=== PATIENT | female | born 1955 | race Caucasian/White ===

== ENCOUNTER → 2021-11-22 08:19 | Outpatient (CLI) | payer MEDICARE, OTHER, SELFPAY ==
[2021-11-22 09:27] LABS: Hematocrit 43.3 % (37-47); Hemoglobin 14.3 g/dL (12.0-15.0); Mean Corpuscular Hgb 29.3 pg (27.0-32.0); Mean Corpuscular Volume 88.7 fL (81-99); Mean Platelet Vol. 10.4 fl (6.2-12.0); Platelet Count 259 K/mm3 (150-450); RBC Distribution Width CV 12.9 % (11.6-14.6); Red Blood Count 4.88 M/mm3 (4.2-5.4); White Blood Count 7.1 K/mm3 (4.4-11.0)
[2021-11-22 10:00] LABS: AST(SGOT) 17 U/L (15-37); Alanine Aminotransfer ALT/SGPT 23 U/L (13-56); Albumin, Serum 3.6 g/dL (3.2-5.0); Alkaline Phosphatase 105 U/L (45-117); Anion Gap 4 (5-15); BUN 24 mg/dL (7-18); BUN/Creat Ratio 23.5 RATIO (10-20); Calcium,Total 8.9 mg/dL (8.5-10.1); Chloride 105 mmol/L (98-107); Cholesterol 183 mg/dL (200); Creatinine, Serum 1.02 mg/dL (0.55-1.02); EST Glomerular Filtration Rate 58 mL/min (>60); Est Glom Filt Rate - Afr Amer 70 mL/min (>60); Globulin 3.5 g/dL (2.2-4.2); Glucose 109 mg/dL (74-106); High Density Lipoprotein 41 mg/dL; Potassium 4.1 mmol/L (3.5-5.1); Protein, Total 7.1 g/dL (6.4-8.2); Sodium Level 139 mmol/L (136-145); Thyroid Stim Hormone (TSH) 1.42 uIU/mL (0.358-3.74); Triglycerides 90 mg/dL; Very Low Density Lipoprotein 18 mg/dL (5-40)
== END ==
DX: I10 Essential (primary) hypertension (principal); Z13.1 Encounter for screening for diabetes mellitus
CPT/HCPCS: 36415; 80053; 80061; 84443; 85027

== ENCOUNTER 2022-06-01 22:47 | Emergency (ER) | payer MEDICARE, OTHER, SELFPAY ==
[2022-06-01 22:50] VITALS: BP 149/92; PULSE 78; RESP 16; TEMP 37.1; O2SAT 97; BMI 34.0
--- NOTE | 2022-06-01 23:26 | EX.ED.DYSGE1 ---
HPI History of Present Illness Chief Complaint: Lower Extremity Injury Informant: patient Narrative Narrative: Patient cut the back of her right heel on a michael piece of metal while kayaking 3 days ago. She states it still sore. It sore locally and is not moving up the calf. But he has had a little bit of drainage. Its got a little redness. She also has not had a tetanus shot in years. She has no numbness tingling. She has no nausea vomiting fevers or chills. No history of diabetes. Only medical problem is high blood pressure Takes antihypertensive Allergy to penicillin?causes hives. However, she is taken Augmentin without any trouble. PFSH PFSH Home Medications amoxicillin 875 mg-potassium clavulanate 125 mg tablet 1 tab PO BID #20 tabs 06/01/22 [Rx Last Taken Unknown] Allergy/AdvReac Type Severity Reaction Status Date / Time Penicillins Allergy Hives Verified 06/01/22 22:54 Social History Smoking Status: Never smoker ROS ROS ED Constitutional Constitutional ED: Denies chills, fever(s) or subjective Gastrointestinal Gastrointestinal: Denies nausea or vomiting Musculoskeletal Musculoskeletal: Denies arthralgias or myalgias Integumentary Reports Abrasions and other Details: See history of present illness Neurologic Neurologic: Denies paresthesias Hematologic/Lymphatic Hematologic/Lymphatic: Denies easy bleeding or easy bruising Allergic/Immunologic Allergic/Immunologic ED: Denies urticaria EXAM Physical Exam Const Vital Signs: 06/01/22 22:50 Temperature 98.7 F Temperature Source Temporal Pulse Rate 78 Respiratory Rate 16 Blood Pressure 149/92 H Blood Pressure Mean 111 Pulse Ox 97 Oxygen Delivery Method Room Air Positive well nourished and well developed General Appearance ED: well developed and NAD HEENT Reports moist mucous membranes Chest Wall inspection of chest normal Resp normal respiratory effort Extremity Extremity Narrative: There is a superficial abrasion/laceration to posterior heel. This is only about a centimeter and a half above the ground when she is standing. There is some mild erythema but not significant. Very mild swelling. But there is a little moisture and drainage right at the wound. No tenderness or swelling more proximally. No cord. No distended veins. Neuro oriented x3 Skin Skin Narrative: See above. MDM MDM MDM Narrative Medical decision making narrative: Patient will have tetanus updated. She states she is taken Augmentin without problems before so we will use this despite her allergy to penicillin. I explained that if she gets pain or swelling further up she may need to be seen here or in her primary physician's office for ultrasound studies but at this point she has a Wells criteria of -2. Discharge Plan Triage Chief Complaint: Lower Extremity Injury ED Provider: Rodolfo Win Dx/Rx/DC Orders Clinical Impression: Infection, wound status post trauma Instructions: ED Wound Check (Infection) Prescriptions: New amoxicillin-pot clavulanate 875-125 mg tablet 1 tab PO BID Qty: 20 0RF Primary Care Provider: ROMMEL FLORES Referrals: ROMMEL FLORES [Other] - 3-5 Days Disposition Disposition: Home, Self Care
[2022-06-01] MEDS: Diphth,Pertuss(Acell),Tet Vac 0.5 ML Vial IM (23:47)
[2022-06-01] MEDS: Amox/Clavulanate 875 MG Tablet PO (23:47)
[2022-06-01 23:49] VITALS: BP 122/76; PULSE 74; RESP 17; O2SAT 97
== END 2022-06-01 23:52 | disposition home or self-care (01) ==
LOC: ED 23:41
PROVIDERS: Emergency Provider Emergency Medicine; Visit Provider Emergency Medicine
DX: S91.311A Laceration without foreign body, right foot, initial encounter (principal); L08.9 Local infection of the skin and subcutaneous tissue, unspecified; R03.0 Elevated blood-pressure reading, without diagnosis of hypertension; Z79.899 Other long term (current) drug therapy; X58.XXXA Exposure to other specified factors, initial encounter; Y93.16 Activity, rowing, canoeing, kayaking, rafting and tubing; Z23 Encounter for immunization
CPT/HCPCS: 90471; 90715; 99282

== ENCOUNTER → 2022-06-06 | Outpatient (CLI) | payer MEDICARE, OTHER, SELFPAY ==
[2022-06-06 10:48] LABS: Hematocrit 44.8 % (37-47); Hemoglobin 14.5 g/dL (12.0-15.0); Mean Corp Hgb Conc 32.4 g/dL (32-36); Mean Corpuscular Hgb 29.4 pg (27.0-32.0); Mean Corpuscular Volume 90.7 fL (81-99); Mean Platelet Vol. 10.3 fl (6.2-12.0); Platelet Count 245 K/mm3 (150-450); RBC Distribution Width CV 13.5 % (11.6-14.6); RBC Distribution Width SD 45.3 fl (35.1-43.9); Red Blood Count 4.94 M/mm3 (4.2-5.4); White Blood Count 5.5 K/mm3 (4.4-11.0)
[2022-06-06 11:27] LABS: ALB/GLOB Ratio 0.9 RATIO (0.9-2.4); AST(SGOT) 22 U/L (15-37); Alanine Aminotransfer ALT/SGPT 31 U/L (13-56); Albumin, Serum 3.5 g/dL (3.2-5.0); Alkaline Phosphatase 96 U/L (45-117); Anion Gap 5 (5-15); BUN 21 mg/dL (7-18); BUN/Creat Ratio 17.1 RATIO (10-20); Chloride 105 mmol/L (98-107); Cholesterol 201 mg/dL (200); Creatinine, Serum 1.23 mg/dL (0.55-1.02); EST Glomerular Filtration Rate 47 mL/min (>60); Est Glom Filt Rate - Afr Amer 56 mL/min (>60); Globulin 3.9 g/dL (2.2-4.2); Glucose 101 mg/dL (74-106); High Density Lipoprotein 34 mg/dL; Potassium 4.8 mmol/L (3.5-5.1); Protein, Total 7.4 g/dL (6.4-8.2); Sodium Level 138 mmol/L (136-145); Thyroid Stim Hormone (TSH) 1.99 uIU/mL (0.358-3.74); Triglycerides 129 mg/dL; Very Low Density Lipoprotein 26 mg/dL (5-40)
== END | disposition home or self-care (01) ==
LOC: LAB 09:10
DX: I10 Essential (primary) hypertension (principal); Z13.1 Encounter for screening for diabetes mellitus
CPT/HCPCS: 36415; 80053; 80061; 84443; 85027

== ENCOUNTER → 2022-11-25 | Outpatient (CLI) | payer MEDICARE, SELFPAY ==
[2022-11-25 12:15] LABS: Hematocrit 44.9 % (37-47); Hemoglobin 14.8 g/dL (12.0-15.0); Mean Corpuscular Hgb 29.5 pg (27.0-32.0); Mean Corpuscular Volume 89.6 fL (81-99); Mean Platelet Vol. 9.9 fl (6.2-12.0); Platelet Count 261 K/mm3 (150-450); RBC Distribution Width CV 13.3 % (11.6-14.6); RBC Distribution Width SD 43.4 fl (35.1-43.9); Red Blood Count 5.01 M/mm3 (4.2-5.4); White Blood Count 7.3 K/mm3 (4.4-11.0)
[2022-11-25 12:46] LABS: ALB/GLOB Ratio 0.9 RATIO (0.9-2.4); AST(SGOT) 27 U/L (15-37); Alanine Aminotransfer ALT/SGPT 35 U/L (13-56); Albumin, Serum 3.6 g/dL (3.2-5.0); Alkaline Phosphatase 100 U/L (45-117); Anion Gap 6 (5-15); BUN 21 mg/dL (7-18); BUN/Creat Ratio 18.9 RATIO (10-20); Chloride 102 mmol/L (98-107); Cholesterol 190 mg/dL (200); Creatinine, Serum 1.11 mg/dL (0.55-1.02); EST Glomerular Filtration Rate 52 mL/min (>60); Est Glom Filt Rate - Afr Amer 63 mL/min (>60); Globulin 3.8 g/dL (2.2-4.2); Glucose 101 mg/dL (74-106); High Density Lipoprotein 36 mg/dL; Potassium 3.8 mmol/L (3.5-5.1); Protein, Total 7.4 g/dL (6.4-8.2); Sodium Level 137 mmol/L (136-145); Thyroid Stim Hormone (TSH) 1.74 uIU/mL (0.358-3.74); Triglycerides 162 mg/dL; Very Low Density Lipoprotein 32 mg/dL (5-40)
== END | disposition home or self-care (01) ==
DX: I10 Essential (primary) hypertension (principal); Z13.1 Encounter for screening for diabetes mellitus
CPT/HCPCS: 36415; 80053; 80061; 84443; 85027

== ENCOUNTER → 2023-06-19 | Outpatient (CLI) | payer MEDICARE, SELFPAY ==
[2023-06-19 09:50] LABS: Hematocrit 44.2 % (37-47); Hemoglobin 14.3 g/dL (12.0-15.0); Mean Corp Hgb Conc 32.4 g/dL (32-36); Mean Corpuscular Hgb 29.3 pg (27.0-32.0); Mean Corpuscular Volume 90.6 fL (81-99); Mean Platelet Vol. 10.5 fl (6.2-12.0); Platelet Count 263 K/mm3 (150-450); RBC Distribution Width CV 12.7 % (11.6-14.6); RBC Distribution Width SD 41.5 fl (35.1-43.9); Red Blood Count 4.88 M/mm3 (4.2-5.4); White Blood Count 7.7 K/mm3 (4.4-11.0)
[2023-06-19 10:36] LABS: AST(SGOT) 11 U/L (15-37); Alanine Aminotransfer ALT/SGPT 24 U/L (13-56); Albumin, Serum 3.5 g/dL (3.2-5.0); Alkaline Phosphatase 93 U/L (45-117); Anion Gap 6 (5-15); BUN 27 mg/dL (7-18); Calcium,Total 8.9 mg/dL (8.5-10.1); Chloride 107 mmol/L (98-107); Cholesterol 200 mg/dL (200); Creatinine, Serum 0.87 mg/dL (0.55-1.02); EST Glomerular Filtration Rate 69 mL/min (>60); Est Glom Filt Rate - Afr Amer 83 mL/min (>60); Globulin 3.6 g/dL (2.2-4.2); Glucose 113 mg/dL (74-106); High Density Lipoprotein 42 mg/dL; Potassium 3.9 mmol/L (3.5-5.1); Protein, Total 7.1 g/dL (6.4-8.2); Sodium Level 138 mmol/L (136-145); Triglycerides 85 mg/dL; Very Low Density Lipoprotein 17 mg/dL (5-40)
== END | disposition home or self-care (01) ==
LOC: LAB 08:49
PROVIDERS: PCP Physician Assistant; Referring Provider Physician Assistant; Visit Provider Physician Assistant
DX: I10 Essential (primary) hypertension (principal); Z13.6 Encounter for screening for cardiovascular disorders; Z13.220 Encounter for screening for lipoid disorders
CPT/HCPCS: 36415; 80053; 80061; 84443; 85027

== ENCOUNTER 2023-06-24 19:42 | Emergency (ER) | payer MEDICARE, SELFPAY ==
[2023-06-24 19:43] VITALS: BP 153/99; PULSE 72; RESP 16; TEMP 36.4; O2SAT 97; BMI 35.6
--- NOTE | 2023-06-24 21:02 | EKG12_ITS ---
Test Reason : SOB Blood Pressure : / mmHG Vent. Rate : 068 BPM Atrial Rate : 068 BPM P-R Int : 178 ms QRS Dur : 094 ms QT Int : 386 ms P-R-T Axes : 009 -09 -04 degrees QTc Int : 410 ms Normal sinus rhythm Minimal voltage criteria for LVH, may be normal variant ( R in aVL ) Nonspecific ST and T wave abnormality Abnormal ECG Confirmed by ADA FORD, ENMANUEL ([id number]), editor greeting card MARLON WEBSTER ([id number]) on 06/30/2023 1:59:02 PM Referred By: Confirmed By:OSMANY CABALLERO MD
--- NOTE | 2023-06-24 21:03 | ED.VIS.DYS ---
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 Although she has been experiencing this she states she did not tell her primary care physician about it. Last week she was diagnosed with a UTI for which she was started on Macrobid. She denies any chest pain but states that whenever she exerts herself she becomes very short of breath. She denies any bleeding diathesis or dark stool, she recently had lab work which was grossly unremarkable, she states she has chronic kidney disease and was concerned about that as well. However, she has low energy, and is concerned about her shortness of breath and dyspnea on exertion. [facility] Medical History Cardiomegaly HTN (hypertension) Renal failure Home Medications amoxicillin 875 mg-potassium clavulanate 125 mg tablet 1 tab PO BID #20 tabs 06/01/22 [Rx Last Taken Unknown] ondansetron 4 mg disintegrating tablet 4 mg PO Q6H PRN nausea and vomiting #20 tabs 06/24/23 [Rx Last Taken Unknown] Allergy/AdvReac Type Severity Reaction Status Date / Time Penicillins Allergy Hives Verified 06/24/23 19:47 Social History Smoking Status: Never smoker ROS ROS ED ROS Narrative Constitutional: No fever, no chills. Generalized weakness, low energy. HEENT: No sore throat. No neck pain. No loss of vision. No rhinorrhea. Cardiovascular: No chest pain. No palpitations. No pedal edema. Respiratory: No cough, dyspnea on exertion and shortness of breath. Abdominal: No abdominal pain. No nausea. No vomiting. Genitourinary: No dysuria. No hematuria although was told had microscopic blood in urine, and is currently being treated for UTI. Musculoskeletal: No myalgias. No arthralgias. Neurologic: No headaches. No dizziness. No lightheadedness. Skin: No rash. No change in color. Psychiatric: No depression. No anxiety. EXAM Physical Exam Narrative Exam Narrative: Afebrile. Vital signs noted. Pulse ox 97 to 98% on room air without evidence of hypoxia. HEENT: Normocephalic. Atraumatic. PERRL, EOMI. Neck soft and supple. No point tenderness or step off. Cardiovascular: Regular rate and rhythm. No murmurs, rubs, or gallops appreciated. Respiratory: No tachypnea. Lungs clear to auscultation bilaterally. Gastrointestinal: Abdomen soft, nontender, with normoactive bowel sounds. No rebound or guarding. Neurological: Awake. Alert. Nonfocal, nonlateralizing. Skin: No rash. Normal color. No pallor. Musculoskeletal: No pedal edema. Full range of motion extremities. Const Vital Signs: 06/24/23 19:43 06/24/23 20:31 06/24/23 21:15 Temperature 97.5 F L Temperature Source Temporal Pulse Rate 72 Respiratory Rate 16 Respiratory Effort Normal Non-Labored Respiratory Depth Normal Respiratory Pattern Normal Blood Pressure 153/99 H Blood Pressure Mean 117 Pulse Ox 97 Oxygen Delivery Method Room Air Room Air Room Air MDM MDM MDM Narrative Medical decision making narrative: Given her dyspnea on exertion and shortness of breath, concern would be for pneumonia, pneumothorax, even COVID, versus anemia. However, I have low suspicion for any of these as a history and physical does not support or is not suggestive of any of these, and she has equal breath sounds. I do not feel that she needs to be swabbed for COVID as she is exerting no other signs except for dyspnea on exertion. She does not appear anemic on examination. Chest x-ray in 2 views will be obtained along with baseline laboratories. I will also obtain an EKG and 1 enzyme, cardiac, as I do not feel she requires serial enzymes. I reviewed her laboratory work that she has with her in printed form and she has a normal creatinine of 0.8 and she has normal hemoglobin. I reviewed her laboratory work from today and she has a normal white count of 9.4, hemoglobin normal at 14.7, hematocrit 45.0, platelet count normal at 295. Electrolyte panel is grossly unremarkable with a sodium of 136, potassium normal at 3.5, chloride normal at 103, anion gap low at 4, she does have slightly elevated BUN of 34 with a creatinine of 1.12. This is consistent with her chronic kidney injury. Glucose is slightly elevated at 115 but she does have that normal anion gap/low at 4. AST is low at 11 with ALT of 27. High-sensitivity troponin is normal at 6. Chest x-ray in 2 views and interpreted by myself independently shows no evidence of pneumothorax or consolidation. I did review the radiology report which states there are subtle scattered infiltrates that could be infectious in the right clinical setting. Patient experienced nausea here in the emergency department so she was administered Zofran 4 mg intravenously, regarding these subtle infiltrates read by the radiologist, I will add a BNP to see if this is more congestive heart failure, and add a COVID and influenza swab as well, but it does not seem infectious as she states that she has not had a fever, and she has a normal white count of 9.4. BNP has returned and is normal at 9. I do not feel that her shortness of breath is from congestive heart failure. As this may be over read by the radiologist, even though her COVID is pending, that she be discharged safely home with follow-up. She does not want to wait for her COVID and influenza swab, and I do not feel that this would change her disposition. However, these did return prior to her discharge as she was waiting for meds to bed, and they are negative for influenza and COVID. I feel she can be discharged safely home with follow-up. I will write her prescription for Zofran for her nausea which may be attributed to her current antibiotic use. She states she only has 2 pills left. Return instructions to the emergency department were reviewed. Disposition is discharged home in stable condition. History & Record Review Discussion w/independent historian: Patient Additional record(s) reviewed:: Prior ED visit and Prior labs Lab Data Attestation: I reviewed the patient's lab results. Labs: Laboratory Results - last 24 hr 06/24/23 21:19 WBC 9.4 RBC 4.99 Hgb 14.7 Hct 45.0 MCV 90.2 MCH 29.5 MCHC 32.7 RDW Std Deviation 42.3 RDW Coeff of Oscar 12.9 Plt Count 295 MPV 10.0 Immature Gran % (Auto) 0.300 Neut % (Auto) 65.1 Lymph % (Auto) 20.3 [place] % (Auto) 8.0 Eos % (Auto) 5.7 H Baso % (Auto) 0.6 Absolute Neuts (auto) 6.1 Absolute Lymphs (auto) 1.90 Nucleated RBC % 0 Sodium 136 Potassium 3.5 Chloride 103 Carbon Dioxide 29.0 Anion Gap 4 L BUN 34 H Creatinine 1.12 H Estim Creat Clear Calc 39.08 Est GFR (MDRD) Af Amer 62 Est GFR (MDRD) Non-Af 52 L BUN/Creatinine Ratio 30.4 H Glucose 115 H Calcium 8.7 Total Bilirubin 0.30 AST 11 L ALT 27 Alkaline Phosphatase 113 Troponin I High Sens 6 B-Natriuretic Peptide 9.0 Total Protein 7.1 Albumin 3.6 Globulin 3.5 Albumin/Globulin Ratio 1.0 Radiography Diagnostic Testing: Clinical Impression(s) from Imaging Studies Chest X-Ray 06/24/23 21:23 IMPRESSION: Subtle scattered patchy opacities could represent infection the correct clinical setting. Electronically Signed: Phani Saldana MD at 22:09 EDT , Discharge Plan Triage Chief Complaint: Shortness of Breath ED Provider: David Bhagat Dx/Rx/DC Orders Clinical Impression: MITCHELL (dyspnea on exertion), SOB (shortness of breath), Nausea Instructions: ED Dyspnea Prescriptions: New ondansetron 4 mg tablet,disintegrating 4 mg PO Q6H PRN (Reason: nausea and vomiting) Qty: 20 0RF No Action amoxicillin-pot clavulanate 875-125 mg tablet 1 tab PO BID Qty: 20 0RF Primary Care Provider: Kevan Vaca Referrals: Kevan Vaca PA [Primary Care Provider] - 3-5 Days if not improving Disposition Disposition: Home, Self Care
[2023-06-24] MEDS: 0.9% Normal Saline (1000mL) 1,000 ML 150 ML IV (21:16)
--- NOTE | 2023-06-24 21:23 | RAD_ITS ---
INDICATION: Shortness of Breath EXAMINATION/TECHNIQUE: X-RAY - XR Chest 2 Views COMPARISON: None. FINDINGS: Subtle scattered patchy opacities. Tortuous and calcified thoracic aorta. The heart is not enlarged. No pleural effusion or pneumothorax. Degenerative changes of the thoracic spine. RAD/Chest PA and Lateral IMPRESSION: Subtle scattered patchy opacities could represent infection the correct clinical setting. Electronically Signed: Phani Saldana MD at 22:09 EDT ,
[2023-06-24 21:25] LABS: Absolute Neutrophil Count 6.1 X10^3/uL (2.0-7.7); Basophil# 0.06 X10^3/uL; Basophil% 0.6 % (0-1); Eosinophil# 0.53 X10^3/uL; Eosinophils% 5.7 % (0-5); Hemoglobin 14.7 g/dL (12.0-15.0); Lymphocyte % 20.3 % (19-41); Mean Corp Hgb Conc 32.7 g/dL (32-36); Mean Corpuscular Hgb 29.5 pg (27.0-32.0); Mean Corpuscular Volume 90.2 fL (81-99); Monocyte# 0.75 X10^3/uL; NRBC Flagged by Analyzer 0 % (0-5); Neutrophil # 6.11 X10^3/uL (2.7-7.7); Neutrophil % 65.1 % (47-70); Platelet Count 295 K/mm3 (150-450); RBC Distribution Width CV 12.9 % (11.6-14.6); RBC Distribution Width SD 42.3 fl (35.1-43.9); Red Blood Count 4.99 M/mm3 (4.2-5.4); White Blood Count 9.4 K/mm3 (4.4-11.0)
[2023-06-24 21:48] LABS: AST(SGOT) 11 U/L (15-37); Alanine Aminotransfer ALT/SGPT 27 U/L (13-56); Albumin, Serum 3.6 g/dL (3.2-5.0); Alkaline Phosphatase 113 U/L (45-117); Anion Gap 4 (5-15); BUN 34 mg/dL (7-18); BUN/Creat Ratio 30.4 RATIO (10-20); Calcium,Total 8.7 mg/dL (8.5-10.1); Chloride 103 mmol/L (98-107); Creatinine, Serum 1.12 mg/dL (0.55-1.02); EST Glomerular Filtration Rate 52 mL/min (>60); Est Glom Filt Rate - Afr Amer 62 mL/min (>60); Estimated Creatinine Clearance 39.08 ml/min; Globulin 3.5 g/dL (2.2-4.2); Glucose 115 mg/dL (74-106); Potassium 3.5 mmol/L (3.5-5.1); Protein, Total 7.1 g/dL (6.4-8.2); Sodium Level 136 mmol/L (136-145); Troponin-I HS 6 pg/mL (3.0-54.0)
[2023-06-24 21:49] VITALS: PULSE 60; RESP 20; O2SAT 97
[2023-06-24 22:30] VITALS: PULSE 66; RESP 20; O2SAT 98
[2023-06-24] MEDS: Ondansetron 4 MG/2 ML Vial IV (23:04)
== END 2023-06-24 23:34 | disposition home or self-care (01) ==
PROVIDERS: Emergency Provider Emergency Medicine; PCP Physician Assistant; Visit Provider Emergency Medicine
DX: R06.02 Shortness of breath (principal); R11.0 Nausea; I12.9 Hypertensive chronic kidney disease with stage 1 through stage 4 chronic kidney disease, or unspecified chronic kidney disease; N18.9 Chronic kidney disease, unspecified
CPT/HCPCS: 71046; 80053; 83880; 84484; 85025; 87428; 93005; 96361; 96374; 99282; J7030; J2405

== ENCOUNTER 2023-06-26 11:09 | Emergency (ER) | payer MEDICARE, SELFPAY ==
[2023-06-26 11:10] VITALS: BP 125/89; PULSE 86; RESP 18; TEMP 36.7; O2SAT 99; BMI 35.6
--- NOTE | 2023-06-26 12:09 | ED.RN ---
DOESNT WANT TO WAIT ANYMORE
== END 2023-06-26 12:09 | disposition left against medical advice (07) ==
LOC: ED 12:18
PROVIDERS: PCP Physician Assistant
DX: Z53.21 Procedure and treatment not carried out due to patient leaving prior to being seen by health care provider (principal)
CPT/HCPCS: 93005

== ENCOUNTER → 2025-02-07 | Outpatient (CLI) | payer MEDICARE, SELFPAY ==
[2025-02-07 16:18] LABS: Absolute Neutrophil Count 5.9 X10^3/uL (2.0-7.7); Basophil# 0.04 X10^3/uL; Basophil% 0.5 % (0-1); Eosinophils% 5.9 % (0-5); Hematocrit 42.4 % (37-47); Hemoglobin 13.9 g/dL (12.0-15.0); Lymphocyte % 16.5 % (19-41); Mean Corp Hgb Conc 32.8 g/dL (32-36); Mean Corpuscular Volume 88.5 fL (81-99); Mean Platelet Vol. 10.5 fl (6.2-12.0); Monocyte# 0.58 X10^3/uL; Monocyte% 6.8 % (0-10); NRBC Flagged by Analyzer 0 % (0-5); Neutrophil # 5.94 X10^3/uL (2.7-7.7); Neutrophil % 69.9 % (47-70); Platelet Count 284 K/mm3 (150-450); RBC Distribution Width CV 13.2 % (11.6-14.6); RBC Distribution Width SD 42.6 fl (35.1-43.9); Red Blood Count 4.79 M/mm3 (4.2-5.4); White Blood Count 8.5 K/mm3 (4.4-11.0)
[2025-02-07 17:25] LABS: ALB/GLOB Ratio 1.7 RATIO (0.9-2.4); AST(SGOT) 21 U/L (<=31); Alanine Aminotransfer ALT/SGPT 20 U/L (<=34); Albumin, Serum 4.4 g/dL (3.4-4.8); Alkaline Phosphatase 141 U/L (35-104); Anion Gap 12 (5-15); BUN 17 mg/dL (4-19); BUN/Creat Ratio 16.3 RATIO (10-20); Calcium,Total 9.8 mg/dL (7.6-11.0); Carbon Dioxide 26.9 mmol/L (21.0-32.0); Chloride 100 mmol/L (98-108); Cholesterol 133 mg/dL (<=200); Creatinine, Serum 1.01 mg/dL (0.70-1.20); EST Glomerular Filtration Rate 61 (>60); Globulin 2.6 g/dL (2.2-4.2); Glucose 102 mg/dL (70-99); High Density Lipoprotein 34 mg/dL; Low Density Lipoprotein Calc. 77 mg/dL; Potassium 4.4 mmol/L (3.3-5.1); Sodium Level 139 mmol/L (133-145); Total Bilirubin 0.62 mg/dL (0.00-1.30); Triglycerides 108 mg/dL; Very Low Density Lipoprotein 22 mg/dL (5-40); cholesterol:hdl ratio screen 3.88
== END | disposition home or self-care (01) ==
LOC: BIMLAB 14:42
PROVIDERS: PCP Internal Medicine; Referring Provider Internal Medicine; Visit Provider Internal Medicine
DX: I10 Essential (primary) hypertension (principal)
CPT/HCPCS: 36415; 80053; 80061; 84439; 84443; 85025

== ENCOUNTER → 2025-04-13 | Outpatient (CLI) | payer MEDICARE, SELFPAY ==
--- NOTE | 2025-04-13 10:19 | RAD_ITS ---
EXAM: XR Left Foot Complete, 3 or More Views CLINICAL INDICATION: LEFT HEEL PAIN TECHNIQUE: Frontal, lateral and oblique views of the left foot. COMPARISON: No relevant prior studies available. FINDINGS: BONES/JOINTS: Mild degenerative change of the intertarsal joints. No acute fracture. No dislocation. SOFT TISSUES: Soft tissue swelling. No radiopaque foreign body. RAD/Foot min 3 Views IMPRESSION: 1. Soft tissue swelling. 2. Degenerative changes as above. Reading Location: [facility]
== END | disposition home or self-care (01) ==
LOC: RAD 10:11
PROVIDERS: PCP Internal Medicine; Referring Provider Internal Medicine; Visit Provider Internal Medicine
DX: M79.672 Pain in left foot (principal)
CPT/HCPCS: 73630

== ENCOUNTER → 2025-06-18 | Outpatient (CLI) | payer MEDICARE, SELFPAY ==
--- OUTSIDE RECORDS SUMMARY | 2025-06-18 08:33 | XMS RPT_ITS | CCD ---
Author Organization [facility] Inform ion [facility] Care Team Providers Care Steward/Stewardess Second Class Name Role Phone Phani Rod Unavailable Unavailable SamJenna wright Jawperla Unavailable Unavailabl e Jenna Dave Jawamaliad Unavailable Unavailabl e Kevan Vaca Unavailable Unavailable Unavailable Marcel FORD, Phani Giang Primary Care Provider Holden FORD, Carlos De Luna Primary Care Provider Kevan Vaca PA-C Primary Care Provider KEVAN VACA Referring Unavailable KEVAN VACA Attending Unavailable KEVAN VACA Primary Care Unavailable Guillermina Rizzo DO Primary Care Provider PHIPPS CRISS, EL JENNIFER Admitting Unava ilable MOISE SILVEIRA, EL JENNIFER Attending Unava ilable GUILLERMINA RIZZO Primary Care Unavailable TILA SNEED Referring Unavailable GUSTAVOLKEVAN Primary Care Unavailable TILA SNEED Referring Unavailable NEWDELLLKEVAN Primary Care Unavailable PHIPPS CRISS, EL JENNIFER Referring Unava ilable GUSTAVOLKEVAN Primary Care Unavailable KEVAN VACA Primary Care Unavailable KEVAN VACA Primary Care Unavailable PHIPPS CRISS, EL JENNIFER Referring Unava ilable OBGUILLERMINA GALVEZ Primary Care Unavailable PHIPPS CRISS, EL JENNIFER Referring Unava ilable KEVAN VACA Primary Care Unavailable PHIPPS CRISS, EL JENNIFER Referring Unava ilable KEVAN VACA Primary Care Unavailable PHIPPS CRISS, EL JENNIFER Referring Unava ilable NEWBILL, KEVAN M Primary Care Unavailable PHIPPS CRISS, EL JENNIFER Referring Unava ilable NEWBILL, KEVAN M Primary Care Unavailable PHIPPS CRISS, EL JENNIFER Referring Unava ilable NEWBILL, KEVAN M Primary Care Unavailable PHIPPS CRISS, EL JENNIFER Referring Unava ilable NEWBILL, KEVAN M Primary Care Unavailable PHIPPS CRISS, EL JENNIFER Referring Unava ilable NEWBILL, KEVAN M Primary Care Unavailable PHIPPS CRISS, EL JENNIFER Referring Unava ilable NEWBILL, KEVAN M Primary Care Unavailable PHIPPS CRISS, EL JENNIFER Referring Unava ilable NEWBILL, KEVAN M Primary Care Unavailable PHIPPS CRISS, EL JENNIFER Referring Unava ilable NEWBILL, KEVAN M Primary Care Unavailable PHIPPS CRISS, EL JENNIFER Referring Unava ilable NEWBILL, KEVAN M Primary Care Unavailable PHIPPS CRISS, LE JENNIFER Referring Unava ilable NEWBILL, KEVAN M Primary Care Unavailable PHIPPS CRISS, EL JENNIFER Referring Unava ilable NEWBILL, KEVAN M Primary Care Unavailable PHIPPS CRISS, EL JENNIFER Referring Unava ilable NEWBILL, KEVAN M Primary Care Unavailable PHIPPS CRISS, EL JENNIFER Referring Unava ilable NEWBILL, KEVAN M Primary Care Unavailable PHIPPS CRISS, EL JENNIFER Referring Unava ilable NEWBILL, KEVAN M Primary Care Unavailable PHIPPS CRISS, EL JENNIFER Referring Unava ilable NEWBILL, KEVAN M Primary Care Unavailable PHIPPS CRISS, EL JENNIFER Referring Unava ilable NEWBILL, KEVAN M Primary Care Unavailable PHIPPS CRISS, EL JENNIFER Referring Unava ilable NEWBILL, KEVAN M Primary Care Unavailable PHIPPS CRISS, EL JENNIFER Referring Unava ilable NEWBILL, KEVAN M Primary Care Unavailable PHIPPS CRISS, EL JENNIFER Referring Unava ilable NEWBILL, KEVAN M Primary Care Unavailable PHIPPS CRISS, EL JENNIFER Referring Unava ilable NEWBILL, KEVAN M Primary Care Unavailable PHIPPS CRISS, EL JENNIFER Referring Unava ilable NEWBILL, KEVAN M Primary Care Unavailable PHIPPS CRISS, EL JENNIFER Referring Unava ilable OBERHAUSER, GUILLERMINA L Primary Care Unavailable PHIPPS CRISS, EL JENNIFER Referring Unava ilable OBERHAUSER, GUILLERMINA L Primary Care Unavailable PHIPPS CRISS, EL JENNIFER Referring Unava ilable NEWBILL, KEVAN M Primary Care Unavailable PHIPPS CRISS, EL JENNIFER Referring Unava ilable OBERHAUSER, GUILLERMINA L Primary Care Unavailable PHIPPS CRISS, EL JENNIFER Referring Unava ilable OBERHAUSER, GUILLERMINA L Primary Care Unavailable PHIPPS CRISS, EL JENNIFER Referring Unava ilable OBERHAUSER, GUILLERMINA L Primary Care Unavailable PHIPPS CRISS, EL JENNIFER Referring Unava ilable OBERHAUSER, GUILLERMINA L Primary Care Unavailable PHIPPS CRISS, EL JENNIFER Referring Unava ilable OBERHAUSER, GUILLERMINA L Primary Care Unavailable PHIPPS CRISS, EL JENNIFER Referring Unava ilable OBERHAUSER, GUILLERMINA L Primary Care Unavailable PHIPPS CRISS, EL JENNIFER Referring Unava ilable OBERHAUSER, GUILLERMINA L Primary Care Unavailable PHIPPS CRISS, EL JENNIFER Referring Unava ilable OBERHAUSER, GUILLERMINA L Primary Care Unavailable PHIPPS CRISS, EL JENNIFER Referring Unava ilable OBERHAUSER, GUILLERMINA L Primary Care Unavailable PHIPPS CRISS, EL JENNIFER Referring Unava ilable OBERHAUSER, GUILLERMINA L Primary Care Unavailable OBERHAUSER, GUILLERMINA L Primary Care Unavailable RICHARD KEYES Attending Unavailable Oberhauser DO, Guillermina L Unavailable [phone] [facility] Primary Care Provider [phone] [facility] Kevan RIVERO Referring Provider [phone] Yasmany FORD, Dr. Aguirre Attending Provider [phone] Yasmany FORD, Dr. Aguirre Primary Care Provider Dr. Timothy Jade MD Referring Provider [phone] Rubina [employer]-CLelia Attending Provider [phone] OBERHAUSER, GUILLERMINA L Attending Unavailable OBERHAUSER, GUILLERMINA L Referring Unavailable OBERHAUSER, GUILLERMINA L Primary Care Unavailable EL MCBRIDE Attending Unava ilable OBERHAUSER, GUILLERMINA L Primary Care Unavailable Newbill, Kevan Primary Care Unavailable Newbill, Kevan Referring Unavailable Oleghe, Efewongbe Attending Unavailable Oleghe, Efewongbe Primary Care Unavailable Kam Jacobson Attending Unavailable WunningKam Referring Unavailable Oleghe, Efewongbe Primary Care Unavailable Lelia Cespedes Attending Unavailable Oleghe, Efewongbe Referring Unavailable Oleghe, Efewongbe Primary Care Unavailable Oleghe, Efewongbe Attending Unavailable Oleghe, Efewongbe Referring Unavailable Oleghe, Efewongbe Referring Unavailable Oleghe, Efewongbe Primary Care Unavailable Oleghe, Efewongbe Attending Unavailable Oleghe, Efewongbe Primary Care Unavailable Oleghe, Efewongbe Attending Unavailable Oleghe, Efewongbe Referring Unavailable Allergies Allergy Classification Reported Allergen(s) Allergy Type Date of Onset Reaction(s) Facility (1 source) acetaminophen / HYDROcodone; Translations: [Vicodin] Drug Allergy [facility] Repository (1 source) acetaminophen / oxyCODONE; Translations: [Percocet 5/325] Drug Allergy [facility] Repository (1 source) iodine; Translations: [iodine] Drug Allergy [facility] Repository (20 sources) Penicillins; Translations: [penicillins] Propensity to adverse reactions to drug (disorder) 02-11-20 11 Vomiting, Unknown [facility] Repository (1 source) Darvocet-N 100; Translations: [Darvocet-N 100] Propensity to adverse reactions to drug (disorder) [facility] Repository (5 sources) acetaminophen / propoxyphene; Translations: [Darvocet-N 50 TABS] Drug Allergy [facility] Work Phone: (5 sources) Peanut-derived; Translations: [Peanut-derived] Allergy to drug (finding) [facility] Work Phone: (20 sources) Acetaminophen / HYDROcodone; Translations: [HYDROCODONE-ACETAM INOPHEN] Drug Allergy 02-11-20 11 GI Upset, Other [facility] (20 sources) Amoxicillin / Clavulanate; Translations: [Augmentin TABS] Drug Allergy 07-08-20 Unknown, GI Upset [facility] (20 sources) Sulfamethoxazole / Trimethoprim; Translations: [Bactrim TABS] Drug Allergy 02-14-20 Unknown, GI Upset [facility] Work Phone: (20 sources) peanut allergenic extract; Translations: [PEANUT] Drug Allergy 02-14-20 [facility] Work Phone: (20 sources) Propoxyphene N-Acetaminophen; Translations: [PROPOXYPHENE N-ACETAMINOPHEN] Drug Allergy 02-14-20 Unknown, GI Upset [facility] Work Phone: (20 sources) Propoxyphene-Acetam inophen; Translations: [PROPOXYPHENE-ACETA MINOPHEN] Drug Allergy 02-14-20 [facility] Work Phone: (2 sources) Sulfamethoxazole / Trimethoprim; Translations: [SULFAMETHOXAZOLE-T RIMETHOPRIM] Drug Allergy 02-14-20 [facility] Repository (2 sources) AMOXICILLIN-POT CLAVULANATE; Translations: [AMOXICILLIN-POT CLAVULANATE] Propensity to adverse reactions to drug (disorder) 07-08-20 [facility] Repository (4 sources) Opioids - Morphine Analogues Propensity to adverse reactions 02-08-20 gi upset [facility] (1 source) peanut allergenic extract Drug Allergy 04-13-20 [facility] Repository (1 source) Opioids - Morphine Analogues Drug allergy (disorder) 04-13-20 [facility] Repository Medications Current Medications Medication Drug Class(es) Dates Sig (Normalized) Sig (Original) amLODIPine 5 mg oral tablet (20 sources) Dihydropyridine Calcium Channel Adelaida Start: 02-07-2025 take 1 tablet by mouth once daily Amlodipine 5 mg tablet Active 5 mg PO daily February 07, 2025 12:00am Start: 05-24-2024 take 1 tablet by once daily amLODIPine (Norvasc) 5 mg tablet Indications: Essential (primary) hypertension TAKE 1 TABLET BY MOUTH EVERY DAY DIRECTED 90 tablet 3 05/24/2024 Active Start: 05-27-2023 take 1 tablet by mahad th once daily amLODIPine (Norvasc) 5 mg tablet Indications: Essential (primary) hypertension TAKE 1 TABLET BY MOUTH EVERY DAY DIRECTED 90 tablet 3 05/27/2023 Active Start: 04-05-2022 take 1 tablet by mahad th once daily amLODIPine (NORVASC) 5 mg tablet TAKE 1 TABLET BY MOUTH EVERY DAY 90 tablet 4 04/05/2022 Active Start: 03-30-2021 take 1 tablet by mahad th once daily amLODIPine Besylate 5 MG Oral Tablet TAKE 1 TABLET DAILY DIRECTED. Quantity: 90 Refills: 3 Ordered: 04-Apr-2022 Guillermina Rizzo DO Start : 30-Mar-2021 Active Comment on above: TAKE 1 TABLET BY MAHAD TH EVERY DAY aspirin 81 mg delayed release oral tablet (14 sources) Platelet Aggregation Inhibitor, Nonsteroidal Anti-inflammatory Drug Start: 02-07-2025 Aspirin (Adult Low Dose Aspirin) 81 mg tablet,delayed release (DR/EC) Active 81 mg PO daily February 07, 2025 12:00am Start: 09-10-2023 End: 09-09-2024 aspirin 81 mg chewable table t Indications: Atherosclerosis Chew 1 tablet (81 mg) once daily. 30 tablet 11 09/10/2023 09/09/2024 Active take 1 tablet by mahad th once daily aspirin 81 mg EC tablet Take 1 tablet (81 mg) by mouth once daily. Active atorvastatin 40 mg oral tablet (15 sources) HMG-CoA Reductase Inhibitor Start: 02-07-2025 Atorvastatin 40 mg tablet Active mg PO February 07, 2025 12:00am Start: 10-26-2024 take 1 tablet by mahad th once daily atorvastatin (Lipitor) 40 mg tablet Indications: Atherosclerosis Take 1 tablet (40 mg) by mouth once daily. 90 tablet 3 10/26/2024 Active Start: 09-10-2023 End: 10-26-2024 take 1 tablet by mouth once daily atorvastatin (Lipitor) 40 mg tablet Indications: Atherosclerosis TAKE 1 TABLET BY MOUTH EVERY DAY 90 tablet 1 06/24/2024 10/26/2024 Discontinued (Reorder) clopidogrel 75 mg oral tablet (15 sources) [id number] Platelet Inhibitor Start: 02-07-2025 take 1 tablet by mouth once daily Clopidogrel 75 mg tablet Active 75 mg PO daily February 07, 2025 12:00am Start: 10-26-2024 take 1 tablet by mahad th once daily clopidogrel (Plavix) 75 mg tablet Indications: 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 (Multi) Take 1 tablet (75 mg) by mouth once daily. 90 tablet 3 10/26/2024 Active Start: 10-16-2023 End: 10-26-2024 take 1 tablet by mouth once daily clopidogrel (Plavix) 75 mg tablet Indications: 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 (Multi) TAKE 1 TABLET BY MOUTH ONCE DAILY. 90 tablet 1 07/09/2024 10/26/2024 Discontinued (Reorder) cyclobenzaprine hydrochloride 10 mg oral tablet (4 sources) Muscle Relaxant Start: 03-23-2024 take 10 mg by mouth once 10 mg, oral, Once, On Fri03/23/24 at 2230, For 1 dose Start: 03-23-2024 End: 03-30-2024 take 1 tablet by mouth three times daily as needed for muscle spasms cyclobenzaprine (Flexeril) 10 mg tablet Indications: Trapezius muscle spasm Take 1 tablet (10 mg) by mouth 3 times a day as needed for muscle spasms for up to 7 days. 21 tablet 03/23/2024 Active EPINEPHrine 0.01 mg/ml / lidocaine hydrochloride 10 mg/ml injectable solution (1 source) Antiarrhythmic, alpha-Adrenergic Agonist, beta-Adrenergic Agonist, Catecholamine, Amide Local Anesthetic Start: 10-16-2023 3 mL, injection, As needed, bleeding at sheath site, Starting on Fri10/16/23 at 1115, Recovery (only) MD to evaluate prior to administration hydroCHLOROthiazide 12.5 mg / lisinopril 20 mg oral tablet (20 sources) Thiazide Diuretic, Angiotensin Converting Enzyme Inhibitor Start: 02-07-2025 Lisinopril-Hydrochlo rothiazide 20-12.5 mg tablet Active 1 {tbl} PO daily February 07, 2025 12:00am Start: 02-20-2024 take 1 tablet by mahad th once daily lisinopriL-hydrochlorothiazide 20-12.5 m g tablet Indications: Essential (primary) hypertension TAKE 1 TABLET BY MOUTH EVERY DAY 90 tablet 3 02/20/2024 Active Start: 04-05-2022 take 1 tablet by mahad th twice daily lisinopril-hydroCHLOROthiazide (PRINZIDE,ZESTORETIC) 20-12.5 mg per tablet TAKE 1 TABLET BY MOUTH TWICE A DAY 180 tablet 4 04/05/2022 Active Start: 04-04-2022 take 1 tablet by mahad th once daily Lisinopril-hydroCHLOROthiazide 20-12.5 M G Oral Tablet TAKE 1 TABLET DAILY. Quantity: 90 Refills: 3 Ordered: 05-Dec-2022 Kevan Vaca PA-C Start : 04-Apr-2022 Active take 1 tablet by mahad th twice daily lisinopriL-hydrochlorothiazide 20-12.5 m g tablet Take 1 tablet by mouth 2 times a day. Active Comment on above: TAKE 1 TABLET BY MAHAD TH TWICE A DAY nitrofurantoin, macrocrystals 25 mg / nitrofurantoin, monohydrate 75 mg oral capsule (2 sources) Nitrofuran Antibacterial Start: 06-18-20 End: 06-30-20 take 1 capsule by mouth twice daily nitrofurantoin, macrocrystal-monohyd rate, (Macrobid) 100 mg capsule Indications: Dysuria , Acute cystitis with hematuria Take 1 capsule (100 mg) by mouth 2 times a day for 7 days. 14 capsule 0 06/18/2023 06/30/2023 Discontinued (Therapy completed) predniSONE 10 mg oral tablet (1 source) Start: 02-14-20 End: 02-19-20 take 1 tablet by mouth twice daily predniSONE (Deltasone) 10 mg tablet Indications: Dysfunction of left eustachian tube , Seborrheic dermatitis Take 1 tablet (10 mg) by mouth 2 times a day for 5 days. 10 tablet 0 02/13/2023 02/18/2023 Active traMADol hydrochloride 50 mg oral tablet (1 source) Opioid Agonist Start: 03-23-20 End: 03-26-20 take 1 tablet by mouth every six hours for pain traMADol (Ultram) 50 mg tablet Indications: Trapezius muscle spasm Take 1 tablet (50 mg) by mouth every 6 hours if needed for severe pain (7 - 10) for up to 3 days. 12 tablet 03/23/2024 03/26/2024 Active Completed/Discontinued Medications Medication Drug Class(es) Dates Sig (Normalized) Sig (Original) amoxicillin 875 mg / clavulanate 125 mg oral tablet (10 sources) Penicillin-class Antibacterial Start: 06-01-2022 End: 02-07-2025 Amoxicillin-Pot Clavulanate 875-125 mg tablet Discontinued 1 {tbl} PO TWICE A DAY June 01, 2022 12:00am February 07, 2025 1:54pm Start: 06-01-2022 take 1 tablet by mahad twice daily Amoxicillin-Pot Clavulanate Active 1 TABLET PO TWICE A DAY June 01, 2022 12:00am azithromycin 250 mg oral tablet (2 sources) Macrolide Antimicrobial Start: 02-13-2023 End: 06-18-2023 azithromycin (Zithromax) 250 mg tablet Indications: Dysfunction of left eustachian tube 2 tabs po day 1 1 tab po every day days 2-5 6 tablet 0 02/13/2023 06/18/2023 Discontinued (Therapy completed) bacitracin 0.5 unt/mg ophthalmic ointment (1 source) Start: 07-08-2014 bacitracin ophthalmic ophthalmic ointment Use 1 application in both eyes daily at bedtime. One application at bedtime 1 Tube 0 07/08/2014 Active Comment on above: Use 1 application in both eyes daily at bedtime. One application at bedtime baclofen 10 mg oral tablet (1 source) gamma-Aminobutyri c Acid-ergic Agonist Start: 02-22-2011 baclofen 10 mg ORAL tablet Indications: Lumbar disc herniation with radiculopathy , Lumbosacral neuritis Take by mouth. 1/2, 1, OR 2 TABLETS BEFORE BED NEEDED FOR MUSCLE SPASM. 45 tablet 0 02/22/2011 Active Comment on above: Take by mouth. 1/2, 1, OR 2 TABLETS BEFORE BED NEEDED FOR MUSCLE SPASM. brompheniramine maleate 0.4 mg/ml / dextromethorphan hydrobromide 2 mg/ml / pseudoephedrine hydrochloride 6 mg/ml oral solution (2 sources) alpha-Adrenergic Agonist, Uncompetitive G-dpqiap-W-aspart ate Receptor Antagonist, Sigma-1 Agonist Start: 02-13-2023 End: 06-18-2023 brompheniramine- pseudoeph-DM (Bromfed DM) 2-30-10 mg/5 mL syrup Indications: Dysfunction of left eustachian tube 5 mL po q4 hrs prn congestion/cold/ allergy symtpoms 120 mL 1 02/13/2023 06/18/2023 Discontinued (Therapy completed) doxycycline hyclate 100 mg oral tablet (2 sources) Tetracycline-clas s Drug Start: 06-05-2022 End: 11-27-2022 take 1 tablet by mouth twice daily Doxycycline Hyclate 100 MG Oral Tablet TAKE 1 TABLET TWICE DAILY UNTIL GONE. Quantity: 14 Refills: 0 Ordered: 05-Jun-2022 Kevan Vaca PA-C Start : 05-Jun-2022 End : 27-Nov-2022 Complete gabapentin 300 mg oral capsule (1 source) Anti-epileptic Agent Start: 02-22-2011 take 2 capsules by mouth three times daily gabapentin (NEURONTIN) 300 mg ORAL capsule Indications: Lumbar disc herniation with radiculopathy , Lumbosacral neuritis Take by mouth. FOLLOW DOSING SCHEDULE GIVEN BY DOCTOR TO REACH 2 PILLS 3 TIMES PER DAY 180 capsule 1 02/22/2011 Active Comment on above: Take by mouth. FOLLO W DOSING SCHEDULE GIVEN BY DOCTOR TO REACH 2 PILLS 3 TIMES PER DAY hydroCHLOROthiazide 12.5 mg / losartan potassium 100 mg oral tablet (1 source) Thiazide Diuretic, Angiotensin 2 Receptor Adelaida take 1 tablet by mouth once daily Losartan-Hydroch lorothiazide 100-12.5 mg ORAL per tablet Take 1 tablet by mouth once daily. 0 Active Comment on above: Take 1 tablet by mahad once daily. 1 ml ketorolac tromethamine 30 mg/ml injection (1 source) Nonsteroidal Anti-inflammatory Drug, Cyclooxygenase Inhibitor Start: 03-23-2024 End: 03-23-2024 inject 30 mg by intramuscular injection once 30 mg, intramuscular, Once, On Fri03/23/24 at 2230, For 1 dose labetalol hydrochloride 200 mg oral tablet (1 source) beta-Adrenergic Adelaida take 1 tablet by mouth twice daily labetalol (TRANDATE) 200 mg ORAL tablet Take 200 mg by mouth twice daily. 0 Active Comment on above: Take 200 mg by mouth twice daily. nabumetone 500 mg oral tablet (1 source) Nonsteroidal Anti-inflammatory Drug Start: 02-22-2011 nabumetone 500 mg ORAL tablet Take 1 tablet by mouth twice daily with meals. Take for 2 weeks and take 7 days off medicine before restarting. 60 tablet 1 02/22/2011 Active Comment on above: Take 1 tablet by mahad twice daily with meals. Take for 2 weeks and take 7 days off medicine before restarting. ondansetron 4 mg disintegrating oral tablet (7 sources) Serotonin-3 Receptor Antagonist Start: 06-24-2023 End: 02-07-2025 take 1 tablet by mouth every six hours as needed for nausea and vomiting Ondansetron 4 mg tablet,disintegr ating Discontinued 4 mg PO EVERY 6 HOURS as needed for nausea and vomiting June 24, 2023 12:00am February 07, 2025 1:54pm perflutren lipid microspheres (Definity) injection 2 mL (2 sources) Start: 07-28-2023 End: 07-28-2023 perflutren lipid microspheres (Definity) injection 2 mL Problems Active Problems Problem Classification Problem Date Documented Date Episodic/Chronic Cardiac dysrhythmias (4 sources) Multiple premature ventricular complexes; Translations: [Ventricular premature depolarization] Onset: 10-26-2024 10-26-2024 Chronic Coronary atherosclerosis and other heart disease (20 sources) Acute coronary thrombosis not resulting in myocardial infarction; Translations: [Acute coronary occlusion without myocardial infarction] Onset: 10-16-2023 10-16-2023 Chronic Disorders of lipid metabolism (5 sources) Mixed hyperlipidemia; Translations: [Mixed hyperlipidemia] Onset: 07-29-2024 07-29-2024 Chronic Essential hypertension (20 sources) Hypertensive disorder; Translations: [Unspecified essential hypertension] Onset: 02-13-2023 02-13-2023 Chronic Genitourinary symptoms and ill-defined conditions (1 source) Dysuria; Translations: [Dysuria] 06-18-2023 Episodic Glaucoma (19 sources) Ocular hypertension, unspecified eye; Translations: [Ocular hypertension] Onset: 07-08-2014 07-08-2014 Chronic Inflammation; infection of eye (except that caused by tuberculosis or sexually transmitteddisease) (19 sources) Superficial punctate keratitis; Translations: [Punctate keratitis, unspecified eye] Onset: 07-08-2014 07-08-2014 Chronic Nausea and vomiting (7 sources) Nausea; Translations: [Nausea] 09-19-2023 Episodic Other connective tissue disease (1 source) Muscle spasm of cervical muscle of neck; Translations: [Other muscle spasm] 03-23-2024 Episodic Other connective tissue disease (2 sources) Other muscle spasm; Translations: [Other muscle spasm] Onset: 03-23-2024 Episodic Other connective tissue disease (6 sources) Plantar fasciitis of left foot; Translations: [Plantar fascial fibromatosis] 03-24-2025 Episodic Other connective tissue disease (4 sources) Heel pain; Translations: [Pain in left foot] 04-13-2025 Episodic Other connective tissue disease (1 source) Achilles tendinitis, left leg; Translations: [Achilles tendinitis, left leg] Onset: 06-14-2025 Episodic Other connective tissue disease (1 source) Pain in left foot; Translations: [Pain in left foot] Onset: 04-19-2025 Episodic Other connective tissue disease (1 source) Plantar fascial fibromatosis; Translations: [Plantar fascial fibromatosis] Onset: 03-24-2025 Episodic Other inflammatory condition of skin (1 source) Seborrheic dermatitis; Translations: [Seborrheic dermatitis, unspecified] 02-13-2023 Episodic Other injuries and conditions due to external causes (10 sources) Post-traumatic wound infection; Translations: [Other injury of unspecified body region, initial encounter] 06-09-2022 Episodic Other lower respiratory disease (8 sources) Dyspnea on exertion; Translations: [Other forms of dyspnea] 06-24-2023 Episodic Other non-traumatic joint disorders (7 sources) Pain in left knee; Translations: [Pain in lateral portion of left knee] Onset: 03-24-2025 03-24-2025 Episodic Other nutritional; endocrine; and metabolic disorders (5 sources) Morbid obesity; Translations: [Morbid (severe) obesity due to excess calories] Onset: 01-15-2024 01-15-2024 Chronic Other screening for suspected conditions (not mental disorders or infectious disease) (5 sources) Patient encounter status; Translations: [Screening for diabetes mellitus] Resolved: 11-27-2022 06-18-2023 Episodic Otitis media and related conditions (1 source) Dysfunction of left eustachian tube; Translations: [Other specified disorders of Eustachian tube, left ear] 02-13-2023 Episodic Peripheral and visceral atherosclerosis (19 sources) Arteriosclerotic vascular disease; Translations: [Unspecified atherosclerosis] Onset: 09-09-2023 09-09-2023 Chronic Unclassified (1 source) Pain of left heel Unclassified (2 sources) M79.672 - Pain in left foot Urinary tract infections (1 source) Acute cystitis; Translations: [Acute cystitis with hematuria] 06-18-2023 Episodic Past or Other Problems Problem Classification Problem Date Documented Date Episodic/Chronic Coronary atherosclerosis and other heart disease (2 sources) Presence of coronary angioplasty implant and graft; Translations: [Presence of coronary angioplasty implant and graft] Onset: 10-26-2024 Episodic Inflammation; infection of eye (except that caused by tuberculosis or sexually transmitteddisease) (20 sources) Blepharoconjunctiviti s; Translations: [Unspecified blepharoconjunctiviti s, unspecified eye] Onset: 07-08-2014 07-08-2014 Episodic Mood disorders (4 sources) Mood disorders Onset: 10-31-2023 10-31-2023 Nonspecific chest pain (3 sources) Chest pain; Translations: [Chest pain, unspecified] Onset: 10-16-2023 10-16-2023 Episodic Open wounds of extremities (20 sources) Laceration of heel; Translations: [Open wound of foot except toe(s) alone, without mention of complication] Onset: 07-08-2023 Resolved: 11-27-2022 07-08-2023 Episodic Other circulatory disease (5 sources) H/O: hypertension; Translations: [Personal history of other diseases of circulatory system] Resolved: 08-22-2021 Episodic Other connective tissue disease (1 source) Weakness of left leg; Translations: [Other symptoms and signs involving the musculoskeletal system] Onset: 02-11-2011 02-11-2011 Episodic Other lower respiratory disease (19 sources) Dyspnea; Translations: [Shortness of breath] Onset: 07-17-2023 06-24-2023 Episodic Other lower respiratory disease (2 sources) Dyspnea, unspecified; Translations: [Dyspnea, unspecified] Onset: 07-28-2023 Episodic Other lower respiratory disease (2 sources) Shortness of breath; Translations: [Shortness of breath] Onset: 07-17-2023 Episodic Spondylosis; intervertebral disc disorders; other back problems (20 sources) Lumbosacral neuritis; Translations: [Radiculopathy, lumbosacral region] Onset: 02-11-2011 02-11-2011 Episodic Unclassified (20 sources) Onset: 06-18-2023 Resolved: 10-26-2024 06-18-2023 Results Test Name Value Interpretation Reference Range Facility Foot min 3 Viewson 5 Foot min 3 Views [facility] Imaging Services [address] [place] [address] Foot min 3 Views MR#: [id number] Acct: [id number] Name: SHANNA GARCIA Rep #: [id number] : 1955 F 69 From: Ian Cordon MD PCP: Dr. Timothy Jade MD Status: REG CLI Study: Foot min 3 Views Date of Exam: 04/13/25 Exam# [id number] Ordering Dr: Timothy Jade MD EXAM: XR Left Foot Complete, 3 or More Views CLINICAL INDICATION: LEFT HEEL PAIN TECHNIQUE: Frontal, lateral and oblique views of the left foot. COMPARISON: No relevant prior studies available. FINDINGS: BONES/JOINTS: Mild degenerative change of the intertarsal joints. No acute fracture. No dislocation. SOFT TISSUES: Soft tissue swelling. No radiopaque foreign body. RAD/Foot min 3 Views IMPRESSION: 1. Soft tissue swelling. 2. Degenerative changes as above. Reading Location: [facility] CC: Dr. Timothy Jade MD Sanitarian Inspector: Signed Normal [facility] Internal Medicine Office Vis iton 04-13-2025 Internal Medicine Office Visit [facility] [address] [place] [address] OFFICE VISIT Date of Service: 04/13/25 MR#: [id number] Acct: [id number] Name: SHANNA GARCIA Rep #: [id number] : 1955 Provider: Dr. Timothy soto MD Age/Sex: 69/F Location: [facility] Status: Signed Intake Vital Signs 03/24/25 10:59 04/13/25 08:59 Height 5 ft 2 in 5 ft 2 in Weight: 202 lb 199 lb BMI 36.9 36.3 BP 122/66 H 116/80 Blood Pressure Location Lt brachial Lt brachial Position Sitting Sitting Respiration 18 18 Pulse 96 68 Pulse Source Monitor Monitor Temp 97.6 F L 98.7 F Temp Source Temporal Temporal Pulse Oximetry (%) 95 97 Oxygen Delivery Method room air room air Intake Visit Reasons: FOOT PAIN- WANTS XRAY Chief Complaint: LEFT FOOT PAIN Marine Electrician Required: No Is patient in pain?: Yes (L heel) Pain scale (1-10): 7 Allergies peanut Allergy (Intermediate, Verified 04/13/25 08:46) Shortness of breath Penicillins Allergy (Verified 04/13/25 08:46) Hives Opioids - Morphine Analogues Adverse Reaction (Severe, Verified 04/13/25 08:46) gi upset Medications ???Medication ???Instructions ???Recorded ???Confirmed ???Type amlodipine 5 mg tablet 5 mg PO QDAY 02/07/25 04/13/25 His tory aspirin 81 mg tablet,delayed 81 mg PO QDAY 02/07/25 04/13/25 Hi story release (Adult Low Dose Aspirin) atorvastatin 40 mg tablet mg PO 02/07/25 04/13/25 History clopidogrel 75 mg tablet 75 mg PO QDAY 02/07/25 04/13/25 Hi story lisinopril 20 1 tab PO QDAY 02/07/25 04/13/25 Hi story mg-hydrochlorothiazide 12.5 mg tablet Have you fallen in the past year?: No Nurse's Note: Pt was seen by lelia on 03/24/25. Discussed heel pain. Pt was doing the swimming pool exercises, ibuprofen and Tylenol, pt tried the water bottle and states that made it worse. Pt also had left over 7 day course of prednisone which helped. Once she stopped it the pain came back worse than before. Pt finished last dose about a week and a half ago. L heel is still affected. Pt states having shoe on makes her pain 7/10. Pt states that when shoe is off it is a 9/10, and when laying in bed she sometimes feels pins in the heel. Pt denies redness, or swelling, pt denies radiating pain, Pt describes pain as achey when no weight is put on it. When weight is put on it it is sharp. Pt also tried losing weight to see if that would help. [facility] Medical History (Updated 04/13/25 @ 09:[address] Timothy Jade MD) Pain of left heel Chronic back pain Health care maintenance Coronary artery disease Heart disease Goiter Cardiomegaly HTN (hypertension) Renal failure Surgical History H/O heart artery stent Previous back surgery H/O lithotripsy S/P thyroidectomy H/O section S/P appendectomy Family History Father Diabetes Myocardial infarction Hypertension Kidney disease CVA (cerebral vascular accident) Social History adopted: No household members: spouse number of children: 2 current occupational status: retired pets and animals: Yes (1) pets and animals: dog(s) sexually active: Yes Smoking Status: Never smoker alcohol intake: never substance use type: does not use caffeine: Yes (1) Type: coffee what type of physical activity do you participate in: walking frequency: daily do you feel safe at home: Yes HPI HPI Chief Complaint: LEFT FOOT PAIN Details: SHANNA GARCIA, is a 69-year-old female presenting with heel pain. The pain is localized to the left heel and has been persistent since her last visit three weeks ago. She reports that the pain is exacerbated when barefoot and feels like walking on glass. The patient attempted self-treatment with prednisone, which provided temporary relief, but the pain returned upon cessation of the medication. She has also invested in supportive footwear as advised, but the pain persists, particularly worsening as the day progresses. The patient has a history of a significant cut on the same foot last summer, which was managed at home with cleaning and a tetanus shot. Attestation: Documentation on this patient encounter was supported using ambient scribe technology/ voice AI technology. The patient consented to recording for the purpose of documenting the encounter. Provider reviewed content of the generated note prior to signature. ROS Const Constitutional: No body ache, chills, excessive sweating, fatigue, fever(s), frequent falls, headache(s), snoring, weakness, sleep problems or change in appetite Eyes Eyes: No blurry vision, change in vision, vision loss, dry eyes, eye pain or Light sensitivity ENT ENT: N (more content not included)... Normal [facility] Internal Medicine Office Vis iton 03-24-2025 Internal Medicine Office Visit [facility] [address] [place], [place] [address] OFFICE VISIT Date of Service: 03/24/25 MR#: [id number] Acct: [id number] Name: SHANNA GARCIA Rep #: [id number] : 1955 Provider: ERIC garcia Age/Sex: 69/F Location: [facility] Status: Signed Intake Vital Signs 02/07/25 14:13 03/24/25 10:59 Height 5 ft 2 in 5 ft 2 in Weight: 199 lb 202 lb BMI 36.3 36.9 BP 112/80 122/66 H Blood Pressure Location Lt brachial Lt brachial Position Sitting Sitting Respiration 16 18 Pulse 79 96 Pulse Source Monitor Monitor Temp 97.8 F 97.6 F L Temp Source Temporal Temporal Pulse Oximetry (%) 98 95 Oxygen Delivery Method room air room air Intake Visit Reasons: ACUTE KNEE AND FOOT PAIN Chief Complaint: ACUTE KNEE AND FOOT PAIN Is patient in pain?: Yes (7 left foot in the arch, knee is achy ) Allergies peanut Allergy (Intermediate, Verified 03/24/25 11:00) Shortness of breath Penicillins Allergy (Verified 03/24/25 11:00) Hives Opioids - Morphine Analogues Adverse Reaction (Severe, Verified 03/24/25 11:00) gi upset Medications ???Medication ???Instructions ???Recorded ???Confirmed ???Type amlodipine 5 mg tablet 5 mg PO QDAY 02/07/25 03/24/25 His tory aspirin 81 mg tablet,delayed 81 mg PO QDAY 02/07/25 03/24/25 Hi story release (Adult Low Dose Aspirin) atorvastatin 40 mg tablet mg PO 02/07/25 03/24/25 History clopidogrel 75 mg tablet 75 mg PO QDAY 02/07/25 03/24/25 Hi story lisinopril 20 1 tab PO QDAY 02/07/25 03/24/25 Hi story mg-hydrochlorothiazide 12.5 mg tablet Have you fallen in the past year?: No PFSH Medical History Chronic back pain Health care maintenance Coronary artery disease Heart disease Goiter Cardiomegaly HTN (hypertension) Renal failure Surgical History H/O heart artery stent Previous back surgery H/O lithotripsy S/P thyroidectomy H/O section S/P appendectomy Family History Father Diabetes Myocardial infarction Hypertension Kidney disease CVA (cerebral vascular accident) Social History adopted: No household members: spouse number of children: 2 current occupational status: retired pets and animals: Yes (1) pets and animals: dog(s) sexually active: Yes Smoking Status: Never smoker alcohol intake: never substance use type: does not use caffeine: Yes (1) Type: coffee what type of physical activity do you participate in: walking frequency: daily do you feel safe at home: Yes HPI HPI Chief Complaint: ACUTE KNEE AND FOOT PAIN Details: SHANNA GARCIA, is a 69 F who presents to the office today for left knee and left foot and ankle pain. States left knee pain started about 3 months ago but resolved with rest. States after working outside in her yard with mowing and pulling weeds she noticed about 3 days ago that the left knee began to hurt again and her left foot and ankle into her arch started to hurt. She rates the pain as a 7 out of 10 on the pain scale. Pain is worse on the foot with any standing or walking. Pain is relieved with rest and Tylenol and ibuprofen. Patient denies any known injury states she has not had this pain in the foot and ankle before. ROS Const Constitutional: No body ache, chills, excessive sweating, fatigue, fever(s), frequent falls, headache(s), snoring, weight change, sleep problems, abnormal sleep pattern or change in appetite Eyes Eyes: No blurry vision, change in vision, eye pain or Light sensitivity ENT ENT: No abnormal hearing, ear or mastoid pain, tinnitus, nasal congestion, headache(s), neck pain or sore throat Resp Respiratory: No cough, shortness of breath, snoring or wheezing Cardio Cardiology: No chest pain at rest, chest pain with exertion, excessive sweating, shortness of breath, dyspnea on exertion, lightheadedness, orthopnea or palpitations Gastro GI: No abdominal pain, change in bowel habits, constipation, cramping, diarrhea, nausea/dyspepsia or vomiting Genitourinary-Female: No burning urination, painful urination, urinary incontinence, urinary frequency, abnormal vaginal bleeding or pelvic pain Musc Musculoskeletal: Positive for joint pain, stiffness and other (pain on bottom of foot); No abnormal gait, back pain, limited range of motion, neck pain, numbness or tingling Skin Skin: No dry skin, redness, lesions, itchy eyes, rash or wounds Neuro Neurology: No abnormal gait, abnormal hearing, frequent falls, headache(s), memory loss, numbness or tingling Psych Psychiatric: No abnormal sleep pattern, No anxiety, No change in appetite, No irritability, No zheng (more content not included)... Normal [facility] Absolute lymphocyte countOrd ered By: Timothy Jade on 02-07-2025 Lymphocytes Auto (Unsp spec) [#/Vol] 1.40 10*3/uL 0.83-4.51 [facility] Absolute neutrophil countOrd ered By: Timothy Jade on 02-07-2025 Neutrophils (Bld) [#/Vol] 5.9 10*3/uL 2.0-7.7 [facility] Anion gap in Serum or Plasma Ordered By: Timothy Jade on 02-07-2025 Anion gap [Moles/Vol] 12 mmol/L 5-15 [facility] Automated lymphocyte count a s percentage of total leukocytesOrdered By: Timothy Jade on 02-07-2025 Lymphocytes/100 WBC Auto (Unsp spec) 16.5 % Low 19-41 [facility] BUN/creatinine ratioOrdered By: Timothy Jade on 02-07-2025 Urea nitrogen/Creatinine [Mass ratio] 16.3 mg/mg 10-20 [facility] Basophil percentageOrdered B y: Timothy Jade on 02-07-2025 Basophils/100 WBC (Bld) 0.5 % 0-1 [facility] Bilirubin, totalOrdered By: Timothy Jade on 02-07-2025 Bilirubin [Mass/Vol] 0.62 mg/dL 0.00-1.30 [facility] CBC W/Diff, Automatedon Absolute Lymph 1.40 X10 3/uL Normal 0.83-4.51 [facility] Comment on above: Performed By: #### L 500.4050, L100.0100, L500.4100 #### [facility] [address] [place], [address] Absolute Neut 5.9 X10 3/uL Normal 2.0-7.7 [facility] Comment on above: Performed By: #### L 500.4050, L100.0100, L500.4100 #### [facility] [address] [place], [address] Basophils/100 WBC (Bld) 0.5 % Normal 0-1 [facility] Comment on above: Performed By: #### L 500.4050, L100.0100, L500.4100 #### [facility] [address] [place], [address] Eosinophils/100 WBC (Bld) 5.9 % High 0-5 [facility] Comment on above: Performed By: #### L 500.4050, L100.0100, L500.4100 #### [facility] [address] [place], [address] Erythrocyte distribution width (RBC) [Ratio] 13.2 % Normal 11.6-14.6 [facility] Comment on above: Performed By: #### L 500.4050, L100.0100, L500.4100 #### [facility] [address] [place], [address] Hematocrit (Bld) [Volume fraction] 42.4 % Normal 37-47 [facility] Comment on above: Performed By: #### L 500.4050, L100.0100, L500.4100 #### [facility] [address] [place], [address] Hemoglobin (Bld) [Mass/Vol] 13.9 g/dL Normal 12.0-15.0 [facility] Comment on above: Performed By: #### L 500.4050, L100.0100, L500.4100 #### [facility] [address] [place], [address] IG% 0.400 Normal 0.0-0.9 [facility] Comment on above: Result Comment: IG% - Immature Granulocytes (promyelocytes, myelocytes and metamyelocytes) > 1% indicates that a LEFT SHIFT is Present. Performed By: #### L 500.4050, L100.0100, L500.4100 #### [facility] [address] [place], [address] Lymphocytes/100 WBC (Bld) 16.5 % Low 19-41 [facility] Comment on above: Performed By: #### L 500.4050, L100.0100, L500.4100 #### [facility] [address] [place], [address] MCH (RBC) [Entitic mass] 29.0 pg Normal 27.0-32.0 [facility] Comment on above: Performed By: #### L 500.4050, L100.0100, L500.4100 #### [facility] [address] [place], [address] MCHC (RBC) [Mass/Vol] 32.8 g/dL Normal 32-36 [facility] Comment on above: Performed By: #### L 500.4050, L100.0100, L500.4100 #### [facility] [address] [place], [address] MCV (RBC) [Entitic vol] 88.5 fL Normal 81-99 [facility] Comment on above: Performed By: #### L 500.4050, L100.0100, L500.4100 #### [facility] [address] [place], [address] Monocytes/100 WBC (Bld) 6.8 % Normal 0-10 [facility] Comment on above: Performed By: #### L 500.4050, L100.0100, L500.4100 #### [facility] [address] [place], [address] Neutrophils/100 WBC (Bld) 69.9 % Normal 47-70 [facility] Comment on above: Performed By: #### L 500.4050, L100.0100, L500.4100 #### [facility] [address] [place], [address] Nucleated RBC (Bld) [#/Vol] 0 10*3/uL Normal 0-5 [facility] Comment on above: Performed By: #### L 500.4050, L100.0100, L500.4100 #### [facility] [address] [place], [address] Platelet mean volume (Bld) [Entitic vol] 10.5 fL Normal 6.2-12.0 [facility] Comment on above: Performed By: #### L 500.4050, L100.0100, L500.4100 #### [facility] [address] [place], [address] Platelets (Bld) [#/Vol] 284 10*3/uL Normal 150-450 [facility] Comment on above: Performed By: #### L 500.4050, L100.0100, L500.4100 #### [facility] [address] [place], [address] RBC (Bld) [#/Vol] 4.79 10*6/uL Normal 4.2-5.4 [facility] Comment on above: Performed By: #### L 500.4050, L100.0100, L500.4100 #### [facility] [address] [place], [address] RDW SD 42.6 fl Normal 35.1-43.9 [facility] Comment on above: Performed By: #### L 500.4050, L100.0100, L500.4100 #### [facility] [address] [place], [address] WBC (Bld) [#/Vol] 8.5 10*3/uL Normal 4.4-11.0 [facility] Comment on above: Performed By: #### L 500.4050, L100.0100, L500.4100 #### [facility] [address] [place], [address] Calculated very low density lipoprotein (VLDL) cholesterol measurementOrdered By: Timothy Jade on 02-07-2025 Calculated very low density lipoprotein (VLDL) cholesterol measurement 22 mg/dL 5-40 [facility] Carbon dioxide, total [Moles /volume] in Central venous bloodOrdered By: Timothy Jade on 02-07-2025 CO2 [Moles/Vol] 26.9 mmol/L 21.0-32.0 [facility] Chloride assayOrdered By: Larisa Jade on 02-07-2025 Chloride [Moles/Vol] 100 mmol/L 98-108 [facility] Comprehensive Metabolic Prof ilon 02-07-2025 Albumin [Mass/Vol] 4.4 g/dL Normal 3.4-4.8 [facility] Comment on above: Performed By: #### L 500.4050, L100.0100, L500.4100 #### [facility] [address] [place], [address] Albumin/Globulin [Mass ratio] 1.7 {ratio} Normal 0.9-2.4 [facility] Comment on above: Performed By: #### L 500.4050, L100.0100, L500.4100 #### [facility] [address] [place], [address] ALK PHOS 141 U/L High 35-104 [facility] Comment on above: Performed By: #### L 500.4050, L100.0100, L500.4100 #### [facility] [address] [place], [address] ALT [Catalytic activity/Vol] 20 U/L Normal <=34 [facility] Comment on above: Performed By: #### L 500.4050, L100.0100, L500.4100 #### [facility] [address] [place], [address] AST [Catalytic activity/Vol] 21 U/L Normal <=31 [facility] Comment on above: Performed By: #### L 500.4050, L100.0100, L500.4100 #### [facility] [address] [place], [address] Bilirubin [Mass/Vol] 0.62 mg/dL Normal 0.00-1.30 [facility] Comment on above: Performed By: #### L 500.4050, L100.0100, L500.4100 #### [facility] [address] [place], [address] BUN/CRE 16.3 RATIO Normal 10-20 [facility] Comment on above: Performed By: #### L 500.4050, L100.0100, L500.4100 #### [facility] [address] [place], [address] Calcium [Mass/Vol] 9.8 mg/dL Normal 7.6-11.0 [facility] Comment on above: Performed By: #### L 500.4050, L100.0100, L500.4100 #### [facility] [address] [place], [address] Chloride [Moles/Vol] 100 mmol/L Normal 98-108 [facility] Comment on above: Performed By: #### L 500.4050, L100.0100, L500.4100 #### [facility] [address] [place], [address] CO2 [Moles/Vol] 26.9 mmol/L Normal 21.0-32.0 [facility] Comment on above: Performed By: #### L 500.4050, L100.0100, L500.4100 #### [facility] [address] [place], [address] Creatinine [Mass/Vol] 1.01 mg/dL Normal 0.70-1.20 [facility] Comment on above: Performed By: #### L 500.4050, L100.0100, L500.4100 #### [facility] [address] [place], [address] GAP 12 Normal 5-15 [facility] Comment on above: Performed By: #### L 500.4050, L100.0100, L500.4100 #### [facility] [address] [place], [address] GFR/1.73 sq M.predicted among non-blacks MDRD (S/P/Bld) [Vol rate/Area] 61 mL/min/{1.73_m2} Normal >60 [facility] Comment on above: Result Comment: mL/m in/1.73m2 CKD-EPI Creatinine Equation (2020) Performed By: #### L 500.4050, L100.0100, L500.4100 #### [facility] [address] [place], [address] Globulin (S) [Mass/Vol] 2.6 g/dL Normal 2.2-4.2 [facility] Comment on above: Performed By: #### L 500.4050, L100.0100, L500.4100 #### [facility] [address] [place], [address] Glucose [Mass/Vol] 102 mg/dL High 70-99 [facility] Comment on above: Performed By: #### L 500.4050, L100.0100, L500.4100 #### [facility] [address] [place], [address] Potassium [Moles/Vol] 4.4 mmol/L Normal 3.3-5.1 [facility] Comment on above: Performed By: #### L 500.4050, L100.0100, L500.4100 #### [facility] [address] [place], [address] Sodium [Moles/Vol] 139 mmol/L Normal 133-145 [facility] Comment on above: Performed By: #### L 500.4050, L100.0100, L500.4100 #### [facility] [address] [place], [address] T PROT 7.0 g/dL Normal 5.9-8.4 [facility] Comment on above: Performed By: #### L 500.4050, L100.0100, L500.4100 #### [facility] [address] [place], [address] Urea nitrogen [Mass/Vol] 17 mg/dL Normal 4-19 [facility] Comment on above: Performed By: #### L 500.4050, L100.0100, L500.4100 #### [facility] [address] [place], [address] Eosinophil percentageOrdered By: Timothy Jade on 02-07-2025 Eosinophils/100 WBC (Bld) 5.9 % High 0-5 [facility] Erythrocyte distribution wid th ratioOrdered By: bert Jade on 02-07-2025 Erythrocyte distribution width (RBC) [Ratio] 13.2 % 11.6-14.6 [facility] Erythrocyte distribution wid th standard deviationOrdered By: [facility] Centerstephon Damicoemily on 02-07-2025 Erythrocyte distribution width (RBC) [Ratio] 42.6 fl 35.1-43.9 [facility] Glomerular filtration rate ( GFR) estimation/1.73 sq m using serum, plasma, or whole bOrdered By: tomwater valleystephon Jade on 02-07-2025 GFR/1.73 sq M.predicted among non-blacks MDRD (S/P/Bld) [Vol rate/Area] 61 mL/min/{1.73_m2} >60 [facility] Comment on above: mL/min/1.73m2 CKD-EP I Creatinine Equation (2020) Hematocrit Auto (Bld) [Volum e fraction]Ordered By: Timothy Jade on 02-07-2025 Hematocrit (Bld) [Volume fraction] 42.4 % 37-47 [facility] Hemoglobin measurementOrdere d By: Timothy Jade on 02-07-2025 Hemoglobin (Bld) [Mass/Vol] 13.9 g/dL 12.0-15.0 [facility] Immature granulocytes/100 WB C Auto (Bld)Ordered By: bert Jade on 02-07-2025 Immature granulocytes/100 WBC (Bld) 0.400 % 0.0-0.9 [facility] Comment on above: IG% - Immature Granu locytes (promyelocytes, myelocytes and metamyelocytes) > 1% indicates that a LEFT SHIFT is Present. Internal Medicine Office Vis martinez 02-07-2025 Internal Medicine Office Visit [facility] [address] [place] [address] OFFICE VISIT Date of Service: 02/07/25 MR#: [id number] Acct: [id number] Name: RADHASHANNA A Rep #: [id number] : 1955 Provider: Dr. Timothy soto MD Age/Sex: 69/F Location: [facility] Status: Signed Intake Vital Signs 06/26/23 11:10 02/07/25 14:13 Height 5 ft 2 in 5 ft 2 in Weight: 199 lb BMI 36.3 BP 112/80 Blood Pressure Location Lt brachial Position Sitting Respiration 16 Pulse 79 Pulse Source Monitor Temp 97.8 F Temp Source Temporal Pulse Oximetry (%) 98 Oxygen Delivery Method room air Intake Visit Reasons: EST NEW PT - PPWK SENT Chief Complaint: Establish care Marine Electrician Required: No Accompanied by: Is patient in pain?: No Allergies peanut Allergy (Intermediate, Verified 02/07/25 13:54) Shortness of breath Penicillins Allergy (Verified 06/24/23 19:47) Hives Opioids - Morphine Analogues Adverse Reaction (Severe, Verified 02/07/25 13:54) gi upset Medications ???Medication ???Instructions ???Recorded ???Confirmed ???Type amlodipine 5 mg tablet 5 mg PO QDAY 02/07/25 02/07/25 His tory aspirin 81 mg tablet,delayed 81 mg PO QDAY 02/07/25 02/07/25 Hi story release (Adult Low Dose Aspirin) atorvastatin 40 mg tablet mg PO 02/07/25 02/07/25 History clopidogrel 75 mg tablet 75 mg PO QDAY 02/07/25 02/07/25 Hi story lisinopril 20 1 tab PO QDAY 02/07/25 02/07/25 Hi story mg-hydrochlorothiazide 12.5 mg tablet Have you fallen in the past year?: No Nurse's Note: See's Dr. Jennifer silveira for cardiology Is requesting refills for amlodipine,lisinopril hctz. PFSH Medical History (Updated 02/07/25 @ 15:[address] Timothy Jdae MD) Chronic back pain Health care maintenance Coronary artery disease Heart disease Goiter Cardiomegaly HTN (hypertension) Renal failure Surgical History (Updated 02/07/25 @ 15:[address] Timothy Jade MD) H/O heart artery stent Previous back surgery H/O lithotripsy S/P thyroidectomy H/O section S/P appendectomy Family History (Updated 02/07/25 @ 13:59 by Hilda Hernandez MA) Father Diabetes Myocardial infarction Hypertension Kidney disease CVA (cerebral vascular accident) Social History (Updated 02/07/25 @ 14:13 by Hilda Hernandez MA) adopted: No household members: spouse number of children: 2 current occupational status: retired pets and animals: Yes (1) pets and animals: dog(s) sexually active: Yes Smoking Status: Never smoker alcohol intake: never substance use type: does not use caffeine: Yes (1) Type: coffee what type of physical activity do you participate in: walking frequency: daily do you feel safe at home: Yes HPI HPI Chief Complaint: Establish care Details: SHANNA GARCIA, is a 69 F who presents to the office today to establish care. No acute concerns at this time. History of hypertension, blood pressure today at 112/80 mmHg. Currently on lisinopril hydrochlorothiazide and amlodipine which she reports compliance with. No chest pain, palpitation or shortness of breath. Also history of CAD status post stent, follows up with cardiology in [place]. Currently on atorvastatin and baby aspirin. She denies chest pain. Feels well. Not up-to-date on age-appropriate screenings however, she states that she would like to hold off until she has paid off her 's medical bills. Would like to readdress this at her next visit in 6 months. ROS Const Constitutional: No body ache, chills, excessive sweating, fatigue, fever(s), frequent falls, headache(s), snoring, weakness, sleep problems or change in appetite Eyes Eyes: No blurry vision, change in vision, bulging eyes, floaters, visual disturbances, eye pain or Light sensitivity ENT ENT: No abnormal hearing, ear or mastoid pain, tinnitus, balance problems, nosebleed/epistaxis, nasal congestion, headache(s), neck pain or sore throat Resp Respiratory: No cough, excessive phlegm production, pain on inspiration, shortness of breath, snoring or wheezing Cardio Cardiology: No chest pain at rest, chest pain with exertion, excessive sweating, shortness of breath, dyspnea on exertion, lightheadedness, orthopnea or palpitations Gastro GI: No abdominal pain, change in bowel habits, constipation, cramping, diarrhea, nausea/dyspepsia or vomiting Genitourinary-Female: No burning urination, painful urination, urinary incontinence, urinary frequency, abnormal vaginal bleeding or pelvic pain Musc Musculoskeletal: No abnormal gait, joint pain, back pain, limited range of motion, neck pain or numbness Skin Skin: No dry skin, redness, excessive hair growth, yellowing of the eye, lesions, itchy eyes, rash or wounds Neuro Neurology: No abnormal ga (more content not included)... Normal [facility] LDL calc ser/plasOrdered By: Timothy Jade on 02-07-2025 Cholesterol in LDL [Mass/Vol] 77 mg/dL [facility] Comment on above: Svvdkjsilx=329-172 m g/dL & Higher Ncav=257 mg/dL or greater Laboratory - Chemistry and C hemistry - challengeOrdered By: Timothy Jade on 02-07-2025 AST [Catalytic activity/Vol] 21 U/L <32 [facility] Lipid Profileon 02-07-2025 CHOL:HDL 3.88 Normal [facility] Comment on above: Performed By: #### L 500.4050, L100.0100, L500.4100 #### [facility] [address] [place], [place], [id number] Cholesterol [Mass/Vol] 133 mg/dL Normal <=200 [facility] Comment on above: Result Comment: Chol esterol level, Desirable <200 mg/dL Borderline high cholesterol 200-239 mg/dL High cholesterol >=240 mg/dL Recommendations of the NCEP Adult Treatment Panel for the following risk-cutoff thresholds for the [place] population. Performed By: #### L 500.4050, L100.0100, L500.4100 #### [facility] [address] [place], [place], [id number] Cholesterol in HDL [Mass/Vol] 34 mg/dL Low [facility] Comment on above: Result Comment: [place] on[place] Cholesterol Education Program (NCEP) guidelines: <40 mg/dL: Low HDL-cholesterol (major risk factor for CHD) >= 60 mg/dL: High HDL-cholesterol (negative risk factor for CHD) HDL-cholesterol is affected by a number of factors, e.g. smoking, exercise, hormones, sex and age. Performed By: #### L 500.4050, L100.0100, L500.4100 #### [facility] [address] [place], [address] Cholesterol in LDL [Mass/Vol] 77 mg/dL Normal [facility] Comment on above: Result Comment: Bord ufqnfc=116-775 mg/dL Higher Ubpg=659 mg/dL or greater Performed By: #### L 500.4050, L100.0100, L500.4100 #### [facility] [address] [place], [address] Cholesterol in VLDL [Mass/Vol] 22 mg/dL Normal 5-40 [facility] Comment on above: Performed By: #### L 500.4050, L100.0100, L500.4100 #### [facility] [address] [place], [address] Triglyceride [Mass/Vol] 108 mg/dL Normal [facility] Comment on above: Result Comment: The drugs N-Acetylcysteine and Metamizole may falsely depress this assay. Normal range: <150 mg/dL Borderline High: 150-199 mg/dL High: 200-499 mg/dL Very High: >500 mg/dL Performed By: #### L 500.4050, L100.0100, L500.4100 #### [facility] [address] [place], [address] MCV (mean corpuscular volume ) determinationOrdered By: Timothy Jade on 02-07-2025 MCV (RBC) [Entitic vol] 88.5 fL 81-99 [facility] Mean corpuscular hemoglobin (MCH) determinationOrdered By: Timothy Jade on 02-07-2025 MCH (RBC) [Entitic mass] 29.0 pg 27.0-32.0 [facility] Mean corpuscular hemoglobin concentration (MCHC) determinationOrdered By: Timothy Jade on 02-07-2025 MCHC (RBC) [Mass/Vol] 32.8 g/dL 32-36 [facility] Mean platelet volume determi nationOrdered By: Timothy Jade on 02-07-2025 Platelet mean volume (Bld) [Entitic vol] 10.5 fL 6.2-12.0 [facility] Monocyte percentageOrdered B y: Timothy Jade on 02-07-2025 Monocytes/100 WBC (Bld) 6.8 % 0-10 [facility] Neutrophil percentageOrdered By: Timothy Jade on 02-07-2025 Neutrophils/100 WBC (Bld) 69.9 % 47-70 [facility] Nucleated red blood cell per centageOrdered By: Timothy Jade on 02-07-2025 Nucleated RBC/100 WBC (Bld) [Ratio] 0 % 0-5 [facility] Platelet countOrdered By: Larisa Jade on 02-07-2025 Platelets (Bld) [#/Vol] 284 10*3/uL 150-450 [facility] Potassium measurement (mass/ volume)Ordered By: Timothy Jade on 02-07-2025 Potassium (Unsp spec) [Mass/Vol] 4.4 mmol/L 3.3-5.1 [facility] RBC Auto (Bld) [#/Vol]Ordere d By: Timothy Jade on 02-07-2025 RBC (Bld) [#/Vol] 4.79 10*6/uL 4.2-5.4 [facility] Screening total cholesterol/ high density lipoprotein (HDL) cholesterol ratioOrdered By: Timothy Jade on 02-07-2025 Cholesterol.total/Cho lesterol in HDL [Mass ratio] 3.88 {ratio} [facility] Serum creatinine measurement (mass/volume)Ordered By: Timothy Jade on 02-07-2025 Creatinine [Mass/Vol] 1.01 mg/dL 0.70-1.20 [facility] Serum globulin measurementOr dered By: Timothy Jade on 02-07-2025 Globulin (S) [Mass/Vol] 2.6 g/dL 2.2-4.2 [facility] Serum glucose measurement (m ass/volume)Ordered By: Timothy Jade on 02-07-2025 Glucose [Mass/Vol] 102 mg/dL High 70-99 [facility] Serum or plasma alanine lucero otransferase (ALT) measurementOrdered By: Timothy Jade on 02-07-2025 ALT [Catalytic activity/Vol] 20 U/L <35 [facility] Serum or plasma albumin librado urement (mass/volume)Ordered By: Timothy Jade on 02-07-2025 Albumin [Mass/Vol] 4.4 g/dL 3.4-4.8 [facility] Serum or plasma albumin/glob ulin mass ratioOrdered By: [facility] on 02-07-2025 Albumin/Globulin [Mass ratio] 1.7 {ratio} 0.9-2.4 [facility] Serum or plasma alkaline bri sphatase measurementOrdered By: Timothy Jade 02-07-2025 ALP [Catalytic activity/Vol] 141 U/L High 35-104 [facility] Serum or plasma calcium librado urement (mass/volume)Ordered By: Timothy Jade 02-07-2025 Calcium [Mass/Vol] 9.8 mg/dL 7.6-11.0 [facility] Serum or plasma cholesterol in HDL measurement (mass/volume)Ordered By: Timothy Jade 02-07-2025 Cholesterol in HDL [Mass/Vol] 34 mg/dL Low >40 [facility] Comment on above: National Cholesterol Education Program (NCEP) guidelines:<40 mg/dL: Low HDL-cholesterol (major risk factor for CHD)>= 60 mg/dL: High HDL-cholesterol (negative risk factor for CHD)HDL-cholesterol is affected by a number of factors, e.g. smoking, exercise, hormones, sex and age. Serum or plasma cholesterol measurement (mass/volume)Ordered By: Timothy Jade on 02-07-2025 Cholesterol [Mass/Vol] 133 mg/dL <201 [facility] Comment on above: Cholesterol level, D esirable <200 mg/dLBorderline high cholesterol 200-239 mg/dLHigh cholesterol >=240 mg/dLRecommendations of the NCEP Adult Treatment Panel for the following risk-cutoff thresholds for the [place] population. Serum or plasma urea nitroge n measurement (mass/volume)Ordered By: Timothy Jade on 02-07-2025 Urea nitrogen [Mass/Vol] 17 mg/dL 4-19 [facility] Sodium levelOrdered By: Liliana singletaryeder Yasmany on 02-07-2025 Sodium [Moles/Vol] 139 mmol/L 133-145 [facility] T4 Free Directon 02-07-2025 T4 FREE DIRECT 1.10 ng/dL Normal 0.76-1.46 [facility] Comment on above: Performed By: #### L 501.9520, L506.0400 #### [facility] [address] [place], [place], [id number] T4 freeOrdered By: Timothy Jade on 02-07-2025 Free T4 [Mass/Vol] 1.10 ng/dL 0.76-1.46 [facility] TSH DL <= 0.005 mIU/L QnOrde red By: Timothy Jade on 02-07-2025 TSH Qn 1.320 uIU/mL 0.300-4.200 [facility] Thyroid Stim Hormone (TSH)on 02-07-2025 TSH 1.320 uIU/mL Normal 0.300-4.200 [facility] Comment on above: Performed By: #### L 501.9520, L506.0400 #### [facility] [address] [place], [place], [id number] Total proteinOrdered By: Ruiz franciscastephon Jade on 02-07-2025 Protein [Mass/Vol] 7.0 g/dL 5.9-8.4 [facility] Triglycerides measurementOrd ered By: Timothy Jade on 02-07-2025 Triglyceride [Mass/Vol] 108 mg/dL <199 [facility] Comment on above: The drugs N-Acetylcy steine and Metamizole may falsely depress this assay. Normal range: <150 mg/dLBorderline High: 150-199 mg/dLHigh: 200-499 mg/dLVery High: >500 mg/dL White blood cell (WBC) count Ordered By: Timothy Jade on 02-07-2025 WBC (Bld) [#/Vol] 8.5 10*3/uL 4.4-11.0 [facility] ECG 12 lead (Clinic Performe d)on 10-26-2024 *Please refer to the scanned EKG for the final report* [facility] Work Phone: CARDIAC CATHETERIZATION - CO RONARYon 10-16-2023 CARDIAC CATHETERIZATION - CORONARY [facility] [employer] [address] [place] [address] [phone], Cardiovascular Catheterization Report Patient Name: SHANNA GARCIA Performing Physician: Gustavo Silveira MD Study Date: 10/16/2023 Verifying Physician: Gustavo Silveira MD MRN/PID: [id number] Engineering Analyst: Ordering Provider: Gustavo SILVEIRA Date of /Age: 11 1955 / 68 years Fellow: Gender: F Fellow: Study: PCI - Percutaneous Coronary Intervention Additional Study: Left Heart Cath Additional Study: IVUS - Intravascular Ultrasound Indications: SHANNA GARCIA is a 68 year old female who presents with hypertension, dyslipidemia, obesity and a chest pain assessment of typical angina. Worsening angina. Appropriate Use Criteria: Suspected coronary artery disease, symptomatic with high global risk; AUC score = 7. Stress test performed: Yes. Stress test type: Exercise Stress. Stress result: Indeterminate. CTA performed: No. Agatston accessed: No. LVEF Assessed: Yes. LVEF = 60%. Cardiac arrest: No. Cardiac surgical consult: No. Cardiovascular Instability: No Frailty status of patient entering lab: 7 = Severely frail. Procedure Description: After infiltration with 2% Lidocaine, the right radial artery was cannulated with a modified Seldinger technique. Subsequently a 6 Gibraltarian sheath was placed in the right radial artery. Selective coronary catheterization was performed using a 6 Fr catheter(s) exchanged over a guide wire to cannulate the coronary arteries. Additional catheter(s) used to visualize the coronary arteries were: 6F XB 3.0. Multiple injections of contrast were made into the left and right coronary arteries with angiograms recorded in multiple projections. After completion of the procedure, the arterial sheath was pulled and a TR Band Radial Compression Device was utilized to obtain patent hemostasis. Coronary Angiography: The coronary circulation is left dominant. Left Main Coronary Artery: The left main coronary artery is a normal caliber vessel. The left main arises normally from the left coronary sinus of Valsalva and bifurcates into the LAD and circumflex coronary arteries. The left main coronary artery showed a normal vessel. Left Anterior Descending Coronary Artery Distribution: The left anterior descending coronary artery is a normal caliber vessel. The LAD arises normally from the left main coronary artery. The LAD demonstrated atherosclerotic disease and calcification. The proximal to mid left anterior descending coronary artery showed 90% stenosis. This lesion was diffuse and calcified. The 1st diagonal branch is a small caliber vessel. The 1st diagonal branch showed no significant disease or stenosis greater than 30%. The 2nd diagonal branch is a medium-sized caliber vessel. The 2nd diagonal branch demonstrated no significant disease or stenosis greater than 30%. The 3rd diagonal branch is a small caliber vessel. The 3rd diagonal branch revealed no significant disease or stenosis greater than 30%. Circumflex Coronary Artery Distribution: The circumflex coronary artery is a normal caliber vessel. The circumflex arises normally from the left main coronary artery and terminates in the AV groove. The circumflex revealed no significant disease or stenosis greater than 30%. The 1st obtuse marginal branch is a normal caliber vessel. The 1st obtuse marginal branch showed no significant disease or stenosis greater than 30%. The left posterolateral branch is a normal caliber vessel. The left posterolateral branch showed no significant disease or stenosis greater than 30%. The left posterior descending artery is a normal caliber vessel. The left posterior descending artery showed no significant disease or stenosis greater than 30%. Right Coronary Artery Distribution: The right coronary artery is a normal caliber vessel. The RCA arises normally from the right sinus of Valsalva. The RCA showed no significant disease or stenosis greater than 30%. Coronary Interventions: Angiography reveals a 90% stenosis of the proximal to mid left anterior descending coronary artery. Pre-intervention KENDRA flow was 3. Intravascular Ultrasound (IVUS) was performed on the lesion within the proximal to mid left anterior descending. The plaque seen was predominantly calcific and no thrombus was visualized This lesion was interpreted to be significant. . The minimum lesion lumen diameter was 1.50 mm. Percutaneous coronary intervention was performed within the proximal to mid left anterior descending. The vessel was pre-dilated using a compliant balloon 2.5 mm x 15 mm at 12 OSIRIS. SYNERGY XD Everolimus drug-eluting stent 2.75 mm x 24 mm was advanced to the lesion and implanted at 12 OSIRIS. The stent was post dilated using a non-compliant balloon 3.5 mm x 15 mm at 18 OSIRIS. The stenosis was successfully reduced from 90% to <10 (more content not included)... [facility] Cardiac catheterization stud yon 10-16-2023 [facility] [employer] [address] [place] [address] [phone], Cardiovascular Catheterization Report Patient Name: SHANAN GARCIA Performing Physician: Gustavo Silveira MD Study Date: 10/16/2023 Verifying Physician: Gustavo Silveira MD MRN/PID: [id number] Engineering Analyst: Ordering Provider: Gustavo SILVEIRA Date of /Age: 11 1955 / 68 years Fellow: Gender: F Fellow: Study: PCI - Percutaneous Coronary Intervention Additional Study: Left Heart Cath Additional Study: IVUS - Intravascular Ultrasound Indications: SHANNA GARCIA is a 68 year old female who presents with hypertension, dyslipidemia, obesity and a chest pain assessment of typical angina. Worsening angina. Appropriate Use Criteria: Suspected coronary artery disease, symptomatic with high global risk; AUC score = 7. Stress test performed: Yes. Stress test type: Exercise Stress. Stress result: Indeterminate. CTA performed: No. Agatston accessed: No. LVEF Assessed: Yes. LVEF = 60%. Cardiac arrest: No. Cardiac surgical consult: No. Cardiovascular Instability: No Frailty status of patient entering lab: 7 = Severely frail. Procedure Description: After infiltration with 2% Lidocaine, the right radial artery was cannulated with a modified Seldinger technique. Subsequently a 6 Gibraltarian sheath was placed in the right radial artery. Selective coronary catheterization was performed using a 6 Fr catheter(s) exchanged over a guide wire to cannulate the coronary arteries. Additional catheter(s) used to visualize the coronary arteries were: 6F XB 3.0. Multiple injections of contrast were made into the left and right coronary arteries with angiograms recorded in multiple projections. After completion of the procedure, the arterial sheath was pulled and a TR Band Radial Compression Device was utilized to obtain patent hemostasis. Coronary Angiography: The coronary circulation is left dominant. Left Main Coronary Artery: The left main coronary artery is a normal caliber vessel. The left main arises normally from the left coronary sinus of Valsalva and bifurcates into the LAD and circumflex coronary arteries. The left main coronary artery showed a normal vessel. Left Anterior Descending Coronary Artery Distribution: The left anterior descending coronary artery is a normal caliber vessel. The LAD arises normally from the left main coronary artery. The LAD demonstrated atherosclerotic disease and calcification. The proximal to mid left anterior descending coronary artery showed 90% stenosis. This lesion was diffuse and calcified. The 1st diagonal branch is a small caliber vessel. The 1st diagonal branch showed no significant disease or stenosis greater than 30%. The 2nd diagonal branch is a medium-sized caliber vessel. The 2nd diagonal branch demonstrated no significant disease or stenosis greater than 30%. The 3rd diagonal branch is a small caliber vessel. The 3rd diagonal branch revealed no significant disease or stenosis greater than 30%. Circumflex Coronary Artery Distribution: The circumflex coronary artery is a normal caliber vessel. The circumflex arises normally from the left main coronary artery and terminates in the AV groove. The circumflex revealed no significant disease or stenosis greater than 30%. The 1st obtuse marginal branch is a normal caliber vessel. The 1st obtuse marginal branch showed no significant disease or stenosis greater than 30%. The left posterolateral branch is a normal caliber vessel. The left posterolateral branch showed no significant disease or stenosis greater than 30%. The left posterior descending artery is a normal caliber vessel. The left posterior descending artery showed no significant disease or stenosis greater than 30%. Right Coronary Artery Distribution: The right coronary artery is a normal caliber vessel. The RCA arises normally from the right sinus of Valsalva. The RCA showed no significant disease or stenosis greater than 30%. Coronary Interventions: Angiography reveals a 90% stenosis of the proximal to mid left anterior descending coronary artery. Pre-intervention KENDRA flow was 3. Intravascular Ultrasound (IVUS) was performed on the lesion within the proximal to mid left anterior descending. The plaque seen was predominantly calcific and no thrombus was visualized T (more content not included)... [place] MD - 10/16/2023 [facility] [employer] [address] [place] [address] [phone], Cardiovascular Catheterization Report Patient Name: SHANNA GARCIA Performing Physician: Gustavo Silveira MD Study Date: 10/16/2023 Verifying Physician: Gustavo Silveira MD MRN/PID: [id number] Engineering Analyst: Ordering Provider: Gustavo SILVEIRA Date of /Age: 11 1955 / 68 years Fellow: Gender: F Fellow: Study: PCI - Percutaneous Coronary Intervention Additional Study: Left Heart Cath Additional Study: IVUS - Intravascular Ultrasound Indications: SHANNA GARCIA is a 68 year old female who presents with hypertension, dyslipidemia, obesity and a chest pain assessment of typical angina. Worsening angina. Appropriate Use Criteria: Suspected coronary artery disease, symptomatic with high global risk; AUC score = 7. Stress test performed: Yes. Stress test type: Exercise Stress. Stress result: Indeterminate. CTA performed: No. Yoni accessed: No. LVEF Assessed: Yes. LVEF = 60%. Cardiac arrest: No. Cardiac surgical consult: No. Cardiovascular Instability: No Frailty status of patient entering lab: 7 = Severely frail. Procedure Description: After infiltration with 2% Lidocaine, the right radial artery was cannulated with a modified Seldinger technique. Subsequently a 6 Gibraltarian sheath was placed in the right radial artery. Selective coronary catheterization was performed using a 6 Fr catheter(s) exchanged over a guide wire to cannulate the coronary arteries. Additional catheter(s) used to visualize the coronary arteries were: 6F XB 3.0. Multiple injections of contrast were made into the left and right coronary arteries with angiograms recorded in multiple projections. After completion of the procedure, the arterial sheath was pulled and a TR Band Radial Compression Device was utilized to obtain patent hemostasis. Coronary Angiography: The coronary circulation is left dominant. Left Main Coronary Artery: The left main coronary artery is a normal caliber vessel. The left main arises normally from the left coronary sinus of Valsalva and bifurcates into the LAD and circumflex coronary arteries. The left main coronary artery showed a normal vessel. Left Anterior Descending Coronary Artery Distribution: The left anterior descending coronary artery is a normal caliber vessel. The LAD arises normally from the left main coronary artery. The LAD demonstrated atherosclerotic disease and calcification. The proximal to mid left anterior descending coronary artery showed 90% stenosis. This lesion was diffuse and calcified. The 1st diagonal branch is a small caliber vessel. The 1st diagonal branch showed no significant disease or stenosis greater than 30%. The 2nd diagonal branch is a medium-sized caliber vessel. The 2nd diagonal branch demonstrated no significant disease or stenosis greater than 30%. The 3rd diagonal branch is a small caliber vessel. The 3rd diagonal branch revealed no significant disease or stenosis greater than 30%. Circumflex Coronary Artery Distribution: The circumflex coronary artery is a normal caliber vessel. The circumflex arises normally from the left main coronary artery and terminates in the AV groove. The circumflex revealed no significant disease or stenosis greater than 30%. The 1st obtuse marginal branch is a normal caliber vessel. The 1st obtuse marginal branch showed no significant disease or stenosis greater than 30%. The left posterolateral branch is a normal caliber vessel. The left posterolateral branch showed no significant disease or stenosis greater than 30%. The left posterior descending artery is a normal caliber vessel. The left posterior descending artery showed no significant disease or stenosis greater than 30%. Right Coronary Artery Distribution: The right coronary artery is a normal caliber vessel. The RCA arises normally from the right sinus of Valsalva. The RCA showed no significant disease or stenosis greater than 30%. Coronary Interventions: Angiography reveals a 90% stenosis of the proximal to mid left anterior descending coronary artery. Pre-intervention KENDRA flow was 3. Intravascular Ultrasound (IVUS) was performed on the lesion within the proximal to mid left anterior descending. The plaque seen was predominantly calcific and no thrombus was visualized This lesion was interpreted to be significant. . The minimum lesion lumen diameter was 1.50 mm. Percutaneous coronary intervention was performed within the proximal to mid left anterior descending. The vessel was pre-dilated using a compliant balloon 2.5 mm x 15 mm at 12 OSIRIS. SYNERGY XD Everolimus drug-eluting stent 2.75 mm x 24 mm was advanced to the lesion and implanted at 12 OSIRIS. The stent was post d (more content not included)... [facility] Work Phone: [facility] Work Phone: ECG 12-LEADon 10-16-2023 ECG 12-LEAD Ventricular Rate 81 Atrial Rate 81 P-R Interval 222 QRS Duration 90 Q-T Interval 390 QTC Calculation(Bazett) 453 P [place] 49 R [place] 9 T [place] 9 QRS Count 13 Q Onset 223 P Onset 112 P Offset 181 T Offset 418 QTC Fredericia 430 Diagnosis Sinus rhythm with 1st degree AV block Otherwise normal ECG When compared with ECG of 16-OCT-2023 12:14, (unconfirmed) MD interval has increased Confirmed by Sebastian Gonzáles ([id number]) on 10/16/2023 7:48:20 PM Normal [facility] ECG 12-LEAD Ventricular Rate 63 Atrial Rate 166 P-R Interval 186 QRS Duration 80 Q-T Interval 394 QTC Calculation(Bazett) 403 P [place] 35 R [place] 22 T [place] -2 QRS Count 11 Q Onset 225 P Onset 132 P Offset 189 T Offset 422 QTC Fredericia 400 Diagnosis Undetermined rhythm Low voltage QRS ST & T wave abnormality, consider inferior ischemia Abnormal ECG When compared with ECG of 16-OCT-2023 09:04, (unconfirmed) Current undetermined rhythm precludes rhythm comparison, needs review T wave inversion now evident in Anterior leads Confirmed by Sebastian Gonzáles ([id number]) on 10/16/2023 7:48:25 PM Normal [facility] ECG 12-LEAD Ventricular Rate 69 Atrial Rate 69 P-R Interval 188 QRS Duration 94 Q-T Interval 382 QTC Calculation(Bazett) 409 P [place] 35 R [place] 8 T [place] 10 QRS Count 12 Q Onset 227 P Onset 133 P Offset 194 T Offset 418 QTC Fredericia 400 Diagnosis Normal sinus rhythm Normal ECG When compared with ECG of 28-JUL-2023 10:06, Vent. rate has decreased BY 63 BPM Questionable change in QRS axis ST no longer depressed in Inferior leads ST no longer depressed in Lateral leads Confirmed by Sebastian Gonzáles ([id number]) on 10/16/2023 7:48:38 PM Normal [facility] No Panel InformationOrdered By: Sebastian Gonzáles on 10-16-2023 Atrial Rate 166 BPM [facility] Work Phone: [phone] P [place] 35 degrees [facility] Work Phone: [phone] P Offset 189 ms [facility] Work Phone: [phone] P Onset 132 ms [facility] Work Phone: [phone] MD Interval 186 ms [facility] Work Phone: [phone] Q Onset 225 ms [facility] Work Phone: [phone] QRS Count 11 beats [facility] Work Phone: [phone] QRS Duration 80 ms [facility] Work Phone: [phone] QT Interval 394 ms [facility] Work Phone: [phone] QTC Calculation(Bazett) 403 ms [facility] Work Phone: [phone] QTC Fredericia 400 ms [facility] Work Phone: [phone] R [place] 22 degrees [facility] Work Phone: [phone] T [place] -2 degrees [facility] Work Phone: [phone] T Offset 422 ms [facility] Work Phone: [phone] Ventricular Rate 63 BPM [facility] Work Phone: [phone] [facility] Work Phone: [phone] Atrial Rate 81 BPM [facility] Work Phone: [phone] P [place] 49 degrees [facility] Work Phone: [phone] P Offset 181 ms [facility] Work Phone: [phone] P Onset 112 ms [facility] Work Phone: [phone] MD Interval 222 ms [facility] Work Phone: [phone] Q Onset 223 ms [facility] Work Phone: [phone] QRS Count 13 beats [facility] Work Phone: [phone] QRS Duration 90 ms [facility] Work Phone: QT Interval 390 ms [facility] Work Phone: [phone] QTC Calculation(Bazett) 453 ms [facility] Work Phone: [phone] QTC Fredericia 430 ms [facility] Work Phone: [phone] R [place] 9 degrees [facility] Work Phone: [phone] T [place] 9 degrees [facility] Work Phone: [phone] T Offset 418 ms [facility] Work Phone: [phone] Ventricular Rate 81 BPM [facility] Work Phone: [phone] [facility] Work Phone: [phone] No Panel Informationon 10-16 Undetermined rhythm Low voltage QRS ST & T wave abnormality, consider inferior ischemia Abnormal ECG When compared with ECG of 16-OCT-2023 09:04, (unconfirmed) Current undetermined rhythm precludes rhythm comparison, needs review T wave inversion now evident in Anterior leads Confirmed by Sebastian Gonzáles ([id number]) on 10/16/2023 7:48:25 PM Sebastian Gandara MD - 10/16/2023 Undetermined rhythm Low voltage QRS ST & T wave abnormality, consider inferior ischemia Abnormal ECG When compared with ECG of 16-OCT-2023 09:04, (unconfirmed) Current undetermined rhythm precludes rhythm comparison, needs review T wave inversion now evident in Anterior leads Confirmed by Sebastian Gonzáles ([id number]) on 10/16/2023 7:48:25 PM [facility] Work Phone: Sinus rhythm with 1s t degree AV block Otherwise normal ECG When compared with ECG of 16-OCT-2023 12:14, (unconfirmed) MD interval has increased Confirmed by Sebastian Gonzáles ([id number]) on 10/16/2023 7:48:20 PM Sebastian Gandara MD - 10/16/2023 Sinus rhythm with 1st degree AV block Otherwise normal ECG When compared with ECG of 16-OCT-2023 12:14, (unconfirmed) MD interval has increased Confirmed by Sebastian Gonzáles ([id number]) on 10/16/2023 7:48:20 PM [facility] Work Phone: Cardiac stress study Haley jj 07-28-2023 [place] [address] ext-[phone], Exercise Stress Test Patient Name: SHANNA GARCIA Ordering Provider: [id number] SILVEIRA Study Date: 07/28/2023 Reading Physician: Gustavo Silveira MD MRN/PID: [id number] Supervising Physician: Gustavo Silveira MD Fellow: Date of /Age: 11 1955 Fellow: years Gender: F Nurse: ADRIÁN Admit Date: 07/28/2023 Press Worker Helper: Jayjay Aranda ASBESTOS ABATEMENT TECHNICIAN Admission Status: Outpatient Wood Machinist: ADRIÁN Height: 157.48 cm Technologist: Weight: 88.45 kg Additional Staff: BSA: 1.89 m2 BMI: 35.67 kg/m2 Patient Location: Study Type: STRESS TEST ONLY Diagnosis/ICD: Dyspnea, unspecified-R06.00 Indication: Dyspnea on Exertion CPT Codes: Stress Test Interpretation-69076; Stress Test Supervision-[id number] Falls Risk: Low: Patient has low risk for sustaining a fall; environmental safety interventions in place. Study Details: Correct procedure and correct patient verified verbally and with ID Band checked. Patient History: Family history of coronary artery disease. Allergies: Augmentin, PCN, Sulfa Drugs,. Smoker: Never. Diabetes: No. Patient Performance: The peak heart rate achieved was 133 bpm, which was 87 % of the age predicted target heart rate of 153 bpm. The resting blood pressure was 148/98 mmHg with a heart rate of 81 bpm. The standing blood pressure was 154/95 mmHg with a heart rate of 85 bpm. The patient's functional capacity was average. The patient developed shortness of breath during the stress exam. The symptoms resolved with rest. The blood pressure response was normal. The test was terminated due to: dyspnea and fatigue. Baseline ECG: Resting ECG showed normal sinus rhythm with frequent premature ventricular contractions and normal tracing. Stress ECG: Stress ECG showed normal sinus rhythm, with frequent premature ventricular contractions. Stress Stage Data: + +---+--- ---+-------+ HR Sys BP Hartman BP + +---+--- ---+-------+ Baseline Resting 81 148 98 + +---+--- ---+-------+ Baseline Standing 85 154 95 + +---+--- ---+-------+ Stage I 123 149 86 + +---+--- ---+-------+ Stage II 133 175 86 + +---+--- ---+-------+ Recovery ECG: Recovery ECG showed normal sinus rhythm, with no abnormal findings. The heart rate recovery was normal. + +---+------+- ------+ HR Sys BP Hartman BP + +---+------+- ------+ Recovery I 121 + +---+------+- ------+ Recovery II 103 164 86 + +---+------+- ------+ Recovery III 101 + +---+------+- ------+ Recovery IV 97 150 91 + +---+------+- ------+ Summary: 1. Baseline EKG showing normal sinus rhythm with non-specific ST-T segment changes and frequent PVCs. 2. Patient exercised for 4 min. 3. Heart rate response to exercise is normal. Blood pressure response to exercise is normal. 4. Exercise capacity is below average for age. 5. The test was terminated due to symptoms: dyspnea and fatigue. 6. With exercise, patient developed symptoms of shortness of breath that improved by resting. 7. With exercise, EKG tracing with bad quality that could not be interpreted. 8. Exercise stress EKG is indeterminate for ischemia. Would suggest alternative method for evaluation. 9. Adequate level of stress achieved. [id number] Silveira MD Electronically signed on 07/28/2023 at 4:55:11 PM Final El Barlow MD - 07/28/2023 [place] [address] ext-[phone], Exercise Stress Test Patient Name: SHANNA GARCIA Ordering Provider: [id number] SILVEIRA Study Date: 07/28/2023 Reading Physician: Gustavo Silveira MD MRN/PID: [id number] Supervising Physician: Gustavo Silveira MD Fellow: Date of /Age: 11 1955 Fellow: years Gender: F Nurse: ADRIÁN Admit Date: 07/28/2023 Press Worker Helper: Jayjay Aranda ASBESTOS ABATEMENT TECHNICIAN Admission Status: Outpatient Wood Machinist: ADRIÁN Height: 157.48 cm Technologist: Weight: 88.45 kg Additional Staff: BSA: 1.89 m2 BMI: 35.67 kg/m2 Patient Location: Study Type: STRESS TEST ONLY Diagnosis/ICD: Dyspnea, unspecified-R06.00 Indication: Dyspnea on Exertion CPT Codes: Stress Test Interpretation-67777; Stress Test Supervision-[id number] Falls Risk: Low: Patient has low risk for sustaining a fall; environmental safety interventions in place. Study Details: Correct procedure and correct patient verified verbally and with ID Band checked. Patient History: Family history of coronary artery disease. Allergies: Augmentin, PCN, Sulfa Drugs,. Smoker: Never. Diabetes: No. Patient Performance: The peak heart rate achieved was 133 bpm, which was 87 % of the age predicted target heart rate of 153 bpm. The resting blood pressure was 148/98 mmHg with a heart rate of 81 bpm. The standing blood pressure was 154/95 mmHg with a heart rate of 85 bpm. The patient's functional capacity was average. The patient developed shortness of breath during the stress exam. The symptoms resolved with rest. The blood pressure response was normal. The test was terminated due to: dyspnea and fatigue. Baseline ECG: Resting ECG showed normal sinus rhythm with frequent premature ventricular contractions and normal tracing. Stress ECG: Stress ECG showed normal sinus rhythm, with frequent premature ventricular contractions. Stress Stage Data: + +---+--- ---+-------+ HR Sys BP Hartman BP + +---+--- ---+-------+ Baseline Resting 81 148 98 + +---+--- ---+-------+ Baseline Standing 85 154 95 + +---+--- ---+-------+ Stage I 123 149 86 + +---+--- ---+-------+ Stage II 133 175 86 + +---+--- ---+-------+ Recovery ECG: Recovery ECG showed normal sinus rhythm, with no abnormal findings. The heart rate recovery was normal. + +---+------+- ------+ HR Sys BP Hartman BP + +---+------+- ------+ Recovery I 121 + +---+------+- ------+ Recovery II 103 164 86 + +---+------+- ------+ Recovery III 101 + +---+------+- ------+ Recovery IV 97 150 91 + +---+------+- ------+ Summary: 1. Baseline EKG showing normal sinus rhythm with non-specific ST-T segment changes and frequent PVCs. 2. Patient exercised for 4 min. 3. Heart rate response to exercise is normal. Blood pressure response to exercise is normal. 4. Exercise capacity is below average for age. 5. The test was terminated due to symptoms: dyspnea and fatigue. 6. With exercise, patient developed symptoms of shortness of breath that improved by resting. 7. With exercise, EKG tracing with bad quality that could not be interpreted. 8. Exercise stress EKG is indeterminate for ischemia. Would suggest alternative method for evaluation. 9. Adequate level of stress achieved. [id number] El Silveira MD Electronically signed on 07/28/2023 at 4:55:11 PM Final [facility] Work Phone: [facility] Work Phone: STRESS TEST ONLYon 3 [place] [address] [phone], Exercise Stress Test Patient Name: SHANNA GARCIA Ordering Provider: [id number] SILVEIRA Study Date: 07/28/2023 Reading Physician: [id number] Silveira MD MRN/PID: [id number] Supervising Physician: [id number] El Silveira MD Fellow: Date of /Age: 11 1955 Fellow: years Gender: F Nurse: ADRIÁN Admit Date: 07/28/2023 Press Worker Helper: Jayjay Aranda ASBESTOS ABATEMENT TECHNICIAN Admission Status: Outpatient Wood Machinist: ADRIÁN Height: 157.48 cm Technologist: Weight: 88.45 kg Additional Staff: BSA: 1.89 m2 BMI: 35.67 kg/m2 Patient Location: Study Type: STRESS TEST ONLY Diagnosis/ICD: Dyspnea, unspecified-R06.00 Indication: Dyspnea on Exertion CPT Codes: Stress Test Interpretation-92532; Stress Test Supervision-[id number] Falls Risk: Low: Patient has low risk for sustaining a fall; environmental safety interventions in place. Study Details: Correct procedure and correct patient verified verbally and with ID Band checked. Patient History: Family history of coronary artery disease. Allergies: Augmentin, PCN, Sulfa Drugs,. Smoker: Never. Diabetes: No. Patient Performance: The peak heart rate achieved was 133 bpm, which was 87 % of the age predicted target heart rate of 153 bpm. The resting blood pressure was 148/98 mmHg with a heart rate of 81 bpm. The standing blood pressure was 154/95 mmHg with a heart rate of 85 bpm. The patient's functional capacity was average. The patient developed shortness of breath during the stress exam. The symptoms resolved with rest. The blood pressure response was normal. The test was terminated due to: dyspnea and fatigue. Baseline ECG: Resting ECG showed normal sinus rhythm with frequent premature ventricular contractions and normal tracing. Stress ECG: Stress ECG showed normal sinus rhythm, with frequent premature ventricular contractions. Stress Stage Data: + +---+--- ---+-------+ HR Sys BP Hartman BP + +---+--- ---+-------+ Baseline Resting 81 148 98 + +---+--- ---+-------+ Baseline Standing 85 154 95 + +---+--- ---+-------+ Stage I 123 149 86 + +---+--- ---+-------+ Stage II 133 175 86 + +---+--- ---+-------+ Recovery ECG: Recovery ECG showed normal sinus rhythm, with no abnormal findings. The heart rate recovery was normal. + +---+------+- ------+ HR Sys BP Hartman BP + +---+------+- ------+ Recovery I 121 + +---+------+- ------+ Recovery II 103 164 86 + +---+------+- ------+ Recovery III 101 + +---+------+- ------+ Recovery IV 97 150 91 + +---+------+- ------+ Summary: 1. Baseline EKG showing normal sinus rhythm with non-specific ST-T segment changes and frequent PVCs. 2. Patient exercised for 4 min. 3. Heart rate response to exercise is normal. Blood pressure response to exercise is normal. 4. Exercise capacity is below average for age. 5. The test was terminated due to symptoms: dyspnea and fatigue. 6. With exercise, patient developed symptoms of shortness of breath that improved by resting. 7. With exercise, EKG tracing with bad quality that could not be interpreted. 8. Exercise stress EKG is indeterminate for ischemia. Would suggest alternative method for evaluation. 9. Adequate level of stress achieved. [id number] El Silveira MD Electronically signed on 07/28/2023 at 4:55:11 PM Final [facility] TRANSTHORACIC ECHO (TTE) COM PLETEon 07-28-2023 TRANSTHORACIC ECHO (TTE) [place] [address] ext-[phone], TRANSTHORACIC ECHOCARDIOGRAM REPORT Patient Name: SHANNA GARCIA Reading Physician: [id number] Abraham Espinal MD Study Date: 07/28/2023 Ordering Provider: [id number] EL SILVEIRA MRN/PID: [id number] Fellow: Nurse: Yvonne Finn RN Date of /Age: 11 1955 Wood Machinist: Winston Najera RDCS years Gender: F Additional Staff: Height: 157.48 cm Admit Date: Weight: 88.45 kg Admission Status: Outpatient BSA: 1.89 m2 Department Location: [facility] Echo Lab Blood Pressure: 125 /78 mmHg Study Type: TRANSTHORACIC ECHO (TTE) COMPLETE Diagnosis/ICD: Shortness of breath-R06.02 CPT Codes: Echo Complete w Full Doppler-60887 Study Detail: The following Echo studies were performed: 2D, M-Mode, Doppler and color flow. Agitated saline used as a contrast agent for intraseptal flow evaluation and Definity used as a contrast agent for endocardial border definition. Total contrast used for this procedure was 2.00cc mL via IV push. PHYSICIAN INTERPRETATION: Left Ventricle: Left ventricular systolic function is normal, with an estimated ejection fraction of 60-65%. There are no regional wall motion abnormalities. The left ventricular cavity size is normal. Spectral Doppler shows a pseudonormal pattern of left ventricular diastolic filling. Left Atrium: The left atrium is normal in size. A bubble study using agitated saline was performed. Bubble study is negative. Right Ventricle: The right ventricle is normal in size. There is normal right ventricular global systolic function. Right Atrium: The right atrium was not well visualized. Aortic Valve: The aortic valve was not well visualized. There is no evidence of aortic valve regurgitation. The peak instantaneous gradient of the aortic valve is 13.5 mmHg. The mean gradient of the aortic valve is 8.0 mmHg. Mitral Valve: The mitral valve is normal in structure. There is no evidence of mitral valve regurgitation. Tricuspid Valve: The tricuspid valve was not well visualized. No evidence of tricuspid regurgitation. Pulmonic Valve: The pulmonic valve is not well visualized. The pulmonic valve regurgitation was not well visualized. Pericardium: There is no pericardial effusion noted. Aorta: The aortic root is normal. Systemic Veins: The inferior vena cava appears to be of normal size. There is IVC inspiratory collapse greater than 50%. CONCLUSIONS: 1. Left ventricular systolic function is normal with a 60-65% estimated ejection fraction. 2. Spectral Doppler shows a pseudonormal pattern of left ventricular diastolic filling. QUANTITATIVE DATA SUMMARY: 2D MEASUREMENTS: Normal Ranges: Ao Root d: 3.40 cm (2.0-3.7cm) LAs: 3.90 cm (2.7-4.0cm) IVSd: 0.84 cm (0.6-1.1cm) LVPWd: 0.77 cm (0.6-1.1cm) LVIDd: 4.22 cm (3.9-5.9cm) LVIDs: 2.80 cm LV Mass Index: 54.4 g/m2 LV % FS 33.6 % LA VOLUME: Normal Ranges: LA Vol A4C: 22.3 ml (22+/-6mL/m2) LA Vol A2C: 18.2 ml LA Vol BP: 22.2 ml LA Vol Index A4C: 11.8ml/m2 LA Vol Index A2C: 9.6 ml/m2 LA Vol Index BP: 11.7 ml/m2 LA Area A4C: 11.5 cm2 LA Area A2C: 9.4 cm2 LA Major [place] A4C: 5.0 cm LA Major [place] A2C: 4.2 cm LA Volume Index: 11.5 ml/m2 LA Vol A4C: 21.8 ml LA Vol A2C: 18.2 ml LV SYSTOLIC FUNCTION BY 2D PLANIMETRY (MOD): Normal Ranges: EF-A4C View: 72.0 % (>=55%) EF-A2C View: 60.5 % EF-Biplane: 65.3 % LV DIASTOLIC FUNCTION: Normal Ranges: MV Peak E: 0.70 m/s (0.7-1.2 m/s) MV Peak A: 0.78 m/s (0.42-0.7 m/s) E/A Ratio: 0.90 (1.0-2.2) MV lateral e' 0.10 m/s MV medial e' 0.05 m/s MITRAL VALVE: Normal Ranges: MV DT: 197 msec (150-240msec) AORTIC VALVE: Normal Ranges: AoV Vmax: 1.84 m/s (<=1.7m/s) AoV Peak P.5 mmHg (<20mmHg) AoV Mean P.0 mmHg (1.7-11.5mmHg) LVOT Max Michael: 1.16 m/s (<=1.1m/s) AoV VTI: 37.80 cm (18-25cm) LVOT VTI: 23.10 cm LVOT Diameter: 1.80 cm (1.8-2.4cm) AoV Area, VTI: 1.56 cm2 (2.5-5.5cm2) AoV Area,Vmax: 1.60 cm2 (2.5-4.5cm2) AoV Dimensionless Index: 0.61 RIGHT VENTRICLE: RV Basal 3.79 cm RV Mid 2.75 cm RV Major 7.1 cm TAPSE: 16.9 mm RV s' 0.20 m/s [id number] Abraham Espinal MD Electronically signed on 07/28/2023 at 12:43:30 PM Final Normal [facility] US Heart TransthoracicOrdere d By: Abraham Espinal on 07-28-2023 LV A4C EF 72.0 [facility] Work Phone: [facility] Work Phone: [place] [address] [phone], TRANSTHORACIC ECHOCARDIOGRAM REPORT Patient Name: SHANNA GARCIA Reading Physician: [id number] Abraham Espinal MD Study Date: 07/28/2023 Ordering Provider: [id number] EL SILVEIRA MRN/PID: [id number] Fellow: Nurse: Yvonne Finn RN Date of /Age: 11 1955 Wood Machinist: Winston Rosariovalentino RDCS years Gender: F Additional Staff: Height: 157.48 cm Admit Date: Weight: 88.45 kg Admission Status: Outpatient BSA: 1.89 m2 Department Location: [facility] Echo Lab Blood Pressure: 125 /78 mmHg Study Type: TRANSTHORACIC ECHO (TTE) COMPLETE Diagnosis/ICD: Shortness of breath-R06.02 CPT Codes: Echo Complete w Full Doppler-47088 Study Detail: The following Echo studies were performed: 2D, M-Mode, Doppler and color flow. Agitated saline used as a contrast agent for intraseptal flow evaluation and Definity used as a contrast agent for endocardial border definition. Total contrast used for this procedure was 2.00cc mL via IV push. PHYSICIAN INTERPRETATION: Left Ventricle: Left ventricular systolic function is normal, with an estimated ejection fraction of 60-65%. There are no regional wall motion abnormalities. The left ventricular cavity size is normal. Spectral Doppler shows a pseudonormal pattern of left ventricular diastolic filling. Left Atrium: The left atrium is normal in size. A bubble study using agitated saline was performed. Bubble study is negative. Right Ventricle: The right ventricle is normal in size. There is normal right ventricular global systolic function. Right Atrium: The right atrium was not well visualized. Aortic Valve: The aortic valve was not well visualized. There is no evidence of aortic valve regurgitation. The peak instantaneous gradient of the aortic valve is 13.5 mmHg. The mean gradient of the aortic valve is 8.0 mmHg. Mitral Valve: The mitral valve is normal in structure. There is no evidence of mitral valve regurgitation. Tricuspid Valve: The tricuspid valve was not well visualized. No evidence of tricuspid regurgitation. Pulmonic Valve: The pulmonic valve is not well visualized. The pulmonic valve regurgitation was not well visualized. Pericardium: There is no pericardial effusion noted. Aorta: The aortic root is normal. Systemic Veins: The inferior vena cava appears to be of normal size. There is IVC inspiratory collapse greater than 50%. CONCLUSIONS: 1. Left ventricular systolic function is normal with a 60-65% estimated ejection fraction. 2. Spectral Doppler shows a pseudonormal pattern of left ventricular diastolic filling. QUANTITATIVE DATA SUMMARY: 2D MEASUREMENTS: Normal Ranges: Ao Root d: 3.40 cm (2.0-3.7cm) LAs: 3.90 cm (2.7-4.0cm) IVSd: 0.84 cm (0.6-1.1cm) LVPWd: 0.77 cm (0.6-1.1cm) LVIDd: 4.22 cm (3.9-5.9cm) LVIDs: 2.80 cm LV Mass Index: 54.4 g/m2 LV % FS 33.6 % LA VOLUME: Normal Ranges: LA Vol A4C: 22.3 ml (22+/-6mL/m2) LA Vol A2C: 18.2 ml LA Vol BP: 22.2 ml LA Vol Index A4C: 11.8ml/m2 LA Vol Index A2C: 9.6 ml/m2 LA Vol Index BP: 11.7 ml/m2 LA Area A4C: 11.5 cm2 LA Area A2C: 9.4 cm2 LA Major [place] A4C: 5.0 cm LA Major [place] A2C: 4.2 cm LA Volume Index: 11.5 ml/m2 LA Vol A4C: 21.8 ml LA Vol A2C: 18.2 ml LV SYSTOLIC FUNCTION BY 2D PLANIMETRY (MOD): Normal Ranges: EF-A4C View: 72.0 % (>=55%) EF-A2C View: 60.5 % EF-Biplane: 65.3 % LV DIASTOLIC FUNCTION: Normal Ranges: MV Peak E: 0.70 m/s (0.7-1.2 m/s) MV Peak A: 0.78 m/s (0.42-0.7 m/s) E/A Ratio: 0.90 (1.0-2.2) MV lateral e' 0.10 m/s MV medial e' 0.05 m/s MITRAL VALVE: Normal Ranges: MV DT: 197 msec (150-240msec) AORTIC VALVE: Normal Ranges: AoV Vmax: 1.84 m/s (<=1.7m/s) AoV Peak P.5 mmHg (<20mmHg) AoV Mean P.0 mmHg (1.7-11.5mmHg) LVOT Max Michael: 1.16 m/s (<=1.1m/s) AoV VTI: 37.80 cm (18-25cm) LVOT VTI: 23.10 cm LVOT Diameter: 1.80 cm (1.8-2.4cm) AoV Area, VTI: 1.56 cm2 (2.5-5.5cm2) AoV Area,Vmax: 1.60 cm2 (2.5-4.5cm2) AoV Dimensionless Index: 0.61 RIGHT VENTRICLE: RV Basal 3.79 c (more content not included)... Abraham Randall MD - 07/28/2023 [place] [address] [phone], TRANSTHORACIC ECHOCARDIOGRAM REPORT Patient Name: SHANNA GARCIA Reading Physician: [id number] Abraham Espinal MD Study Date: 07/28/2023 Ordering Provider: [id number] EL JENNIFERLatisha SILVEIRA MRN/PID: [id number] Fellow: Nurse: Yvonne Finn RN Date of /Age: 11 1955 Wood Machinist: Winston Najera RDCS years Gender: F Additional Staff: Height: 157.48 cm Admit Date: Weight: 88.45 kg Admission Status: Outpatient BSA: 1.89 m2 Department Location: [facility] Echo Lab Blood Pressure: 125 /78 mmHg Study Type: TRANSTHORACIC ECHO (TTE) COMPLETE Diagnosis/ICD: Shortness of breath-R06.02 CPT Codes: Echo Complete w Full Doppler-[id number] Study Detail: The following Echo studies were performed: 2D, M-Mode, Doppler and color flow. Agitated saline used as a contrast agent for intraseptal flow evaluation and Definity used as a contrast agent for endocardial border definition. Total contrast used for this procedure was 2.00cc mL via IV push. PHYSICIAN INTERPRETATION: Left Ventricle: Left ventricular systolic function is normal, with an estimated ejection fraction of 60-65%. There are no regional wall motion abnormalities. The left ventricular cavity size is normal. Spectral Doppler shows a pseudonormal pattern of left ventricular diastolic filling. Left Atrium: The left atrium is normal in size. A bubble study using agitated saline was performed. Bubble study is negative. Right Ventricle: The right ventricle is normal in size. There is normal right ventricular global systolic function. Right Atrium: The right atrium was not well visualized. Aortic Valve: The aortic valve was not well visualized. There is no evidence of aortic valve regurgitation. The peak instantaneous gradient of the aortic valve is 13.5 mmHg. The mean gradient of the aortic valve is 8.0 mmHg. Mitral Valve: The mitral valve is normal in structure. There is no evidence of mitral valve regurgitation. Tricuspid Valve: The tricuspid valve was not well visualized. No evidence of tricuspid regurgitation. Pulmonic Valve: The pulmonic valve is not well visualized. The pulmonic valve regurgitation was not well visualized. Pericardium: There is no pericardial effusion noted. Aorta: The aortic root is normal. Systemic Veins: The inferior vena cava appears to be of normal size. There is IVC inspiratory collapse greater than 50%. CONCLUSIONS: 1. Left ventricular systolic function is normal with a 60-65% estimated ejection fraction. 2. Spectral Doppler shows a pseudonormal pattern of left ventricular diastolic filling. QUANTITATIVE DATA SUMMARY: 2D MEASUREMENTS: Normal Ranges: Ao Root d: 3.40 cm (2.0-3.7cm) LAs: 3.90 cm (2.7-4.0cm) IVSd: 0.84 cm (0.6-1.1cm) LVPWd: 0.77 cm (0.6-1.1cm) LVIDd: 4.22 cm (3.9-5.9cm) LVIDs: 2.80 cm LV Mass Index: 54.4 g/m2 LV % FS 33.6 % LA VOLUME: Normal Ranges: LA Vol A4C: 22.3 ml (22+/-6mL/m2) LA Vol A2C: 18.2 ml LA Vol BP: 22.2 ml LA Vol Index A4C: 11.8ml/m2 LA Vol Index A2C: 9.6 ml/m2 LA Vol Index BP: 11.7 ml/m2 LA Area A4C: 11.5 cm2 LA Area A2C: 9.4 cm2 LA Major [place] A4C: 5.0 cm LA Major [place] A2C: 4.2 cm LA Volume Index: 11.5 ml/m2 LA Vol A4C: 21.8 ml LA Vol A2C: 18.2 ml LV SYSTOLIC FUNCTION BY 2D PLANIMETRY (MOD): Normal Ranges: EF-A4C View: 72.0 % (>=55%) EF-A2C View: 60.5 % EF-Biplane: 65.3 % LV DIASTOLIC FUNCTION: Normal Ranges: MV Peak E: 0.70 m/s (0.7-1.2 m/s) MV Peak A: 0.78 m/s (0.42-0.7 m/s) E/A Ratio: 0.90 (1.0-2.2) MV lateral e' 0.10 m/s MV medial e' 0.05 m/s MITRAL VALVE: Normal Ranges: MV DT: 197 msec (150-240msec) AORTIC VALVE: Normal Ranges: AoV Vmax: 1.84 m/s (<=1.7m/s) AoV Peak P.5 mmHg (<20mmHg) AoV Mean P.0 mmHg (1.7-11.5mmHg) LVOT Max Michael: 1.16 m/s (<=1.1m/s) AoV VTI: 37.80 cm (18-25cm) LVOT VTI: 23.10 cm LVOT Diameter: 1.80 cm (1.8-2.4cm) AoV Area, VTI: 1.56 cm2 (2.5-5.5cm2) AoV Area,Vmax: 1.60 cm2 (2.5-4.5cm2) AoV Dimensionless Index: 0.61 RIGHT VENTRICLE: RV Basal 3.79 cm RV Mid 2.75 cm RV Major 7.1 cm TAPSE: 16.9 mm RV s' 0.20 m/s [id number] Abraham Espinal MD Electronically signed on 07/28/2023 at 12:43:30 PM Final [facility] Work Phone: CT CARDIAC SCORING WO IV CON TRASTon 07-17-2023 CT CARDIAC SCORING WO IV CONTRAST Interpreted By: Calixto Caicedo, STUDY: CT CARDIAC SCORING WO IV CONTRAST; 07/17/2023 10:22 am INDICATION: Signs/Symptoms:SOB on exertion. COMPARISON: None. ACCESSION NUMBER(S): [id number] ORDERING CLINICIAN: EL SILVEIRA TECHNIQUE: Using prospective ECG gating, CT scan of the coronary arteries was performed without intravenous contrast. Coronary calcium scoring was performed according to the method of Agatston. FINDINGS: The score and distribution of calcium in the coronary arteries is as follows: LM 0, LAD 322.22, LCx 0, RCA 53.96, Total 376.18 The visualized mid/lower ascending thoracic aorta measures 3.5 cm in diameter. Mild aortic calcification is noted. The heart is normal in size. No pericardial effusion is present. No gross mediastinal or hilar lymphadenopathy or mass is identified. The visualized segments of the lungs are mildly underinflated and clear. The visualized subdiaphragmatic structures appear normal. Mild spinal degenerative changes are noted. IMPRESSION: 1. Coronary artery calcium score of 376.18*. *Coronary artery calcium scoring may be helpful in predicting the risk for future coronary heart disease events. According to the [employer] Clinical Expert Consensus Task Force, such testing provides important prognostic information in patients with more than one coronary heart disease risk factor. The coronary artery calcium score correlates with the annual risk of a non-fatal myocardial infarction or coronary heart disease . Coronary artery score Annual Risk 0-99 0.4% 100-399 1.3% >400 2.4% These three breakpoints correspond to lower, intermediate and high risk states for future coronary events. Such information should be used, along with appropriate clinical judgment, to make decisions regarding the intensity of risk factor management strategies to treat blood lipids and to modify other non-lipid coronary risk factors. Reference: Wapella P et al. Circulation. 2007; 115:402-426 MACRO: None Signed by: Calixto Caicedo 07/17/2023 5:56 PM Dictation workstation: [id number] [facility] CT for calcium scoring WO co ntrast and CTA W contrast IV Heart and coronary arterieson 07-17-2023 1. Coronary artery c alcium score of 376.18*. *Coronary artery calcium scoring may be helpful in predicting the risk for future coronary heart disease events. According to the [place] [employer] Clinical Expert Consensus Task Force, such testing provides important prognostic information in patients with more than one coronary heart disease risk factor. The coronary artery calcium score correlates with the annual risk of a non-fatal myocardial infarction or coronary heart disease . Coronary artery score Annual Risk 0-99 0.4% 100-399 1.3% >400 2.4% These three breakpoints correspond to lower, intermediate and high risk states for future coronary events. Such information should be used, along with appropriate clinical judgment, to make decisions regarding the intensity of risk factor management strategies to treat blood lipids and to modify other non-lipid coronary risk factors. Reference: Wapella P et al. Circulation. 2007; 115:402-426 MACRO: None Signed by: Calixto Caicedo 07/17/2023 5:56 PM Dictation workstation: [id number] MMODAL Interpreted By: Calixto Caicedo, STUDY: CT CARDIAC SCORING WO IV CONTRAST; 07/17/2023 10:22 am INDICATION: Signs/Symptoms:SOB on exertion. COMPARISON: None. ACCESSION NUMBER(S): [id number] ORDERING CLINICIAN: EL SILVEIRA TECHNIQUE: Using prospective ECG gating, CT scan of the coronary arteries was performed without intravenous contrast. Coronary calcium scoring was performed according to the method of Agatston. FINDINGS: The score and distribution of calcium in the coronary arteries is as follows: LM 0, LAD 322.22, LCx 0, RCA 53.96, Total 376.18 The visualized mid/lower ascending thoracic aorta measures 3.5 cm in diameter. Mild aortic calcification is noted. The heart is normal in size. No pericardial effusion is present. No gross mediastinal or hilar lymphadenopathy or mass is identified. The visualized segments of the lungs are mildly underinflated and clear. The visualized subdiaphragmatic structures appear normal. Mild spinal degenerative changes are noted. MMODAL Calixto Caicedo MD - 07/17/2023 Interpreted By: Calixto Caicedo, STUDY: CT CARDIAC SCORING WO IV CONTRAST; 07/17/2023 10:22 am INDICATION: Signs/Symptoms:SOB on exertion. COMPARISON: None. ACCESSION NUMBER(S): [id number] ORDERING CLINICIAN: EL SILVEIRA TECHNIQUE: Using prospective ECG gating, CT scan of the coronary arteries was performed without intravenous contrast. Coronary calcium scoring was performed according to the method of Agatston. FINDINGS: The score and distribution of calcium in the coronary arteries is as follows: LM 0, LAD 322.22, LCx 0, RCA 53.96, Total 376.18 The visualized mid/lower ascending thoracic aorta measures 3.5 cm in diameter. Mild aortic calcification is noted. The heart is normal in size. No pericardial effusion is present. No gross mediastinal or hilar lymphadenopathy or mass is identified. The visualized segments of the lungs are mildly underinflated and clear. The visualized subdiaphragmatic structures appear normal. Mild spinal degenerative changes are noted. IMPRESSION: 1. Coronary artery calcium score of 376.18*. *Coronary artery calcium scoring may be helpful in predicting the risk for future coronary heart disease events. According to the [place] [employer] Clinical Expert Consensus Task Force, such testing provides important prognostic information in patients with more than one coronary heart disease risk factor. The coronary artery calcium score correlates with the annual risk of a non-fatal myocardial infarction or coronary heart disease . Coronary artery score Annual Risk 0-99 0.4% 100-399 1.3% >400 2.4% These three breakpoints correspond to lower, intermediate and high risk states for future coronary events. Such information should be used, along with appropriate clinical judgment, to make decisions regarding the intensity of risk factor management strategies to treat blood lipids and to modify other non-lipid coronary risk factors. Reference: Wapella P et al. Circulation. 2007; 115:402-426 MACRO: None Signed by: Calixto Caicedo 07/17/2023 5:56 PM Dictation workstation: [id number] [facility] Work Phone: Radiology Study observation (narrative) [facility] Work Phone: CT for calcium scoring WO co ntrast and CTA W contrast IV Heart and coronary arteriesOrdered By: Calixto Caicedo on 07-17-2023 [facility] Work Phone: No Panel Informationon 07-10 The EKG today shows normal sinus rhythm with no signs of ACS. [facility] Work Phone: The EKG today shows normal sinus rhythm with no signs of ACS. [facility] Work Phone: Absolute lymphocyte countOrd ered By: David Bhagat on 06-24-2023 Lymphocytes Auto (Unsp spec) [#/Vol] 1.90 10*3/uL 0.83-4.51 [facility] Basophil percentageOrdered B y: David Bhagat on 06-24-2023 Basophils/100 WBC (Bld) 0.6 % 0-1 [facility] Bilirubin [Mass/Vol] 0.30 mg/dL 0.20-1.00 [facility] Comment on above: For patients on eltr ombopag therapy, use of Dimension [place] TBIL is not recommended. Chloride [Moles/Vol] 103 mmol/L 98-107 [facility] Eosinophils/100 WBC (Bld) 5.7 % 0-5 [facility] Glucose [Mass/Vol] 115 mg/dL 74-106 [facility] Comment on above: Fasting Glucose resu lt from 100 to 125 mg/dL suggests IMPAIRED HOMEOSTASIS per A.D.A. criteria. Neutrophils (Bld) [#/Vol] 6.1 10*3/uL 2.0-7.7 [facility] Neutrophils/100 WBC (Bld) 65.1 % 47-70 [facility] Potassium [Moles/Vol] 3.5 mmol/L 3.5-5.1 [facility] Protein [Mass/Vol] 7.1 g/dL 6.4-8.2 [facility] Sodium [Moles/Vol] 136 mmol/L 136-145 [facility] WBC (Bld) [#/Vol] 9.4 10*3/uL 4.4-11.0 [facility] Blood erythrocytes count (nu mber/volume)Ordered By: David Bhagat on 06-24-2023 RBC (Bld) [#/Vol] 4.99 10*6/uL 4.2-5.4 [facility] Blood hemoglobin measurement (mass/volume)Ordered By: David Bhagat on 06-24-2023 Hemoglobin (Bld) [Mass/Vol] 14.7 g/dL 12.0-15.0 [facility] Blood lymphocytes/100 leukoc ytesOrdered By: David Bhagat on 06-24-2023 Lymphocytes/100 WBC (Bld) 20.3 % 19-41 [facility] Blood monocytes/100 leukocyt esOrdered By: David Bhagat on 06-24-2023 Monocytes/100 WBC (Bld) 8.0 % 0-10 [facility] Blood platelet mean volumeOr dered By: David Bhagat on 06-24-2023 Platelet mean volume (Bld) [Entitic vol] 10.0 fL 6.2-12.0 [facility] Determination of erythrocyte mean corpuscular volume (MCV)Ordered By: David Bhagat on 06-24-2023 MCV (RBC) [Entitic vol] 90.2 fL 81-99 [facility] Hematocrit Auto (Bld) [Volum e fraction]Ordered By: David Bhagat on 06-24-2023 Hematocrit (Bld) [Volume fraction] 45.0 % 37-47 [facility] Influenza virus A and B and SARS-CoV-2 (COVID-19) Ag panel - Upper respiratory specimOrdered By: David Bhagat on 06-24-2023 SARS-CoV-2 (COVID-19) RNA DARLNY+probe Ql (Resp) [facility] Laboratory - Chemistry and C hemistry - challengeOrdered By: David Bhagat on 06-24-2023 ALP [Catalytic activity/Vol] 113 U/L 45-117 [facility] ALT [Catalytic activity/Vol] 27 U/L 13-56 [facility] CO2 [Moles/Vol] 29.0 mmol/L 21.0-32.0 [facility] Globulin (S) [Mass/Vol] 3.5 g/dL 2.2-4.2 [facility] Natriuretic peptide B (Bld) [Mass/Vol] 9.0 pg/mL 0-100 [facility] Urea nitrogen/Creatinine [Mass ratio] 30.4 mg/mg 10-20 [facility] Laboratory - Hematology and Cell countsOrdered By: David Bhagat on 06-24-2023 Erythrocyte distribution width (RBC) [Entitic vol] 42.3 fL 35.1-43.9 [facility] Erythrocyte distribution width (RBC) [Ratio] 12.9 % 11.6-14.6 [facility] Immature granulocytes/100 WBC (Bld) 0.300 % 0.0-0.9 [facility] Comment on above: IG% - Immature Granu locytes (promyelocytes, myelocytes and metamyelocytes) > 1% indicates that a LEFT SHIFT is Present. MCH (RBC) [Entitic mass] 29.5 pg 27.0-32.0 [facility] Nucleated RBC/100 WBC (Bld) [Ratio] 0 % 0-5 [facility] Auto (RBC) [Mass/Vol]Or dered By: David Bhagat on 06-24-2023 MCHC (RBC) [Mass/Vol] 32.7 g/dL 32-36 [facility] No Panel InformationOrdered By: David Bhagat on 06-24-2023 Estimated Creatinine Clearance Calc 39.08 ml/min [facility] Estimated GFR (MDRD) Amer 62 mL/min >60 [facility] Comment on above: GFR Calc Estimated GFR (MDRD) Non-Af Amer 52 mL/min >60 [facility] Comment on above: Non- GFR Calc Troponin I High Sensitivity 6 pg/mL 3.0-54.0 [facility] Comment on above: Please Note: New Mayuri t Units and Gender Specific Reference Ranges. For more information see Policy Stat Procedure [place] High Sensitivity Troponin (TNIH) and attachments. Platelets bldOrdered By: Azul Bhagat on 06-24-2023 Platelets (Bld) [#/Vol] 295 10*3/uL 150-450 [facility] Serum or plasma albumin librado urement (mass/volume)Ordered By: David Bhagat on 06-24-2023 Albumin [Mass/Vol] 3.6 g/dL 3.2-5.0 [facility] Serum or plasma albumin/glob ulin mass ratioOrdered By: David Bhagat on 06-24-2023 Albumin/Globulin [Mass ratio] 1.0 {ratio} 0.9-2.4 [facility] Serum or plasma calcium librado urement (mass/volume)Ordered By: David Bhagat on 06-24-2023 Calcium [Mass/Vol] 8.7 mg/dL 8.5-10.1 [facility] Serum or plasma creatinine m easurement (mass/volume)Ordered By: David Bhagat on 06-24-2023 Creatinine [Mass/Vol] 1.12 mg/dL 0.55-1.02 [facility] Comment on above: The validity of the calculated GFR & GFRAA in patients over 70 years has not been determined. Clinical correlation is essential. Serum or plasma urea nitroge n measurement (mass/volume)Ordered By: David Bhagat on 06-24-2023 Urea nitrogen [Mass/Vol] 34 mg/dL 7-18 [facility] Thin prep Papanicolaou smear with manual screeningOrdered By: David Bhagat on 06-24-2023 Thin prep Papanicolaou smear with manual screening 11 U/L 15-37 [facility] Thin prep Papanicolaou smear with manual screening 4 5-15 [facility] Basophil percentageOrdered B y: Kevan Vaca on 06-19-2023 Bilirubin [Mass/Vol] 0.50 mg/dL 0.20-1.00 [facility] Comment on above: For patients on eltr ombopag therapy, use of Dimension [place] TBIL is not recommended. Chloride [Moles/Vol] 107 mmol/L 98-107 [facility] Cholesterol [Mass/Vol] 200 mg/dL <200 [facility] Comment on above: <200 mg/dL Desirable 200-240 mg/dL Borderline >240 mg/dL High Risk Glucose [Mass/Vol] 113 mg/dL 74-106 [facility] Comment on above: Fasting Glucose resu lt from 100 to 125 mg/dL suggests IMPAIRED HOMEOSTASIS per A.D.A. criteria. Potassium [Moles/Vol] 3.9 mmol/L 3.5-5.1 [facility] Protein [Mass/Vol] 7.1 g/dL 6.4-8.2 [facility] Sodium [Moles/Vol] 138 mmol/L 136-145 [facility] Triglyceride [Mass/Vol] 85 mg/dL <199 [facility] Comment on above: The drugs N-Acetylcy steine and Metamizole may falsely depress this assay.Serum Triglycerides Reference Interval Normal <150 mg/dL Borderline high 150 - 199 mg/dL High 200 - 499 mg/dL Very High > or = 500 mg/dL WBC (Bld) [#/Vol] 7.7 10*3/uL 4.4-11.0 [facility] Blood erythrocytes count (nu mber/volume)Ordered By: Kevan Vaca on 06-19-2023 RBC (Bld) [#/Vol] 4.88 10*6/uL 4.2-5.4 [facility] Blood hemoglobin measurement (mass/volume)Ordered By: Kevan Vaca on 06-19-2023 Hemoglobin (Bld) [Mass/Vol] 14.3 g/dL 12.0-15.0 [facility] Blood platelet mean volumeOr dered By: Kevan Vaca on 06-19-2023 Platelet mean volume (Bld) [Entitic vol] 10.5 fL 6.2-12.0 [facility] Determination of erythrocyte mean corpuscular volume (MCV)Ordered By: Kevan Vaca on 06-19-2023 MCV (RBC) [Entitic vol] 90.6 fL 81-99 [facility] Hematocrit Auto (Bld) [Volum e fraction]Ordered By: Kevan Vaca on 06-19-2023 Hematocrit (Bld) [Volume fraction] 44.2 % 37-47 [facility] Laboratory - Chemistry and C hemistry - challengeOrdered By: Kevan Vaca on 06-19-2023 ALP [Catalytic activity/Vol] 93 U/L 45-117 [facility] ALT [Catalytic activity/Vol] 24 U/L 13-56 [facility] CO2 [Moles/Vol] 25.0 mmol/L 21.0-32.0 [facility] Globulin (S) [Mass/Vol] 3.6 g/dL 2.2-4.2 [facility] Urea nitrogen/Creatinine [Mass ratio] 31.0 mg/mg 10-20 [facility] Laboratory - Hematology and Cell countsOrdered By: Kevan Vaca on 06-19-2023 Erythrocyte distribution width (RBC) [Entitic vol] 41.5 fL 35.1-43.9 [facility] Erythrocyte distribution width (RBC) [Ratio] 12.7 % 11.6-14.6 [facility] MCH (RBC) [Entitic mass] 29.3 pg 27.0-32.0 [facility] MCHC Auto (RBC) [Mass/Vol]Or dered By: Kevan Vaca on 06-19-2023 MCHC (RBC) [Mass/Vol] 32.4 g/dL 32-36 [facility] No Panel InformationOrdered By: Kevan Vaca on 06-19-2023 Estimated GFR (MDRD) Amer 83 mL/min >60 [facility] Comment on above: GFR Calc Estimated GFR (MDRD) Non-Af Amer 69 mL/min >60 [facility] Comment on above: Non- GFR Calc Thyroid Stimulating Hormone (TSH) 0.80 uIU/mL 0.358-3.74 [facility] Platelets bldOrdered By: Riki Vaca on 06-19-2023 Platelets (Bld) [#/Vol] 263 10*3/uL 150-450 [facility] Serum or plasma albumin librado urement (mass/volume)Ordered By: Kevan Vaca on 06-19-2023 Albumin [Mass/Vol] 3.5 g/dL 3.2-5.0 [facility] Serum or plasma albumin/glob ulin mass ratioOrdered By: Kevan Vaca on 06-19-2023 Albumin/Globulin [Mass ratio] 1.0 {ratio} 0.9-2.4 [facility] Serum or plasma calcium librado urement (mass/volume)Ordered By: Kevan Vaca on 06-19-2023 Calcium [Mass/Vol] 8.9 mg/dL 8.5-10.1 [facility] Serum or plasma cholesterol in HDL measurement (mass/volume)Ordered By: Kevan Vaca on 06-19-2023 Cholesterol in HDL [Mass/Vol] 42 mg/dL >40 [facility] Comment on above: The drugs N-Acetylcy steine and Metamizole may falsely depress this assay. Reference Range HDL <40 mg/dL Low HDL Cholesterol HDL >or= 60 mg/dL High HDL Cholesterol Serum or plasma cholesterol in VLDL measurement (mass/volume)Ordered By: Kevan Vaca on 06-19-2023 Cholesterol in VLDL [Mass/Vol] 17 mg/dL 5-40 [facility] Serum or plasma creatinine m easurement (mass/volume)Ordered By: Kevan Vaca on 06-19-2023 Creatinine [Mass/Vol] 0.87 mg/dL 0.55-1.02 [facility] Comment on above: The validity of the calculated GFR & GFRAA in patients over 70 years has not been determined. Clinical correlation is essential. Serum or plasma low density lipoprotein (LDL) cholesterol measurement (mass/volume)Ordered By: Kevan Vaca on 06-19-2023 Cholesterol in LDL [Mass/Vol] 141 mg/dL 0-130 [facility] Serum or plasma urea nitroge n measurement (mass/volume)Ordered By: Kevan Vaca on 06-19-2023 Urea nitrogen [Mass/Vol] 27 mg/dL 7-18 [facility] Thin prep Papanicolaou smear with manual screeningOrdered By: Kevan Vaca on 06-19-2023 Thin prep Papanicolaou smear with manual screening 11 U/L 15-37 [facility] Thin prep Papanicolaou smear with manual screening 6 5-15 [facility] POCT UA Automated manually r esultedOrdered By: Shanna Johnson on 06-18-2023 Appearance (U) Clear Clear [facility] Glucose Test strip (U) [Mass/Vol] Negative NEGATIVE mg/dl [facility] Hemoglobin Ql (U) TRACE-Lysed Abnormal NEGATIVE [facility] Interpretation and review of laboratory results Abnormal [facility] Leukocyte esterase Test strip Ql (U) SMALL (1+) Abnormal NEGATIVE [facility] Nitrite Ql (U) Negative NEGATIVE [facility] pH (U) 5.5 [pH] No Reference Range Established [facility] POC Bilirubin, Urine Negative NEGATIVE [facility] POC Color, Urine Yellow Straw, Yellow, Light Yellow [facility] POC Ketones, Urine Negative NEGATIVE mg/dl [facility] POC Protein, Urine Negative NEGATIVE, 30 (1+) mg/dl [facility] POC Specific Juda, Urine <=1.005 1.005 - 1.035 [facility] POC Urobilinogen, Urine 0.2 0.2, 1.0 EU/DL [facility] Medicare Annual Wellness Vis iton 11-27-2022 Medicare Annual Wellness Visit *Chief Complaint Patient here today for Medicare Wellness and follow up 6 months. Patient offers no complaints at this time. History of Present Illness The patient is being seen for the subsequent annual wellness visit. Past Medical, Surgical and Family History: reviewed and updated in chart. Medications and Supplements: Review of all medications by a prescribing practitioner or clinical pharmacist (such as prescriptions, OTCs, herbal therapies and supplements) documented in the medical record. No, the patient is not using opioids. Patient Self Assessment of Health Status: good. Tobacco use: Non-User Alcohol use: Non-User Illicit drug use: Non-User Current diet: well balanced diet. Exercise Frequency: regularly. Depression/Suicide Screening: . During the past 2 weeks, the patient has not felt down, depressed or hopeless. During the past 2 weeks, the patient has not felt little interest or pleasure in doing things. Hearing Impairment: none. Cognitive Impairment: No cognitive impairment observed. Bathing: performs independently. Dressing: performs independently. Walking: performs independently. Toileting: performs independently. Feeding: performs independently. Personal Hygiene: performs independently. Bowels: continent. Bladder: continent. Managing Finances: performs independently. Shopping: performs independently. Managing Medications: performs independently. Housework / Basic Home Maintenance: performs independently. Handling Transportation: performs independently. Preparing Meals: performs independently. Using the Telephone/ Communication Devices: performs independently. Falls Risk Screening:. SHANNA has not fallen in the last 6 months. Home safety risk factors: none. Advance directives:. Patient has no living will. Patient has no healthcare POA. Additional Information: full code. Patient has no complaints today. Patient had labs done in [place] which showed reduction in GFR to 52 from 58 last year. Patient's blood pressure was borderline on intake today. *Active Problems Hypertension (401.9) (I10) Past Medical History History of Diabetes mellitus screening (V77.1) (Z13.1) History of hypertension (V12.59) (Z86.79) Resolved Date: 22 Aug 2021 History of Laceration of right heel (892.0) (S91.311A) Surgical History History of Appendectomy History of Back surgery Family History Family history of diabetes mellitus (V18.0) (Z83.3) Family history of hypertension (V17.49) (Z82.49) Family history of cardiac disorder (V17.49) (Z82.49) Family history of cerebrovascular accident (CVA) (V17.1) (Z82.3) Family history of diabetes mellitus (V18.0) (Z83.3) Family history of hypertension (V17.49) (Z82.49) Social History Drinks caffeinated tea Never a smoker No illicit drug use Patient consumes caffeinated coffee (V49.89) (Z78.9) Patient ingests cola containing caffeine (V49.89) (Z78.9) Very rarely consumes alcohol (V49.89) (Z78.9) *Allergies Augmentin TABS Recorded By: Shanna Johnson; 06/05/2022 10:11:43 AM Bactrim TABS Recorded By: Shanna Johnson; 06/05/2022 10:11:43 AM Darvocet-N 50 TABS Recorded By: Shanna Johnson; 08/22/2021 10:31:10 AM Peanut-derived Recorded By: Shanna Johnson; 08/22/2021 10:31:10 AM Penicillins Recorded By: Shanna Johnson; 08/22/2021 10:31:10 AM *Current Meds Medication NameInstruction amLODIPine Besylate 5 MG Oral TabletTAKE 1 TABLET DAILY DIRECTED. Lisinopril-hydroCHLOROthia zide 20-12.5 MG Oral TabletTAKE 1 TABLET DAILY. Immunizations Influenza --- Series1: 07-Jul-2020; Series2: Sep 07 2021 12:00AM Pfizer-BioNTech COVID-19 Vacc 30 MCG/0.3ML Intramuscular Suspension --- Series1: 07-Dec-2020; Series2: 05-Jan-2021; Series3: Sep 27 2021 12:00AM Tdap --- Series1: Jun 01 2022 12:00AM Patient Care Team Care Team MemberRoleSpecialtyOffice Number Kevan Vaca PA-C [facility] Care [phone] Marcel FORD, Phani [facility] [phone] Holden FORD, Carlos [facility] [phone] *Diagnoses/Problems Encounter for preventive health examination (V70.0) (Z00.00) Hypertension (401.9) (I10) *Orders Complete Blood Count; Status:Active; Requested for:06Nov2023; Perform:Lab Services - Lab To Draw (Blood Test); Due:04Feb2024;Ordered; For:Health Maintenance, Hypertension; Ordered By:Kevan Vaca; Comprehensive Metabolic Panel; Status:Active; Requested for:06Nov2023; Perform:Lab Services - Lab To Draw (Blood Test); Due:04Feb2024;Ordered; For:Health Maintenance, Hypertension; Ordered By:Kevan Vaca; Lipid Panel; Status:Active; Requested for:06Nov2023; Perform:Lab Services - Lab To Draw (Blood Test); Due:04Feb2024;Ordered; For:Health Maintenance, Hypertension; Ordered By:Kevan Vaca; TSH WITH REFLEX TO FREE T4 IF ABNORMAL; Status:Active; Requested for:06Nov2023; Perform:Lab Services - Lab To Draw (Blood Test); Due:04Feb2024;Ordered; For:Health Maintenance, Hypertension; Orde (more content not included)... Normal A V.E.T.S.c.a.r.e. Tobacco Screening.on Adult depression screening assessment No [facility] Work Phone: Fall risk assessment a) No falls within the last year [facility] Work Phone: Tobacco use status [facility] b) No [facility] Work Phone: Basophil percentageon 2022 Bilirubin [Mass/Vol] 0.60 mg/dL 0.20-1.00 [facility] Comment on above: For patients on eltr ombopag therapy, use of Dimension [place] TBIL is not recommended. Chloride [Moles/Vol] 102 mmol/L 98-107 [facility] Cholesterol [Mass/Vol] 190 mg/dL <200 [facility] Comment on above: <200 mg/dL Desirable 200-240 mg/dL Borderline >240 mg/dL High Risk Glucose [Mass/Vol] 101 mg/dL 74-106 [facility] Comment on above: Fasting Glucose resu lt from 100 to 125 mg/dL suggests IMPAIRED HOMEOSTASIS per A.D.A. criteria. Potassium [Moles/Vol] 3.8 mmol/L 3.5-5.1 [facility] Protein [Mass/Vol] 7.4 g/dL 6.4-8.2 [facility] Sodium [Moles/Vol] 137 mmol/L 136-145 [facility] Triglyceride [Mass/Vol] 162 mg/dL <199 [facility] Comment on above: The drugs N-Acetylcy steine and Metamizole may falsely depress this assay.Serum Triglycerides Reference Interval Normal <150 mg/dL Borderline high 150 - 199 mg/dL High 200 - 499 mg/dL Very High > or = 500 mg/dL WBC (Bld) [#/Vol] 7.3 10*3/uL 4.4-11.0 [facility] Blood erythrocytes count (nu mber/volume)on 11-25-2022 RBC (Bld) [#/Vol] 5.01 10*6/uL 4.2-5.4 [facility] Blood hemoglobin measurement (mass/volume)on 11-25-2022 Hemoglobin (Bld) [Mass/Vol] 14.8 g/dL 12.0-15.0 [facility] Blood platelet mean volumeon 11-25-2022 Platelet mean volume (Bld) [Entitic vol] 9.9 fL 6.2-12.0 [facility] Determination of erythrocyte mean corpuscular volume (MCV)on 11-25-2022 MCV (RBC) [Entitic vol] 89.6 fL 81-99 [facility] Hematocrit Auto (Bld) [Volum e fraction]on 11-25-2022 Hematocrit (Bld)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 NEGATIVE [facility] Comment on above: Performed By: #### L 600.89293 #### [facility] [address] [place] [address] UA PH 5.0 Normal 5-6 [facility] Comment on above: Performed By: #### L 600.99383 #### [facility] [address] [place] [address] UA PROTEIN Negative Normal NEGATIVE [facility] Comment on above: Performed By: #### L 600.50273 #### [facility] [place] [address] UA RBC 4 RBC/HPF High 0-3 [facility] Comment on above: Performed By: #### L 600.44693 #### [facility] [address] [place] [address] UA SPEC GRAV 1.018 Normal 1.005-1.030 [facility] Comment on above: Performed By: #### L 600.19339 #### [facility] [place] [address] UA UROBILINOGEN Negative Normal NORMAL [facility] Comment on above: Performed By: #### L 600.03101 #### [facility] [address] [place], [place] [id number] # [phone] KNEE 1 OR 2 VIEWSon 09-20-20 19 KNEE 1 OR 2 VIEWS Patient Name: SHANNA GARCIA STUDY: KNEE; 1 OR 2 VIEWS;Left; 09/20/2019 4:33 pm INDICATION: left knee pain. COMPARISON: None. ACCESSION NUMBER(S): [id number] ORDERING CLINICIAN: JOSEPH SALOMON FINDINGS: Two views of the left knee. No visible acute fractures or dislocations. Mild degenerative changes with small osteophytes. Small joint effusion. No periosteal reaction or cortical erosive changes. IMPRESSION: Mild degenerative changes. Small joint effusion. No visible acute fractures or dislocations. Electronically signed by: NHAN GONZÁLES MD [facility] Provider Note - ED v2on 09-05 Provider Note - ED v2 Provider Note - ED v2: Chart Review: ED NOTES ED NOTES: Chief Complaint and history of present illness: Left knee pain and tenderness. Symptoms for 2 weeks. Symptoms off and on for several months. ROS Unless otherwise stated in this report or unable to obtain because of the patient's clinical or mental status as evidenced by medical record, the patient's positive and negative responses for review of systems for constitutional, eyes, ENT, cardiovascular, respiratory, gastrointestinal, neurological, , musculoskeletal, and integument systems and related systems to the presenting problem are either stated in the history of present illness or were not pertinent or were negative for the symptoms and/or complaints related to the presenting medical problem. Physical Exam Constitutional: Nursing triage notes reviewed, Vital signs reviewed, Alert, Awake & no acute distress. Pulse ox is 98% Extremities: Normal peripheral perfusion and pulses and Full ROM all 4 extremities.Left knee is warm and swollen without any evidence of septic joint. There is a mistry cyst on the posteriro aspect. There are pulses present in posterior tibial area. Neuro: Alert normally oriented, CN 3-12 intact, Normal speech and Strength normal. GCS=15. Skin: Warm and Dry. Capillary refill is less than 2 seconds. Preliminary Diagnoses Of knee osteoarthritis All questions answered for the patient. Patient and the family (as applicable) was/were given an option to inquire about any concerns/questions and received medical advice as it pertains to the chief complaint. Patient Rounding Completed. Joseph Salomon MD, FACEP Faculty Attending Physician - Department of Emergency Medicine [facility] HISTORY OF PRESENTING ILLNESS SHANNA is a 64 year old Female and was seen by me at 20-Sep-2019 13:14 for a chief complaint of lower leg pain/injury (c/o left foot/leg and knee pain x 1 week. denies any injury)(1). Triage Information: Most recent Vital Sign Value Date Temp (F): 99 09-20-2019 11:59 Temp (C): 37.2 09-20-2019 11:59 Heart Rate (beats/min): 83 09-20-2019 11:59 Respirations (breaths/min): 18 09-20-2019 11:59 SpO2 (%): 97 09-20-2019 11:59 BP Systolic (mm Hg): 159 09-20-2019 11:59 BP Diastolic (mm Hg): 89 09-20-2019 11:59 PAST MEDICAL HISTORY ATTESTATION: I have reviewed and confirmed nurse's/medic's notes for patient's medications, allergies, medical history, and surgical history ALLERGIES/INTOLERANCES: Allergy Allergen: [place] Type: Drug Reaction: Other Allergen: Darvocet-N 100 Type: Drug Reaction: Other Allergen: penicillin Type: Drug Reaction: Rash HEALTH HISTORY: No documented data. OUTPATIENT MEDICATIONS: Home Medications Review Status for Reconciliation: Complete Med Status: Patient Currently Takes Medications Drug Name: amLODIPine 5 mg oral tablet Instructions: 1 tab(s) orally once a day Drug Name: lisinopril-hydrochlorothia zide 20 mg-12.5 mg oral tablet Instructions: 1 tab(s) orally once a day SIGNIFICANT EVENTS: Past Medical History Description:Hypertension (HTN) CLINICAL IMPRESSION Diagnosis/Annotation: ED Dx Name:Osteoarthritis of left knee Code:M17.12 Dispostion: discharged Type: home ATTESTATION CRITICAL CARE TIME Is this a critically ill patient: no Electronic Signatures: Joseph Salomon) (Signed 20-Sep-2019 18:11) Authored: Provider Note - ED v2 Last Updated: 20-Sep-2019 18:11 by Joseph Salomon) References: 1. Data Referenced From Triage - ED 20-Sep-2019 11:59 [facility] Risk Screen - Adult Emergenc yon 09-20-2019 Risk Screen - Adult Emergency Preferred Language: Preferred Language: Preferred Language for Discussing Health Care (patient/designee)Irish Advanced Directives: Advance Directive/DNRno Family Violence Adult: Abuse Screen: Are you or have you been threatened or abused physically, emotionally, or sexually by anyoneno Learning Assessment (Patient): Learning Assessment (Patient): Patient is Able to be Assessed for Learningyes Factors Influencing Readiness to Learnn/a Factors that Impact Ability to Learnnone Devices/Methods Used to Communicatenone Learning Preferencesverbal instruction; written material Cultural Considerationsnone Developmental Considerationsnone Hindu Considerationsnone Learning Assessment (Other Learner): Learning Assessment (Other Learner): Other learner availableno Pressure Injury/TB/Substance: Pressure Injury: Do you have a coughno Substance Use Current or Former Historynever: Cigarette/Tobacco, e-Cigarette/Vaping, Alcohol, Street Drugs Admission Risk Screen: Significant IndicatorsComplete CAGE: CAGE: Is this an injured patient at a Tra[place] Center [place]/Enma/Johan/Anjel Lakhani/Radames): no Electronic Signatures: Coretta Avila (FABIOLA) (Signed 20-Sep-2019 12:13) Authored: Preferred Language, Advanced Directives, Family Violence Adult, Learning Assessment (Patient), Learning Assessment (Other Learner), Pressure Injury/TB/Substance, CAGE Last Updated: 20-Sep-2019 12:13 by Coretta Avila (FABIOLA) [facility] Triage - EDon 09-20-2019 Triage - ED Chart Review: CHIEF COMPLAINT SHANNA GARCIA is a Female patient with a chief complaint of lower leg pain/injury (c/o left foot/leg and knee pain x 1 week. denies any injury). Triage Date/Time: 20-Sep-2019 11:35 Pain Rating (0-10): 5 = Moderate Pain location: left leg Vital Signs: Temperature: 99.0F ( 37.2C) taken oral Blood Pressure: 159/89 Mean: Heart Rate: 83 Respiratory Rate: 18 Pulse Oximetry: 97% on room air, no respiratory support. Height: 5 feet 2.00 inches. 157.4 CM Weight: 186.0 pounds. Calculated 84.3 kg. (stated) Calculated BMI (kg/m2): 34.026 Calculated BSA (m2) 1.92 Marilyn Coma Scale: Best Eye Response: (E4) spontaneous Best Motor Response: (M6) obeys commands Best Verbal Response: (V5) oriented Marilyn Score: 15 Allergies: yes Patient has homicidal thoughts: no NELIDA: 4 Symptom Notes: . Symptoms Are POSITIVE For: difficulty walking and pain (describe). Risk Screens Suicide Risk Screen In the Past Month: Have you wished you were or wished you could go to sleep and not wake up no In the Past Month: Have you had any actual thoughts of killing yourself no In Your Lifetime: Have you ever done anything, started to do anything, or prepared to do anything to end your life no Olivera Fall Scale Screening Has the patient fallen before (or is the patient in the ED as a result of a fall) has not had a fall Does the patient have an impaired gait has impaired gait Is the patient cognitively impaired not cognitively impaired Olivera Fall Scale History of falling (immediate or previous) no (0) Secondary Diagnosis no (0) Intravenous Therapy/ Heparin/Saline Lock no (0 Gait/Transferring impaired (20) Ambulatory Aids none/bedrest/nurse assist (0) Mental Status oriented to own ability (0) Olivera Fall Risk Score: 20 Interventions: Olivera Fall Interventions: *patient oriented to surroundings and call system, * patient/family falls education completed and documented, *patients fall status communicated during bedside handoff, *whiteboard updated, *mode of toileting discussed with patient, *bed in low position with brakes locked, *call light in reach, * non-skid footwear PAIN Pain Scale Used: CHARLES Pain Rating (0-10): 5 = Moderate ARRIVAL INFORMATION Means of Arrival: Ambulatory Mode of Arrival: private vehicle Arrival From: home Accompanied By: self Language: Spoken Language Preferred: Irish Reading Language Preferred: Irish Present on Arrival: Device Present on Arrival to ED: no PRIMARY ASSESSMENT SHANNA Tali GARCIA's primary assessment is Within Normal Limits. The airway is open and patent. Breathing spontaneous and unlabored with clear breath sounds bilaterally. Circulation is normal with good peripheral pulses. Skin is warm and dry and color is normal for race. TRAVEL HISTORY Travel Exposure History: NO travel to International locations in the past 30 days Past Medical History: Past Medical History Reviewedyes Hypertension (HTN): Past Medical History, Active Electronic Signatures: Coretta Avila (RN) (Signed 20-Sep-2019 12:06) Authored: Triage, Past Medical History Last Updated: 20-Sep-2019 12:06 by Coretta Avila (RN) Normal [facility] Auto Diffon 07-07-2017 Basophils Auto #/vol (Bld) 0.0 E3/mcL Normal 0.0-0.2 [facility] Comment on above: Order Comment: Order Added by Discern Expert. Performed By: #### 2 [id number] ####JOBY BroWduRadv4112 [place] [address] Basophils/100 WBC Auto (Bld) 0.5 % Normal 0.0-2.0 [facility] Comment on above: Order Comment: Order Added by Discern Expert. Performed By: #### 2 683227 ####JOBY PxeWqka1926 [place] [address] Eos Absolute 0.3 E3/mcL Normal 0.0-0.7 [facility] Comment on above: Order Comment: Order Added by Discern Expert. Performed By: #### 2 893209 ####JOBY IikQvpa3834 [place] [address] Eosinophils/100 leukocytes 4.7 % Normal 0.0-11.0 [facility] Comment on above: Order Comment: Order Added by Discern Expert. Performed By: #### 2 429617 ####JOBY CpkJvnc3763 [place] [address] Lymphocytes 1.4 E3/mcL Normal 1.2-3.4 [facility] Comment on above: Order Comment: Order Added by Discern Expert. Performed By: #### 2 512327 ####JOBY VnkJzru2616 [place] [address] Lymphocytes/100 leukocytes 20.4 % Normal 20.0-55.0 [facility] Comment on above: Order Comment: Order Added by Discern Expert. Performed By: #### 2 303716 ####JOBY YorNzkt6869 [place] [address] [place] Absolute 0.4 E3/mcL Normal 0.0-0.7 [facility] Comment on above: Order Comment: Order Added by Discern Expert. Performed By: #### 2 815203 ####JOBY Bentleyo[address] [place] [address] Monocytes/100 leukocytes 6.2 % Normal 0.0-10.0 [facility] Comment on above: Order Comment: Order Added by Discern Expert. Performed By: #### 2 760954 ####JOBY [address] [place] [address] Neutro Absolute 4.7 E3/mcL Normal 1.4-6.5 [facility] Comment on above: Order Comment: Order Added by Discern Expert. Performed By: #### 2 750432 ####JOBY [address] [place] [address] Neutro Auto 68.2 % Normal 37.0-75.0 [facility] Comment on above: Order Comment: Order Added by Discern Expert. Performed By: #### 2 692593 ####JOBY [address] [place] [address] BMPon 07-07-2017 BUN/Creatinine Ratio 20.9 ratio Normal 5.4-30.0 [facility] Comment on above: Performed By: #### 2 729293 ####JOBY [address] [place] [address] Creatinine 1.1 mg/dL Normal 0.6-1.3 [facility] Comment on above: Performed By: #### 2 701727 ####JOBY [address] [place] [address] Urea nitrogen 23 mg/dL High 7-18 [facility] Comment on above: Performed By: #### 2 571109 ####JOBY BroHwbPdop2776 [place] [address] Calcium 8.8 mg/dL Normal 8.4-10.2 [facility] Comment on above: Performed By: #### 2 742816 ####JOBY [address] [place] [address] Chloride 104 mmol/L Normal 98-107 [facility] Comment on above: Performed By: #### 2 235143 ####JOBY WumYglo8946 [place] [address] CO2 29.6 mmol/L Normal 24.0-30.0 [facility] Comment on above: Performed By: #### 2 850846 ####JOBY [address] [place] [address] Glucose mass conc 108 mg/dL High 70-99 [facility] Comment on above: Performed By: #### 2 449650 ####JOBY [address] [place] [address] Potassium molar conc 4.1 mmol/L Normal 3.5-5.1 [facility] Comment on above: Performed By: #### 2 870596 ####JOBY [address] [place] [address] Sodium 138 mmol/L Normal 136-145 [facility] Comment on above: Performed By: #### 2 241154 ####JOBY [address] [place] [address] CBC w/ Auto Diffon 7 Erythrocyte distribution width Auto Ratio (RBC) 13.8 % Normal 11.5-14.5 [facility] Comment on above: Performed By: #### 2 419180 ####JOBY [address] [place] [address] Erythrocytes (RBC) 5.06 E6/mcL Normal 3.90-5.40 [facility] Comment on above: Performed By: #### 2 946870 ####JOBY [address] [place] [address] Hematocrit (HCT) 44.3 % Normal 36.0-48.0 [facility] Comment on above: Performed By: #### 2 371837 ####JOBY [address] [place] [address] Hemoglobin mass conc (Bld) 14.7 g/dL Normal 12.0-16.0 [facility] Comment on above: Performed By: #### 2 743364 ####JOBY [address] [place] [address] MCH 29.1 pg Normal 27.0-31.0 [facility] Comment on above: Performed By: #### 2 492088 ####JOBY [address] [place] [address] MCHC mass conc (RBC) 33.2 g/dL Normal 33.0-37.0 [facility] Comment on above: Performed By: #### 2 498717 ####JOBY [address] [place] [address] MCV 87.6 fL Normal 78.0-100.0 [facility] Comment on above: Performed By: #### 2 955367 ####JOBY [address] [place] [id number] Platelet mean volume (PMV) 8.8 fL Normal 7.4-11.0 [facility] Comment on above: Performed By: #### 2 095734 ####JOBY [address] [place] [address] Platelets 218 E3/mcL Normal 130-400 [facility] Comment on above: Performed By: #### 2 930953 ####JOBY [address] [place] [address] WBC (Leukocytes) 6.9 E3/mcL Normal 3.6-11.0 [facility] Comment on above: Performed By: #### 2 061971 ####JOBY [address] [place] [address] eGFRon 07-07-2017 eGFR (non-black) mL/min/{1.73_m2} Normal [facility] Comment on above: Order Comment: Order Added by Discern Expert. Performed By: #### 2 896716 ####JOBY [address] [place] [address] eGFR (non-black) 51 mL/min/1.73 m2 Normal [facility] Comment on above: Order Comment: Order Added by Discern Expert. Performed By: #### 2 046895 ####JOBY [address] [place] [address] Auto Diffon 07-06-2017 Basophils Auto #/vol (Bld) 0.1 E3/mcL Normal 0.0-0.2 [facility] Comment on above: Order Comment: Order Added by Discern Expert. Performed By: #### 2 818781 ####JOBY BroHobHbex0221 [place] [address] Basophils/100 WBC Auto (Bld) 0.8 % Normal 0.0-2.0 [facility] Comment on above: Order Comment: Order Added by Discern Expert. Performed By: #### 2 605753 ####JOBY BroLlkGvfd9084 [place] [address] Eos Absolute 0.3 E3/mcL Normal 0.0-0.7 [facility] Comment on above: Order Comment: Order Added by Discern Expert. Performed By: #### 2 539861 ####JOBY KziTvua8485 [place] [address] Eosinophils/100 leukocytes 4.0 % Normal 0.0-11.0 [facility] Comment on above: Order Comment: Order Added by Discern Expert. Performed By: #### 2 710644 ####JOBY RasRzdb3529 [place] [address] Lymphocytes 1.6 E3/mcL Normal 1.2-3.4 [facility] Comment on above: Order Comment: Order Added by Discern Expert. Performed By: #### 2 282928 ####JOBY GzcRxbf8576 [place] [address] Lymphocytes/100 leukocytes 24.9 % Normal 20.0-55.0 [facility] Comment on above: Order Comment: Order Added by Discern Expert. Performed By: #### 2 512482 ####JOBY TtjYsrc6145 [place] [address] [place] Absolute 0.5 E3/mcL Normal 0.0-0.7 [facility] Comment on above: Order Comment: Order Added by Discern Expert. Performed By: #### 2 093702 ####JOBY UzjPhyd2878 [place] [address] Monocytes/100 leukocytes 7.8 % Normal 0.0-10.0 [facility] Comment on above: Order Comment: Order Added by Discern Expert. Performed By: #### 2 582265 ####JOBY BroMbjGuji5212 [place] [address] Neutro Absolute 4.0 E3/mcL Normal 1.4-6.5 [facility] Comment on above: Order Comment: Order Added by Discern Expert. Performed By: #### 2 776496 ####JOBY [address] [place] [address] Neutro Auto 62.5 % Normal 37.0-75.0 [facility] Comment on above: Order Comment: Order Added by Discern Expert. Performed By: #### 2 817350 ####JOBY [address] [place] [address] BMPon 07-06-2017 BUN/Creatinine Ratio 22.2 ratio Normal 5.4-30.0 [facility] Comment on above: Performed By: #### 2 183150 ####JOBY [address] [place] [address] Urea nitrogen 20 mg/dL High 7-18 [facility] Comment on above: Performed By: #### 2 669794 ####JOBY [address] [place] [address] Creatinine 0.9 mg/dL Normal 0.6-1.3 [facility] Comment on above: Performed By: #### 2 233165 ####JOBY [address] [place] [address] Calcium 9.0 mg/dL Normal 8.4-10.2 [facility] Comment on above: Performed By: #### 2 476089 ####JOBY [address] [place] [address] Chloride 102 mmol/L Normal 98-107 [facility] Comment on above: Performed By: #### 2 269846 ####JOBY [address] [place] [address] CO2 28.0 mmol/L Normal 24.0-30.0 [facility] Comment on above: Performed By: #### 2 458626 ####JOBY [address] [place] [address] Glucose mass conc 106 mg/dL High 70-99 [facility] Comment on above: Performed By: #### 2 214707 ####JOBY [address] [place] [address] Potassium molar conc 3.9 mmol/L Normal 3.5-5.1 [facility] Comment on above: Performed By: #### 2 221728 ####JOBY [address] [place] [address] Sodium 142 mmol/L Normal 136-145 [facility] Comment on above: Performed By: #### 2 312731 ####JOBY [address] [place] [address] CBC w/ Auto Diffon 7 Erythrocyte distribution width Auto Ratio (RBC) 13.7 % Normal 11.5-14.5 [facility] Comment on above: Performed By: #### 2 686279 ####JOBY [address] [place] [id number] Erythrocytes (RBC) 4.82 E6/mcL Normal 3.90-5.40 [facility] Comment on above: Performed By: #### 2 075162 ####JOBY [address] [place] [id number] Hematocrit (HCT) 42.1 % Normal 36.0-48.0 [facility] Comment on above: Performed By: #### 2 872597 ####JOBY [address] [place] [address] Hemoglobin mass conc (Bld) 14.0 g/dL Normal 12.0-16.0 [facility] Comment on above: Performed By: #### 2 220254 ####JOBY FclEffb7[address] [place] [address] MCH 29.0 pg Normal 27.0-31.0 [facility] Comment on above: Performed By: #### 2 042563 ####JOBY BroDreWino6142 [place] [address] MCHC mass conc (RBC) 33.3 g/dL Normal 33.0-37.0 [facility] Comment on above: Performed By: #### 2 336935 ####JOBY [address] [place] [address] MCV 87.3 fL Normal 78.0-100.0 [facility] Comment on above: Performed By: #### 2 504927 ####JOBY [address] [place] [address] Platelet mean volume (PMV) 8.8 fL Normal 7.4-11.0 [facility] Comment on above: Performed By: #### 2 922660 ####JOBY [address] [place] [address] Platelets 215 E3/mcL Normal 130-400 [facility] Comment on above: Performed By: #### 2 025963 ####JOBY [address] [place] [address] WBC (Leukocytes) 6.4 E3/mcL Normal 3.6-11.0 [facility] Comment on above: Performed By: #### 2 487280 ####JOBY [address] [place] [address] Lipid Profileon 07-06-2017 Cholesterol 170 mg/dL Normal 50-200 [facility] Comment on above: Result Comment: TOTTali Rico CHOLEESTEROL: <200 NORMAL 200 - 239 BORDERLINE HIGH >240 HIGH Performed By: #### 2 009315 ####JOBY QfgZcug1990 [place] [address] Cholesterol in VLDL mass conc 17 mg/dL Normal [facility] Comment on above: Performed By: #### 2 784906 ####JOBY JlhKexv1925 [place] [address] HDL Cholesterol 37 mg/dL Low >=41 [facility] Comment on above: Performed By: #### 2 970411 ####JOBY IuwBubv0369 [place] [address] LDL Cholesterol 116 mg/dL Normal 0-130 [facility] Comment on above: Result Comment: <100 [id number] NEAR / ABOVE [id number] 159 BORDERLINE [id number] HIGH>190 VERY HIGHCALC LDL NOT VALID WHEN TRIGLYCERIDE IS >400 MG/DL Performed By: #### 2 454842 ####JOBY NipPmlz9608 [place] [address] Triglyceride 83 mg/dL Normal 35-150 [facility] Comment on above: Result Comment: <150 [id number] BORDERLINE [id number] HIGH>500 VERY HIGH Performed By: #### 2 591343 ####JOBY [address] [place] [address] Magnesiumon 07-06-2017 Magnesium 2.0 mg/dL Normal 1.7-2.8 [facility] Comment on above: Performed By: #### 2 653602 ####JOBY [address] [place] [address] eGFRon 07-06-2017 eGFR (non-black) mL/min/{1.73_m2} Normal [facility] Comment on above: Order Comment: Order added by Discern Expert. Performed By: #### 2 455374 ####JOBY [address] [place] [address] Auto Diffon 07-05-2017 Basophils Auto #/vol (Bld) 0.0 E3/mcL Normal 0.0-0.2 [facility] Comment on above: Order Comment: Order Added by Discern Expert. Performed By: #### 2 340678 ####JOBY [address] [place] [address] Basophils/100 WBC Auto (Bld) 0.6 % Normal 0.0-2.0 [facility] Comment on above: Order Comment: Order Added by Discern Expert. Performed By: #### 2 979659 ####JOBY [address] [place] [address] Eos Absolute 0.1 E3/mcL Normal 0.0-0.7 [facility] Comment on above: Order Comment: Order Added by Discern Expert. Performed By: #### 2 286197 ####JOBY [address] [place] [address] Eosinophils/100 leukocytes 1.1 % Normal 0.0-11.0 [facility] Comment on above: Order Comment: Order Added by Discern Expert. Performed By: #### 2 112466 ####JOBY [address] [place] [address] Lymphocytes 0.9 E3/mcL Low 1.2-3.4 [facility] Comment on above: Order Comment: Order Added by Discern Expert. Performed By: #### 2 034046 ####JOBY [address] [place] [address] Lymphocytes/100 leukocytes 11.4 % Low 20.0-55.0 [facility] Comment on above: Order Comment: Order Added by Discern Expert. Performed By: #### 2 903255 ####JOBY [address] [place] [address] [place] Absolute 0.3 E3/mcL Normal 0.0-0.7 [facility] Comment on above: Order Comment: Order Added by Discern Expert. Performed By: #### 2 086011 ####JOBY [address] [place] [address] Monocytes/100 leukocytes 4.2 % Normal 0.0-10.0 [facility] Comment on above: Order Comment: Order Added by Discern Expert. Performed By: #### 2 108768 ####JOBY [address] [place] [address] Neutro Absolute 6.6 E3/mcL High 1.4-6.5 [facility] Comment on above: Order Comment: Order Added by Discern Expert. Performed By: #### 2 295697 ####JOBY [address] [place] [address] Neutro Auto 82.7 % High 37.0-75.0 [facility] Comment on above: Order Comment: Order Added by Discern Expert. Performed By: #### 2 454322 ####JOBY BroDgcVnhp5741 [place] [address] BMPon 07-05-2017 BUN/Creatinine Ratio 20.0 ratio Normal 5.4-30.0 [facility] Comment on above: Performed By: #### 2 159184 ####JOBY BroGezPsit4409 [place] [address] Creatinine 0.9 mg/dL Normal 0.6-1.3 [facility] Comment on above: Performed By: #### 2 985335 ####JOBY BroBrjQkbx6682 [place] [address] Urea nitrogen 18 mg/dL Normal 7-18 [facility] Comment on above: Performed By: #### 2 833814 ####JOBY BroZhhSjzz0640 [place] [address] Calcium 9.2 mg/dL Normal 8.4-10.2 [facility] Comment on above: Performed By: #### 2 028967 ####JOBY XvyEmqo7900 [place] [address] Chloride 103 mmol/L Normal 98-107 [facility] Comment on above: Performed By: #### 2 022166 ####JOBY BroWupDfjw0665 [place] [address] CO2 25.5 mmol/L Normal 24.0-30.0 [facility] Comment on above: Performed By: #### 2 583471 ####JOBY ZbdNuke2967 [place] [address] Glucose mass conc 114 mg/dL High 70-99 [facility] Comment on above: Performed By: #### 2 779975 ####JOBY PshXmwd5864 [place] [address] Potassium molar conc 3.9 mmol/L Normal 3.5-5.1 [facility] Comment on above: Performed By: #### 2 327895 ####JOBY RzeKktq3531 [place] [address] Sodium 137 mmol/L Normal 136-145 [facility] Comment on above: Performed By: #### 2 539251 ####JOBY LceCbcy7929 [place] [address] CBC w/ Auto Diffon 7 Erythrocyte distribution width Auto Ratio (RBC) 13.9 % Normal 11.5-14.5 [facility] Comment on above: Performed By: #### 2 361543 ####JOBY BroJtcWpzi4522 [place] [address] Erythrocytes (RBC) 5.20 E6/mcL Normal 3.90-5.40 [facility] Comment on above: Performed By: #### 2 165921 ####JOBY BroNkmKvgx4752 [place] [address] Hematocrit (HCT) 44.9 % Normal 36.0-48.0 [facility] Comment on above: Performed By: #### 2 705325 ####JOBYTali BroYuyNzba6699 [place] [address] Hemoglobin mass conc (Bld) 15.3 g/dL Normal 12.0-16.0 [facility] Comment on above: Performed By: #### 2 162150 ####JOBY [address] [place] [address] MCH 29.4 pg Normal 27.0-31.0 [facility] Comment on above: Performed By: #### 2 417209 ####JOBY WbjFdda2981 [place] [address] MCHC mass conc (RBC) 34.1 g/dL Normal 33.0-37.0 [facility] Comment on above: Performed By: #### 2 111874 ####JOBY McmYjbv8436 [place] [address] MCV 86.4 fL Normal 78.0-100.0 [facility] Comment on above: Performed By: #### 2 121409 ####JOBY AboFazk4670 [place] [address] Platelet mean volume (PMV) 8.5 fL Normal 7.4-11.0 [facility] Comment on above: Performed By: #### 2 889447 ####JOBY BroVnaGdei2700 [place] [address] Platelets 219 E3/mcL Normal 130-400 [facility] Comment on above: Performed By: #### 2 739972 ####JOBY TifEbwm[address] [place] [id number] WBC (Leukocytes) 8.0 E3/mcL Normal 3.6-11.0 [facility] Comment on above: Performed By: #### 2 939007 ####JOBY BroEmeKtae9651 [place] [address] CKon 07-05-2017 Total CK 61 Int._Unit/L Normal 26-140 [facility] Comment on above: Performed By: #### 2 194564 ####JOBY ZmzDsep7320 [place] [address] CKMBon 07-05-2017 CKMB 2.2 ng/mL Normal 0.0-5.0 [facility] Comment on above: Performed By: #### 2 704486 ####JOBYTali BroDswHhjo9263 [place] [address] CT Brain(ED Only-Stroke Prot ocol)on 07-05-2017 CT Brain(ED Only-Stroke Protocol) Exam Date/Time:07/05/2017 16:33 EDTReason for Exam:StrokeReportEXAM: CT Brain(ED Only-Stroke Protocol)CLINICAL STATEMENT: Possible CVA. Severe headache and visual changes.Right-sided facial droop.COMPARISON: None.TECHNIQUE: CT examination of the head without IV contrast.Dose reduction techniques were achieved by using automated exposure controland/or adjustment of mA and/or kV according to patient size and/or use ofiterative reconstruction technique.REPORT: The skull and scalp are unremarkable. Skull base and its contents arenormal. Limited views of the periorbital regions and paranasal sinuses areunremarkable.There is no evidence of intracranial bleed, mass, midline shift, or extra-axialfluid collections. There is no advanced atrophy. No prominent white matterdisease is noted.No bleed or edema or gross asymmetries are noted. The reconstructed images areunremarkableIMPRESSION: Nonacute CT scan of the head. If there is concern for an acute ischemic event,MRI would be of further benefit if clinically indicated. FINAL REPORT Dictated: 07/05/2017 4:43 pm Jed Jacobson DOSigned (Electronic Signature): 07/05/2017 4:43 pmSigned by: Jed Jacobson DO Technologist: AM Normal [facility] Hep Func Panelon 07-05-2017 Alanine aminotransferase (ALT) 23 Int._Unit/L Normal 10-40 [facility] Comment on above: Performed By: #### 2 076727 ####JOBYTali BroTlvIjab3351 [place] [address] Albumin 4.3 g/dL Normal 3.2-5.0 [facility] Comment on above: Performed By: #### 2 242552 ####JOBY BroDzsTojq3812 [place] [address] Albumin/Globulin Ratio 1.4 {ratio} Normal 1.1-1.9 [facility] Comment on above: Performed By: #### 2 095261 ####JOBYTali BroYszJolz4255 [place] [id number] Alk Phos 102 Int._Unit/L Normal 42-121 [facility] Comment on above: Performed By: #### 2 363841 ####JOBY [address] [place] [id number] Aspartate aminotransferase (AST) 24 Int._Unit/L Normal 10-42 [facility] Comment on above: Performed By: #### 2 531797 ####JOBY [address] [place] [address] Bili Direct .18 mg/dL Normal .00-.20 [facility] Comment on above: Performed By: #### 2 274338 ####JOBY BroDubBkjb1721 [place] [address] Bili Indirect 0.8 Normal [facility] Comment on above: Result Comment: No e stablished ranges available for the Indirect Biliruben. Performed By: #### 2 383930 ####JOBY [address] [place] [address] Bili Total 1.0 mg/dL Normal 0.2-1.0 [facility] Comment on above: Performed By: #### 2 241628 ####JOBY [address] [place] [address] Globulin 3.1 g/dL Normal 2.0-4.0 [facility] Comment on above: Performed By: #### 2 072014 ####JOBY [address] [place] [address] Protein 7.4 g/dL Normal 6.4-8.3 [facility] Comment on above: Performed By: #### 2 925563 ####JOBY BroZmrNiin7381 [place] [address] PTon 07-05-2017 INR Coag RelTime (PPP) 1.0 {INR} Normal 1.0-1.2 [facility] Comment on above: Result Comment: INR Recommended Therapeuptic Ranges: Prophylaxis/treatment of DVT and PE?2.0-3.0 Prevention of systemic embolism?.2.0-3.0 Mechanical prosthetic values?2.5-3.5 CRITICAL VALUES?.>4.0 Performed By: #### [id number] ####[facility] [employer] [id number] [place] [id number] Prothrombin time (PT) Coag time (PPP) 12.3 second(s) Normal 11.6-14.6 [facility] Comment on above: Performed By: #### [id number] ####[facility] [employer] [id number] [place] [address] PTTon 07-05-2017 aPTT 35.6 second(s) Normal 23.2-36.4 [facility] Comment on above: Performed By: #### 2 [id number] ####[place] [address] PTT Control Ratioon 07-05-20 17 PTT Ratio 1.2 ratio Normal 0.8-1.2 [facility] Comment on above: Order Comment: Order added by Discern Expert. Performed By: #### [id number] ####[facility] [employer] [id number] [place] [address] TSHon 07-05-2017 Thyroid stimulating hormone (TSH) 1.30 mIU/m Normal 0.30-5.60 [facility] Comment on above: Performed By: #### 2 [id number] ####[facility] [id number] [place] [id number] Troponin-Ion 07-05-2017 Troponin I.cardiac mass conc 0.01 ng/mL Normal .00-.03 [facility] Comment on above: Performed By: #### 2 [id number] ####[facility] [id number] [place] [id number] eGFRon 07-05-2017 eGFR (non-black) mL/min/{1.73_m2} Normal [facility] Comment on above: Order Comment: Order added by Discern Expert. Performed By: #### 1 [id number] ####[facility] [id number] [place] [id number] Vital Signs Date Time Vital Sign Value Performing Clinician Facility 04-13-2025 08:59-0400 Body height 157.48 cm Kevan Newbill PA Work Phone: [facility] 04-13-2025 08:59-0400 Body mass index (BMI) [Ratio] 36.3 kg/m2 Kevan Newbill PA Work Phone: [facility] 04-13-2025 08:59-0400 Body temperature 98.7 [degF] Kevan Newbill PA Work Phone: [facility] 04-13-2025 08:59-0400 Body weight 90.26 kg Kevan Newbill PA Work Phone: [facility] 04-13-2025 08:59-0400 Diastolic blood pressure 80 mm[Hg] Kevan Newbill PA Work Phone: [facility] 04-13-2025 08:59-0400 Heart rate 68 /min Kevan Newbill PA Work Phone: [facility] 04-13-2025 08:59-0400 Respiratory rate 18 /min Kevan Newbill PA Work Phone: [facility] 04-13-2025 08:59-0400 SaO2% (BldA) [Mass fraction] 97 % Kevan Newbill PA Work Phone: [facility] 04-13-2025 08:59-0400 Systolic blood pressure 116 mm[Hg] Kevan Newbill PA Work Phone: [facility] 03-24-2025 10:59-0400 Body height 157.48 cm Kevan Newbill PA Work Phone: [facility] 03-24-2025 10:59-0400 Body mass index (BMI) [Ratio] 36.9 kg/m2 Kevan Newbill PA Work Phone: [facility] 03-24-2025 10:59-0400 Body temperature 97.6 [degF] Kevan Newbill PA Work Phone: [facility] 03-24-2025 10:59-0400 Body weight 91.62 kg Kevan Newbill PA Work Phone: [facility] 03-24-2025 10:59-0400 Diastolic blood pressure 66 mm[Hg] Kevan Newbill PA Work Phone: [facility] 03-24-2025 10:59-0400 Heart rate 96 /min Kevan Newbill PA Work Phone: [facility] 03-24-2025 10:59-0400 Respiratory rate 18 /min Kevan Newbill PA Work Phone: [facility] 03-24-2025 10:59-0400 SaO2% (BldA) [Mass fraction] 95 % Kevan Newbill PA Work Phone: [facility] 03-24-2025 10:59-0400 Systolic blood pressure 122 mm[Hg] Kevan Newbill PA Work Phone: [facility] 02-07-2025 14:13-0400 Body height 157.48 cm Kevan Newbill PA Work Phone: [facility] 02-07-2025 14:13-0400 Body mass index (BMI) [Ratio] 36.3 kg/m2 Kevan Newbill PA Work Phone: [facility] 02-07-2025 14:13-0400 Body temperature 97.8 [degF] Kevan Newbill PA Work Phone: [facility] 02-07-2025 14:13-0400 Body weight 90.26 kg Kevan Newbill PA Work Phone: [facility] 02-07-2025 14:13-0400 Diastolic blood pressure 80 mm[Hg] Kevan Newbill PA Work Phone: [facility] 02-07-2025 14:13-0400 Heart rate 79 /min Kevan Newbill PA Work Phone: [facility] 02-07-2025 14:13-0400 Respiratory rate 16 /min Kevan Vaca PA Work Phone: [facility] 02-07-2025 14:13-0400 SaO2% (BldA) [Mass fraction] 98 % Kevankay Chenl PA Work Phone: [facility] 02-07-2025 14:13-0400 Systolic blood pressure 112 mm[Hg] Kevan Vaca PA Work Phone: [facility] 10-26-2024 10:27-0500 Body height 157.5 cm El Silveira MD Work Phone: [facility] 10-26-2024 10:27-0500 Body mass index (BMI) [Ratio] 36.14 kg/m2 El Silveira MD Work Phone: 8(414)154-099548 [address] 10-26-2024 10:27-0500 Body weight 89.63 kg El Silveira MD Work Phone: [facility] 10-26-2024 10:27-0500 Diastolic blood pressure 88 mm[Hg] El Silveira MD Work Phone: [facility] 10-26-2024 10:27-0500 Heart rate 76 /min El Silveira MD Work Phone: [facility] 10-26-2024 10:27-0500 SaO2% (BldA) [Mass fraction] 98 % El Silveira MD Work Phone: [facility] 10-26-2024 10:27-0500 Systolic blood pressure 138 mm[Hg] El Silveira MD Work Phone: [facility] 07-29-2024 13:24-0400 Body height 157.5 cm Guillermina Rizzo DO Work Phone: [facility] 07-29-2024 13:24-0400 Body mass index (BMI) [Ratio] 36.21 kg/m2 Guillermina Rizzo DO Work Phone: [facility] 07-29-2024 13:24-0400 Body weight 89.81 kg Guillermina Rizzo DO Work Phone: [facility] 07-29-2024 13:24-0400 Diastolic blood pressure 74 mm[Hg] Guillermina Castilloerbhanuer DO Work Phone: [facility] 07-29-2024 13:24-0400 Heart rate 57 /min Guillermina Reeder DO Work Phone: [facility] 07-29-2024 13:24-0400 Systolic blood pressure 120 mm[Hg] Guillermina Reeder DO Work Phone: [facility] 03-23-2024 22:55-0400 Diastolic blood pressure 80 mm[Hg] Richard Keyes DO Work Phone: [facility] 03-23-2024 22:55-0400 Heart rate 71 /min Richard Keyes DO Work Phone: [facility] 03-23-2024 22:55-0400 Respiratory rate 17 /min Richard Keyes DO Work Phone: [facility] 03-23-2024 22:55-0400 SaO2% (BldA) [Mass fraction] 97 % Richard Keyes DO Work Phone: [facility] 03-23-2024 22:55-0400 Systolic blood pressure 129 mm[Hg] Richard Keyes DO Work Phone: [facility] 03-23-2024 22:20-0400 Body temperature 98.4 [degF] Richard Keyes DO Work Phone: [facility] 03-23-2024 22:10-0400 Body height 157.5 cm Richard Keyes DO Work Phone: [facility] 03-23-2024 22:10-0400 Body mass index (BMI) [Ratio] 35.67 kg/m2 Richard Keyes DO Work Phone: [facility] 03-23-2024 22:10-0400 Body weight 88.45 kg Richard Keyes DO Work Phone: [facility] 01-15-2024 11:23-0400 Body height 157.5 cm Guillermina Oberhauser DO Work Phone: [facility] 01-15-2024 11:23-0400 Body mass index (BMI) [Ratio] 35.11 kg/m2 Guillermina Oberhauser DO Work Phone: [facility] 01-15-2024 11:23-040 Body weight 87.09 kg Guillermina Oberhauser DO Work Phone: [facility] 01-15-2024 11:23-0400 Diastolic blood pressure 83 mm[Hg] Guillermina Oberhauser DO Work Phone: [facility] 01-15-2024 11:23-0400 Heart rate 60 /min Guillermina Oberhauser DO Work Phone: [facility] 01-15-2024 11:23-0400 Systolic blood pressure 133 mm[Hg] Guillermina Oberhauser DO Work Phone: [facility] 10-30-2023 12:53-0500 Body height 157.5 cm El Silveira MD Work Phone: [facility] 10-30-2023 12:53-0500 Body mass index (BMI) [Ratio] 36.09 kg/m2 El Silveira MD Work Phone: [facility] 10-30-2023 12:53-0500 Body weight 89.5 kg El Silveira MD Work Phone: [facility] 10-30-2023 12:53-0500 Diastolic blood pressure 80 mm[Hg] El Silveira MD Work Phone: [facility] 10-30-2023 12:53-0500 Heart rate 85 /min El Silveira MD Work Phone: 1(252)456-869423 [place] [address] 10-30-2023 12:53-0500 SaO2% (BldA) [Mass fraction] 99 % El Silveira MD Work Phone: 2(755)513-937735 [place] [address] 10-30-2023 12:53-0500 Systolic blood pressure 128 mm[Hg] El Silveira MD Work Phone: 8(561)066-128635 [place] [address] 10-16-2023 14:45-0500 SaO2% (BldA) [Mass fraction] 97 % El Silveira MD Work Phone: 5(445)331-527035 [place] [address] 10-16-2023 14:15-0500 Diastolic blood pressure 69 mm[Hg] El Silveira MD Work Phone: 6(875)955-626435 [place] [address] 10-16-2023 14:15-0500 Heart rate 71 /min El Silveira MD Work Phone: 3(781)112-210335 [place] [address] 10-16-2023 14:15-0500 Respiratory rate 18 /min El Silveira MD Work Phone: 4(166)820-089435 [place] [address] 10-16-2023 14:15-0500 Systolic blood pressure 114 mm[Hg] El Silveira MD Work Phone: 6(501)615-947035 [place] [address] 10-16-2023 08:33-0500 Body height 157.5 cm El Silveira MD Work Phone: 5(723)369-641835 [place] [address] 10-16-2023 08:33-0500 Body mass index (BMI) [Ratio] 36.16 kg/m2 El Silveira MD Work Phone: 2(886)189-012035 [place] [address] 10-16-2023 08:33-0500 Body temperature 98.4 [degF] El Silveira MD Work Phone: 8(066)705-154735 [place] [address] 10-16-2023 08:33-0500 Body weight 89.7 kg El Silveira MD Work Phone: [facility] 09-09-2023 10:27-0500 Body height 157.5 cm El Silveira MD Work Phone: [facility] 09-09-2023 10:27-0500 Body mass index (BMI) [Ratio] 35.67 kg/m2 El Silveira MD Work Phone: [facility] 09-09-2023 10:27-0500 Body weight 88.45 kg El Silveira MD Work Phone: [facility] 09-09-2023 10:27-0500 Diastolic blood pressure 86 mm[Hg] El Silveira MD Work Phone: [facility] 09-09-2023 10:27-0500 Heart rate 65 /min El Silveira MD Work Phone: [facility] 09-09-2023 10:27-0500 SaO2% (BldA) [Mass fraction] 97 % El Silveira MD Work Phone: [facility] 09-09-2023 10:27-0500 Systolic blood pressure 122 mm[Hg] El Silveira MD Work Phone: [facility] 07-28-2023 11:09-0400 Body height 157.5 cm [facility] 1 [facility] 07-28-2023 11:09-0400 Body mass index (BMI) [Ratio] 35.67 kg/m2 [facility] 1 [facility] 07-28-2023 11:09-0400 Body weight 88.45 kg [facility] 1 [facility] 07-28-2023 11:09-0400 Diastolic blood pressure 78 mm[Hg] [facility] 1 [facility] 07-28-2023 11:09-0400 Heart rate 106 /min [facility] 1 [facility] 07-28-2023 11:09-0400 Respiratory rate 18 /min [facility] 1 [facility] 07-28-2023 11:09-0400 SaO2% (BldA) [Mass fraction] 96 % [facility] 1 [facility] 07-28-2023 11:09-0400 Systolic blood pressure 125 mm[Hg] [facility] 1 [facility] 07-10-2023 14:170400 Body height 157.5 cm El Silveira MD Work Phone: [facility] 07-10-2023 14:17-0400 Body mass index (BMI) [Ratio] 35.67 kg/m2 El Silveira MD Work Phone: [facility] 07-10-2023 14:17040 Body weight 88.45 kg El Silveira MD Work Phone: [facility] 07-10-2023 14:17040 Diastolic blood pressure 88 mm[Hg] El Silveira MD Work Phone: [facility] 07-10-2023 14:17-040 Heart rate 77 /min El Silveira MD Work Phone: [facility] 07-10-2023 14:17-0400 SaO2% (BldA) [Mass fraction] 97 % El Silveira MD Work Phone: [facility] 07-10-2023 14:17-0400 Systolic blood pressure 140 mm[Hg] El Silveira MD Work Phone: [facility] 06-30-2023 08:39-0400 Body height 157.5 cm Kevan Chenl PA-C Work Phone: [facility] 06-30-2023 08:39-0400 Body mass index (BMI) [Ratio] 35.7 kg/m2 Kevankay Chenl PA-C Work Phone: [facility] 06-30-2023 08:39-0400 Body temperature 97.5 [degF] Kevan Chenl PA-C Work Phone: [facility] 06-30-2023 08:39-0400 Body weight 88.54 kg Kevan Newbill PA-C Work Phone: [facility] 06-30-2023 08:39-0400 Diastolic blood pressure 96 mm[Hg] Kevan Newbill PA-C Work Phone: [facility] 06-30-2023 08:39-0400 Heart rate 70 /min Kevan Newdelll PA-C Work Phone: [facility] 06-30-2023 08:39-0400 SaO2% (BldA) [Mass fraction] 95 % Kevan Chenl PA-C Work Phone: [facility] 06-30-2023 08:39-0400 Systolic blood pressure 158 mm[Hg] Kevan Newdelll PA-C Work Phone: [facility] 06-26-2023 11:10-0400 Body height 157.48 cm [facility] 06-26-2023 11:10-0400 Body mass index (BMI) [Ratio] 35.6 kg/m2 [facility] 06-26-2023 11:10-0400 Body temperature 98 [degF] [facility] 06-26-2023 11:10-0400 Body weight 88.45 kg [facility] 06-26-2023 11:10-0400 Diastolic blood pressure 89 mm[Hg] [facility] 06-26-2023 11:10-0400 Heart rate 86 /min [facility] 06-26-2023 11:10-0400 Respiratory rate 18 /min [facility] 06-26-2023 11:10-0400 SaO2% (BldA) [Mass fraction] 99 % [facility] 06-26-2023 11:10-0400 Systolic blood pressure 125 mm[Hg] [facility] 06-24-2023 22:30-0400 Heart rate 66 /min [facility] 06-24-2023 22:30-0400 Respiratory rate 20 /min [facility] 06-24-2023 22:30-0400 SaO2% (BldA) [Mass fraction] 98 % [facility] 06-24-2023 19:43-0400 Body height 157.48 cm [facility] 06-24-2023 19:43-0400 Body mass index (BMI) [Ratio] 35.6 kg/m2 [facility] 06-24-2023 19:43-0400 Body temperature 97.5 [degF] [facility] 06-24-2023 19:43-0400 Body weight 88.45 kg [facility] 06-24-2023 19:43-0400 Diastolic blood pressure 99 mm[Hg] [facility] 06-24-2023 19:43-0400 Systolic blood pressure 153 mm[Hg] [facility] 06-18-2023 16:12-0400 Body height 157.5 cm Kevan Newbill PA-C Work Phone: 8(601)336-783098 [address] 06-18-2023 16:12-0400 Body mass index (BMI) [Ratio] 35.37 kg/m2 Kevan Newbill PA-C Work Phone: 0(739)430-577898 [address] 06-18-2023 16:12-0400 Body temperature 98.01 [degF] Kevan Newbill PA-C Work Phone: 4(775)550-410698 [address] 06-18-2023 16:12-0400 Body weight 87.73 kg Kevan Newbill PA-C Work Phone: 8(575)013-913998 [address] 06-18-2023 16:12-0400 Diastolic blood pressure 92 mm[Hg] Kevan Newbill PA-C Work Phone: 1(447)099-529455 [place] [address] 06-18-2023 16:12-0400 Heart rate 91 /min Kevan Newbill PA-C Work Phone: 9(501)406-502755 [place] [address] 06-18-2023 16:12-0400 Systolic blood pressure 172 mm[Hg] Kevan Newbill PA-C Work Phone: 1(390)765-59[address] [place] [address] 02-13-2023 11:40-0400 Body height 157.5 cm Kevan Newbill PA-C Work Phone: [facility] 02-13-2023 11:40-0400 Body mass index (BMI) [Ratio] 34.75 kg/m2 Kevan Newbill PA-C Work Phone: [facility] 02-13-2023 11:40-0400 Body weight 86.18 kg Kevan Newbill PA-C Work Phone: [facility] 02-13-2023 11:40-0400 Diastolic blood pressure 92 mm[Hg] Kevan Newbill PA-C Work Phone: [facility] 02-13-2023 11:40-0400 Heart rate 66 /min Kevan Newbill PA-C Work Phone: [facility] 02-13-2023 11:40-0400 SaO2% (BldA) [Mass fraction] 97 % Kevan Newbill PA-C Work Phone: [facility] 02-13-2023 11:40-0400 Systolic blood pressure 158 mm[Hg] Kevan Newbill PA-C Work Phone: [facility] 11-27-2022 09:30-0500 Body height 157.48 cm Kevan Chenl Work Phone: [facility] Work Phone: 11-27-2022 09:30-0500 Body mass index (BMI) [Ratio] 35.61 kg/m2 Kevan Garg Newbill [facility] Work Phone: 11-27-2022 09:30-0500 Body surface area Derived from formula 1.89 m2 Kevan Britany Newbill Work Phone: [facility] Work Phone: 11-27-2022 09:30-0500 Body temperature 98.6 [degF] Kevan Garg Newbill Work Phone: [facility] Work Phone: 11-27-2022 09:30-0500 Body weight 88.32 kg Kevan Vaca Work Phone: [facility] Work Phone: 11-27-2022 09:30-0500 Diastolic blood pressure 89 mm[Hg] Kevan Chenl Work Phone: [facility] Work Phone: 11-27-2022 09:30-0500 Heart rate 78 /min Kevan Vaca Work Phone: [facility] Work Phone: 11-27-2022 09:30-0500 SaO2% (BldA) [Mass fraction] 97 % Kevan Vaca Work Phone: [facility] Work Phone: 11-27-2022 09:30-0500 Systolic blood pressure 145 mm[Hg] Kevan Vaca Work Phone: [facility] Work Phone: 06-05-2022 09:56-0400 Body height 157.48 cm Kevan Vaca Work Phone: [facility] Work Phone: 06-05-2022 09:56-0400 Body mass index (BMI) [Ratio] 35.32 kg/m2 Kevan Vaca Work Phone: [facility] Work Phone: 06-05-2022 09:56-0400 Body surface area Derived from formula 1.88 m2 Kevan Vaca Work Phone: [facility] Work Phone: 06-05-2022 09:56-0400 Body temperature 98.6 [degF] Kevan Vaca Work Phone: [facility] Work Phone: 06-05-2022 09:56-0400 Body weight 87.59 kg Kevan Vaca Work Phone: [facility] Work Phone: 06-05-2022 09:56-0400 Diastolic blood pressure 74 mm[Hg] Kevan Vaca Work Phone: [facility] Work Phone: 06-05-2022 09:56-0400 Heart rate 75 /min Kevan Vaca Work Phone: [facility] Work Phone: 06-05-2022 09:56-0400 SaO2% (BldA) [Mass fraction] 97 % Kevan Vaca Work Phone: [facility] Work Phone: 06-05-2022 09:56-0400 Systolic blood pressure 150 mm[Hg] Kevan Vaca Work Phone: [facility] Work Phone: 06-01-2022 23:49-0400 Diastolic blood pressure 76 mm[Hg] [facility] Work Phone: 06-01-2022 23:49-0400 Heart rate 74 /min [facility] Work Phone: 06-01-2022 23:49-0400 Respiratory rate 17 /min [facility] Work Phone: 06-01-2022 23:49-0400 SaO2% (BldA) [Mass fraction] 97 % [facility] Work Phone: 06-01-2022 23:49-0400 Systolic blood pressure 122 mm[Hg] [facility] Work Phone: 06-01-2022 22:50-0400 Body height 157.48 cm [facility] Work Phone: 06-01-2022 22:50-0400 Body mass index (BMI) [Ratio] 34 kg/m2 [facility] Work Phone: 06-01-2022 22:50-0400 Body temperature 98.7 [degF] [facility] Work Phone: 06-01-2022 22:50-0400 Body weight 84.36 kg [facility] Work Phone: 08-22-2021 10:09-0500 Body height 157.48 cm Kevan Britany Newbill Work Phone: [facility] Work Phone: 08-22-2021 10:09-0500 Body mass index (BMI) [Ratio] 33.98 kg/m2 Kevan Britany Newbill Work Phone: [facility] Work Phone: 08-22-2021 10:09-0500 Body surface area Derived from formula 1.85 m2 Kevan Britany Newbill Work Phone: [facility] Work Phone: 08-22-2021 10:09-0500 Body temperature 97.8 [degF] Kevan Britany Newbill Work Phone: [facility] Work Phone: 08-22-2021 10:09-0500 Body weight 84.28 kg Kevan Britany Newbill Work Phone: [facility] Work Phone: 08-22-2021 10:09-0500 Diastolic blood pressure 86 mm[Hg] Kevan Britany Newbill Work Phone: [facility] Work Phone: 08-22-2021 10:09-0500 Heart rate 74 /min Kevan Britany Newbill Work Phone: [facility] Work Phone: 08-22-2021 10:09-0500 SaO2% (BldA) [Mass fraction] 98 % Kevan Vaca Work [facility] Work Phone: 08-22-2021 10:09-0500 Systolic blood pressure 142 mm[Hg] Kevan Vaca Work Phone: [facility] Work Phone: Encounters Encounter Date Encounter Type Care Provider Facility Start: 06-18-2025 ambulatory Timothy Jade [facility] ty:[facility] Start: 04-13-2025 End: 04-13-2025 ambulatory Kevan Newbill PA Work Phone: -Radiology [facility] Start: 04-13-2025 End: 04-13-[address] Timothy Jade MD -Radiology [facility] Work Phone: Start: 04-13-2025 End: 04-13-[address] Timothy Jade MD -[facility] Work Phone: Start: 04-13-2025 End: 04-13-2025 ambulatory Kevan Newbill PA Work Phone: -[facility] Start: 04-13-2025 End: 04-13-2025 ambulatory Timothy Jade Facility:[facility] Start: 03-24-2025 End: 03-24-2025 Patient encounter procedure Lelia REYES -[facility] Work Phone: Start: 03-24-2025 End: 03-24-2025 ambulatory Kevan Newbill PA Work Phone: [facility] Work Phone: Start: 02-07-2025 Patient encounter status Kevan Newbill PA Work Phone: [facility] Start: 02-07-2025 End: 02-07-20[facility] Work Phone: Start: 02-07-2025 End: 02-07-[address] Timothy Jade MD -Laboratory, [facility] Start: 02-07-2025 End: 02-07-[address] Timothy Jade MD -[facility] Work Phone: Start: 02-07-2025 End: 02-07-[address] Timothy Jade MD [facility] Start: 02-07-2025 End: 02-07-2025 ambulatory Kevan Vaca Facility:[facility] Start: 02-07-2025 End: 02-07-2025 ambulatory [facility] Facility:[facility] Start: 10-26-2024 End: 10-26-2024 Office outpatient visit 25 minutes El Silveira MD Work Phone: [facility] Comment on above: Hx of heart artery s tent (Primary Dx); Hypertension, unspecified type; Atherosclerosis; 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 (Multi); Shortness of breath; PVC (premature ventricular contraction) Start: 10-26-2024 End: 10-26-2024 ambulatory [facility] Start: 07-29-2024 End: 07-29-2024 Office outpatient visit 15 minutes Guillermina Rizzo DO Work Phone: [facility] Comment on above: Atherosclerosis (Myriam beatrice Dx); Primary hypertension; Occlusion of left anterior descending (LAD) artery (Multi); Lumbosacral neuritis; Mixed hyperlipidemia Start: 07-29-2024 End: 07-29-2024 ambulatory [facility] Start: 03-23-2024 End: 03-23-2024 Emergency department patient visit Richard Erika Keyes DO Work Phone: [facility] Comment on above: Trapezius muscle spa sm (Primary Dx) Start: 02-02-2024 End: 02-02-2024 ambulatory [facility] Start: 01-30-2024 End: 01-30-2024 [facility] Start: 01-28-2024 End: 01-28-2024 [facility] Start: 01-26-2024 End: 01-26-2024 ambulatory [facility] Start: 01-23-2024 End: 01-23-2024 ambulatory [facility] Start: 01-21-2024 End: 01-21-2024 [facility] Start: 01-19-2024 End: 01-19-2024 [facility] Start: 01-16-2024 End: 01-16-2024 [facility] Start: 01-15-2024 End: 01-15-2024 Patient encounter procedure Guillermina Rizzo DO Work Phone: [facility] Comment on above: Primary hypertension (Primary Dx); Obesity, morbid (CMS/HCC) Start: 01-14-2024 End: 01-14-2024 [facility] Start: 01-12-2024 End: 01-12-2024 [facility] Start: 01-07-2024 End: 01-07-2024 [facility] Start: 01-05-2024 End: 01-05-2024 [facility] Start: 01-02-2024 End: 01-02-2024 [facility] Start: 12-31-2023 End: 12-31-2023 ambulatory EL [facility] Start: 12-29-2023 End: 12-29-2023 [facility] Start: 12-26-2023 End: 12-26-2023 [facility] Start: 12-24-2023 End: 12-24-2023 [facility] Start: 12-22-2023 End: 12-22-2023 [facility] Start: 12-19-2023 End: 12-19-2023 ambulatory EL [facility] Start: 12-17-2023 End: 12-17-2023 ambulatory EL [facility] Start: 12-15-2023 End: 12-15-2023 ambulatory EL [facility] Start: 12-12-2023 End: 12-12-2023 ambulatory EL [facility] Start: 12-10-2023 End: 12-10-2023 ambulatory EL [facility] Start: 12-08-2023 End: 12-08-2023 ambulatory EL [facility] Start: 12-05-2023 End: 12-05-2023 [facility] Start: 12-03-2023 End: 12-03-2023 ambulatory EL [facility] Start: 12-01-2023 End: 12-01-2023 ambulatory EL [facility] Start: 11-26-2023 End: 11-26-2023 ambulatory EL [facility] Start: 11-24-2023 End: 11-24-2023 ambulatory EL [facility] Start: 11-21-2023 End: 11-21-2023 ambulatory EL JENNIFER PHIPPS [facility] Start: 11-19-2023 End: 11-19-2023 ambulatory EL JENNIFER PHIPPS [facility] Start: 11-17-2023 End: 11-17-2023 ambulatory [facility] Start: 11-14-2023 End: 11-14-2023 ambulatory EL [facility] Start: 11-12-2023 End: 11-12-2023 ambulatory [facility] Start: 11-10-2023 End: 11-10-[address] [facility] Start: 11-07-2023 End: 11-07-[address] 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 angina pectoris (Primary Dx) Start: 10-16-2023 End: 10-16-2023 Subsequent hospital visit by physician Avel Chadwick [facility] Comment on above: Arrived Start: 10-16-2023 End: 10-16-2023 ambulatory TILA SNEED [facility] Start: 10-16-2023 End: 10-16-2023 ambulatory EL [facility]ENN[facility] Start: 10-16-2023 End: 10-16-2023 Subsequent hospital visit by physician El Silveira MD Work Phone: [facility] Comment on above: Atherosclerosis (Myriam beatrice Dx); 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 (CMS/HCC); Chest pain, unspecified Start: 09-09-2023 End: 09-09-2023 Office outpatient visit 25 minutes El Silveira MD Work Phone: [facility] Office Building Comment on above: Atherosclerosis (Myriam beatrice Dx) Start: 07-28-2023 End: 07-28-2023 Subsequent hospital visit by physician Avel Navas 1 [facility] Comment on above: Shortness of breath; Dyspnea, unspecified Shortness of breath Start: 07-28-2023 End: 07-28-2023 ambulatory [facility] Start: 07-17-2023 End: 07-17-2023 Subsequent hospital visit by physician Avel Melo 1 [facility] Comment on above: Shortness of breath Start: 07-17-2023 End: 07-17-2023 ambulatory [facility] Start: 07-10-2023 End: 07-10-2023 Office outpatient new 45 minutes El Silveira MD Work Phone: [facility] Office Building Comment on above: Primary hypertension (Primary Dx); Healthcare maintenance; Shortness of breath Start: 07-10-2023 End: 07-10-2023 Patient encounter status El Silveira MD Work Phone: [facility] Start: 06-30-2023 End: 06-30-2023 Office outpatient visit 15 minutes Kevan Vaca PA-C Work Phone: [facility] Comment on above: SOB (shortness of br eath) on exertion (Primary Dx) Start: 06-26-2023 End: 06-26-2023 Emergency department patient visit [facility] Work Phone: Start: 06-24-2023 End: 06-24-2023 Emergency department patient visit [facility] Work Phone: Start: 06-19-2023 End: 06-19-2023 ambulatory [facility] Work Phone: Start: 06-19-2023 End: 06-19-2023 Patient encounter procedure [facility] Work Phone: Start: 06-18-2023 End: 06-18-2023 Office outpatient visit 25 minutes Kevan Vaca PA-C Work Phone: [facility] Comment on above: Dysuria (Primary Dx) ; Acute cystitis with hematuria; Primary hypertension; Encounter for lipid screening for cardiovascular disease Start: 02-13-2023 End: 02-13-2023 Office outpatient visit 25 minutes Kevan Vaca PA-C Work Phone: [facility] Comment on above: Dysfunction of left eustachian tube (Primary Dx); Seborrheic dermatitis Start: 12-05-2022 AUDIT Kevan Vaca Work Phone: [facility] Work Phone: Start: 11-27-2022 Patient encounter procedure Kevan Vaca Work Phone: [facility] Work Phone: Start: 11-27-2022 ambulatory KEVAN CHEN Facility:1 [id number] Start: 11-25-2022 End: 11-25-2022 ambulatory [facility] Work Phone: Start: 11-25-2022 End: 11-25-2022 Patient encounter procedure [facility] Start: 06-06-2022 End: 06-06-2022 ambulatory [facility] Work Phone: Start: 06-06-2022 End: 06-06-2022 Patient encounter procedure [facility] Start: 06-05-2022 Office outpatient vi sit 25 minutes Kevan Vaca Work Phone: [facility] Work Phone: Start: 06-01-2022 End: 06-01-2022 Emergency department patient visit [facility] Start: 03-31-2022 Trell Parks MD Work Phone: [facility] Comment on above: Refill Request Start: 08-27-2021 AUDIT Kevan Vaca Work Phone: [facility] Work Phone: Start: 08-22-2021 Current tobacco non- user cad cap copd pv dm Kevankay Vaca Work Phone: [facility] Work Phone: Start: 07-05-2017 End: 07-07-2017 Evaluation and management of inpatient Phani Rod Facility:[facility] Procedures Date Procedure Procedure Detail Performing Clinician Start: 04-13-2025 X-ray of foot, three or more views Kevan RIVERO Work Phone: Start: 10-26-2024 Ecg routine ecg w/least 12 lds w/i&r El Silveira MD Work Phone: Start: 10-31-2023 AMB REFERRAL TO CARDIAC REHAB EL SILVEIRA Start: 10-16-2023 ECG 12-LEAD EL SILVEIRA Start: 10-16-2023 End: 10-16-2023 Ecg routine ecg w/least 12 lds trcg only w/o i&r Tila LEON, DNP Work Phone: Start: 10-16-2023 ECG 12-LEAD EL SILVEIRA Start: 10-16-2023 Ecg routine ecg w/least 12 lds trcg only w/o i&r Tila LEON, DNP Work Phone: Start: 10-16-2023 DISCHARGE PATIENT EL SILVEIRA Start: 10-16-2023 TELEMETRY MONITORING EL SILVEIRA Start: 10-16-2023 CARDIAC CATHETERIZATION - CORONARY EL SILVEIRA Start: 10-16-2023 Cardiac catheterization study El Silveira MD Work Phone: Start: 10-16-2023 PLACE IN OUTPATIENT/HOSPITAL AMBULATORY SURGERY EL SILVEIRA Start: 10-16-2023 FULL CODE EL SILVEIRA Start: 07-28-2023 TRANSTHORACIC ECHO (TTE) COMPLETE EL PHIPPS CRISS Start: 07-28-2023 STRESS TEST ONLY EL MOISE SILVEIRA Start: 07-28-2023 Echo tthrc r-t 2d w/wom-mode compl spec&colr d El Silveira MD Work Phone: Start: 07-28-2023 Cv strs tst xers&/or rx cont ecg w/o i&r El Silveira MD Work Phone: Start: 07-17-2023 CT CARDIAC SCORING WO IV CONTRAST EL SILVEIRA Start: 07-17-2023 Ct heart no contrast quant eval coronry calcium El Silveira MD Work Phone: Start: 07-10-2023 End: 07-10-2023 Ecg routine ecg w/least 12 lds w/i&r El Silveira MD Work Phone: Start: 06-24-2023 Plain chest X-ray Start: 06-24-2023 SARS-CoV-2 & FLU Antigen (Rapid) Start: 06-18-2023 Urnls dip stick/tablet rgnt auto w/o microscopy Kevan Vaca PA-C Work Phone: Start: 05-04-2020 Mammography Carlos Hatch MD Work Phone: Appendectomy Kevan Vaca Work Phone: History of placement of stent for coronary artery disease Hx of heart artery stent El Silveira MD Work Phone: History of thyroidectomy S/P thyroidectom y Dr. Timothy Jade MD Procedure on back Kevan deleon Work Phone: Plan of Treatment Date Care Activity Detail Author Start: 06-01-2032 DTaP/Tdap/Td Vaccines (2 - Td or Tdap) DTaP/Tdap/Td Vaccines (2 - Td or Tdap) [facility] Start: 10-25-2025 End: 10-25-2025 Patient encounter procedure 10/25/2025 11:00 AM EST Office Visit [facility] [address] [place] [phone] El Mcbride MD [address] [place], [facility] [address] [place] [address] [facility] Start: 10-10-2025 End: 10-10-2025 Patient encounter procedure 10/10/2025 10:30 AM EST Appointment [facility] [address] [place] [address] [facility] Start: 08-02-2025 End: 08-02-2025 Patient encounter procedure 08/02/2025 10:00 AM EDT Office Visit [facility] [address] [place] [phone] Guillermina Rizzo DO [address] [facility] [place] [address] [facility] Start: 02-22-2025 LIPID SCREEN LIPID SCREEN [facility] Start: 01-15-2025 Medicare Annual Wellness Visit Medicare Annual Wellness Visit (AWV) [facility] Start: 10-26-2024 End: 10-26-2025 Holter monitor study 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 Or Event 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 PVC (premature ventricular contraction) Expected: 10/26/2024, Expires: 10/26/2025 [facility] Service Area Work Phone: Comment on above: Expected: 10/26/2024, Expires: Start: 10-26-2024 End: 10-26-2024 Patient encounter procedure 10/26/2024 10:45 AM EST Office Visit [facility] [address] [place] [phone] El Mcbride MD [address] [place], [facility] [address] [place], [place] [id number] [facility] Building Start: 07-16-2024 End: 07-16-2024 Patient encounter procedure 07/16/2024 9:20 AM EDT Office Visit [facility] [address] [place] [phone] ObGuillermina galvez, DO [address] [facility] [place] [address] [facility] Start: 07-13-2024 End: 07-13-2024 Patient encounter procedure 07/13/2024 10:20 AM EDT Office Visit [facility] [address] [place] [phone] ObGuillermina galvez, DO [address] [facility] [place] [address] [facility] Start: 06-06-2024 COVID-19 Vaccine ( season) COVID-19 Vaccine ( season) [facility] Start: 06-06-2024 COVID-19 Vaccine ( season) COVID-19 Vaccine ( season) [facility] Start: 06-06-2024 Influenza vaccination [facility] Start: 04-27-2024 End: 04-27-2024 Patient encounter procedure 04/27/2024 10:15 AM EDT Office Visit [facility] Building [address] [place] [address] El Mcbride MD [address] [facility] Level, [address] [address] [facility] Building Start: 02-02-2024 End: 02-02-2024 Clinical Support 02/02/2024 10:00 AM EDT Clinical Support [facility] [address] [place] [phone] [facility] Start: 01-30-2024 End: 01-30-2024 Clinical Support 01/30/2024 10:00 AM EDT Clinical Support [place] [id number] [address] [phone] [facility] Start: 01-28-2024 End: 01-28-2024 Clinical Support 01/28/2024 10:00 AM EDT Clinical Support [address] [phone] [facility] Start: 01-26-2024 End: 01-26-2024 Clinical Support 01/26/2024 10:00 AM EDT Clinical Support [address] [phone] [facility] Start: 01-23-2024 End: 01-23-2024 Clinical Support 01/23/2024 10:00 AM EDT Clinical Support [address] [phone] [facility] Start: 01-21-2024 End: 01-21-2024 Clinical Support 01/21/2024 10:00 AM EDT Clinical Support [address] [phone] [facility] Start: 01-19-2024 End: 01-19-2024 Clinical Support 01/19/2024 10:00 AM EDT Clinical Support [address] [phone] [facility] Start: 01-16-2024 End: 01-16-2024 Clinical Support 01/16/2024 10:00 AM EDT Clinical Support [address] [phone] [facility] Start: 12-03-2023 End: 12-03-2023 Patient encounter procedure [facility] Start: 11-28-2023 Medicare Annual Wellness Visit Medicare Annual Wellness Visit (AWV) [facility] Start: 10-31-2023 End: 10-31-2023 Clinical Support 10/31/2023 9:30 AM EST Clinical Support [facility] [address] [place] [address] [facility] Start: 10-30-2023 End: 10-30-2023 Patient encounter procedure 10/30/2023 1:00 PM EST Office Visit [facility] Building [address] [place] [address] El Mcbride MD [address], [facility] [address] [place], [place] [phone] [facility] Start: 09-09-2023 End: 09-09-2023 Patient encounter procedure 09/09/2023 10:45 AM EST Office Visit [facility] Building [address] [place] [phone] El Mcbride MD [address], [facility] [address] [place] [address] [facility] Start: 07-10-2023 End: 07-10-2025 Cardiac stress study Procedure Stress Test Cardiac Services Routine Shortness of breath Expected: 07/10/2023 (Approximate), Expires: 07/10/2025 [facility] Work Phone: Comment on above: Expected: 07/10/2023 (Approximate), Expi res: 07/10/2025 Start: 07-10-2023 End: 07-10-2024 CT for calcium scoring WO contrast and CTA W contrast IV Heart and coronary arteries CT cardiac scoring wo IV contrast Imaging Routine Shortness of breath Expected: 07/10/2023, Expires: 07/10/2024 [facility] Work Phone: Comment on above: Expected: 07/10/2023, Expires: Start: 07-10-2023 End: 07-10-2023 Patient encounter procedure 07/10/2023 2:00 PM EDT Office Visit [facility] Building [address] [place] [address] El Mcbride MD [address], [place] [address] [place] [address] [facility] Start: 07-10-2023 End: 07-10-2025 US Heart Transthoracic Transthoracic Echo (TTE) Complete Echocardiography Routine Shortness of breath Expected: 07/10/2023 (Approximate), Expires: 07/10/2025 [facility] Work Phone: Comment on above: Expected: 07/10/2023 (Approximate), Expi res: 07/10/2025 Start: 06-26-2023 [facility] Start: 06-26-2023 Blood chemistry [facility] Start: 06-24-2023 [facility] Start: 06-18-2023 End: 06-25-2023 Bacteria identified in Urine by Culture [facility] Work Phone: Comment on above: Expected: 06/18/2023 (Approximate), Expi res: 06/25/2023 Start: 06-18-2023 End: 06-18-2024 CBC panel - Blood by Automated count CBC Lab Routine Primary hypertension Encounter for lipid screening for cardiovascular disease Expected: 06/18/2023 (Approximate), Expires: 06/18/2024 [facility] Work Phone: Comment on above: Expected: 06/18/2023 (Approximate), Expi res: 06/18/2024 Start: 06-18-2023 End: 06-18-2024 Comprehensive metabolic 2000 panel - Serum or Plasma Comprehensive Metabolic Panel Lab Routine Primary hypertension Encounter for lipid screening for cardiovascular disease Expected: 06/18/2023 (Approximate), Expires: 06/18/2024 [facility] Work Phone: Comment on above: Expected: 06/18/2023 (Approximate), Expi res: 06/18/2024 Start: 06-18-2023 End: 06-18-2024 Lipid 1996 panel - Serum or Plasma Lipid Panel Lab Routine Primary hypertension Encounter for lipid screening for cardiovascular disease Expected: 06/18/2023 (Approximate), Expires: 06/18/2024 [facility] Work Phone: Comment on above: Expected: 06/18/2023 (Approximate), Expi res: 06/18/2024 Start: 06-18-2023 End: 06-18-2024 TSH with reflex to Free T4 if abnormal TSH with reflex to Free T4 if abnormal Lab Routine Primary hypertension Encounter for lipid screening for cardiovascular disease Expected: 06/18/2023 (Approximate), Expires: 06/18/2024 [facility] Work Phone: Comment on above: Expected: 06/18/2023 (Approximate), Expi res: 06/18/2024 Start: 06-06-2023 COVID-19 Vaccine ( season) COVID-19 Vaccine ( season) [facility] Start: 06-06-2023 Influenza vaccination [facility] Start: 02-22-2023 DIABETES SCREEN DIABETES SCREEN [facility] Start: 11-27-2022 FUV, Provider: Kevan Vaca, Status: Pen, Time: 9:30 AM FUV, Provider: Kevan Vaca, Status: Pen, Time: 9:30 AM [facility] Work Phone: Start: 06-06-2022 Influenza vaccination INFLUENZA (#1) [facility] Start: 11-26-2021 FUV, Provider: Kevan Vaca, Status: Pen, Time: 9:30 AM FUV, Provider: Kevan Vaca, Status: Pen, Time: 9:30 AM [facility] Work Phone: Start: 11-22-2021 COVID-19 Vaccine (4 - Booster for Pfizer series) COVID-19 Vaccine (4 - Booster for Pfizer series) [facility] Start: 11-22-2021 COVID-19 Vaccine (4 - Pfizer series) COVID-19 Vaccine (4 - Pfizer series) [facility] Start: 10-06-2021 ADVANCE DIRECTIVE DISCUSSION ADVANCE DIRECTIVE DISCUSSION [facility] Start: 2021 BONE DENSITY BONE DENSITY [facility] Start: 2021 Pneumococcal Vaccine: 65+ Years (1 - PCV) Pneumococcal Vaccine: 65+ Years (1 - PCV) [facility] Start: 2021 PNEUMOCOCCAL: 65+ (1 - PCV) PNEUMOCOCCAL: 65+ (1 - PCV) [facility] Start: 05-04-2021 Mammography MAMMOGRAM [facility] Start: 05-04-2021 Screening for malignant neoplasm of breast Mammogram [facility] Start: 2016 RSV High Risk: (Elderly (60+) or Population) (1 - Risk 60-74 years 1-dose series) RSV High Risk: (Elderly (60+) or Population) (1 - Risk 60-74 years 1-dose series) [facility] Start: 2016 RSV patients and/or patients aged 60+ years (1 - 1-dose 60+ series) RSV patients and/or patients aged 60+ years (1 - 1-dose 60+ series) [facility] Start: 2006 SHINGRIX VACCINE (1 of 2) SHINGRIX VACCINE (1 of 2) [facility] Start: 2006 Zoster Vaccines (1 of 2) Zoster Vaccines (1 of 2) [facility] Start: 2001 COLOGUARD (FIT-DNA) COLOGUARD (FIT-DNA) [facility] Start: 2001 Colonoscopy COLONOSCOPY [facility] Start: 2001 COLORECTAL CANCER SCREENING COLORECTAL CANCER SCREENING [facility] Start: [address] COLONOGRAPHY [facility] Start: 2001 FECAL OCCULT BLOOD FECAL OCCULT BLOOD [facility] Start: 2001 SIGMOIDOSCOPY SIGMOIDOSCOPY [facility] Start: 1996 Screening for malignant neoplasm of breast Mammogram [facility] Start: 1975 Pneumococcal vaccination Pneumococcal Vaccine (1 of 2 - PCV) [facility] Start: 1975 Urine microalbumin profile DTAP,TDAP,TD (1 - Tdap) [facility] Start: 1974 Diabetes mellitus screening Diabetes Screening [facility] Start: 1974 HEPATITIS C SCREENING HEPATITIS C SCREENING [facility] Start: 1974 Hepatitis C screening Hepatitis C Screening [facility] Start: 1974 HIV SCREENING HIV SCREENING [facility] Start: 1968 Adult depression screening assessment DEPRESSION SCREENING [facility] Start: 1962 Pneumococcal Vaccine: 65+ Years (1 - PCV) Pneumococcal Vaccine: 65+ Years (1 - PCV) [facility] Start: 1962 Pneumococcal Vaccine: 65+ Years (1 of 2 - PCV) Pneumococcal Vaccine: 65+ Years (1 of 2 - PCV) [facility] Start: 02-14-1957 COVID-19 VACCINE (#1) COVID-19 VACCINE (#1) [facility] Start: 1956 Lipid panel Lipid Panel [facility] Start: 1956 Medicare Annual Wellness Visit Medicare Annual Wellness Visit (AWV) [facility] Start: 1956 Screening for malignant neoplasm of colon [facility] Start: 1956 Screening for osteoporosis Bone Density Scan [facility] Anion gap measurement [facility] BUN/Creatinine ratio [facility] Calcium [Mass/volume ] in Serum or Plasma [facility] Carbon dioxide, tota l [Moles/volume] in Serum or Plasma [facility] Chloride [Moles/volu me] in Serum or Plasma [facility] Creatinine [Moles/vo lume] in Serum or Plasma [facility] End: 10-16-2023 Electrocardiogram 12 Lead [facility] Service A my Work Phone: Comment on above: Once for 1 Occurrences starting 10/16/19 24 until 10/16/2023 Glucose [Mass/volume ] in Serum or Plasma [facility] Hematocrit [Volume Fraction] of Blood [facility] Hemoglobin [Mass/vol ume] in Blood [facility] LEFT HEART CATH LEFT HEART CATH Atherosclerosis [facility] Work Phone: Leukocytes [#/volume ] in Blood [facility] Mean corpuscular hemoglobin concentration determination [facility] Mean corpuscular hemoglobin determination [facility] Measurement of renal function [facility] Neutrophil count [facility] Neutrophil percent differential count [facility] Patient Education [facility] Work Phone: Patient referral [facility] Work Phone: Platelets [#/volume] in Blood [facility] Potassium [Moles/vol ume] in Serum or Plasma [facility] Red blood cell count [facility] Red cell distributio n width determination [facility] Sodium [Moles/volume ] in Serum or Plasma [facility] Urea nitrogen [Mass/volume] in Serum or Plasma [facility] XR Foot GE 3 Views [facility] Immunizations Immunization Date Immunization Notes Care Provider Fa tony 06-01-2022 tetanus toxoid, redu teri diphtheria toxoid, and acellular pertussis vaccine, adsorbed [facility] 09-27-2021 Pfizer-BioNTech COVID-19 Vacc 30 MCG/0.3ML Intramuscular Suspension Kevan Vaca Work Phone: [facility] Work Phone: 09-07-2021 influenza, injectabl e, quadrivalent, preservative free Kevan Vaca Work Phone: [facility] Work Phone: 09-07-2021 influenza virus vaccine, unspecified formulation Kevan Vaca CO-C Work Phone: [facility] Work Phone: 01-05-2021 Pfizer-BioNTech COVID-19 Vacc 30 MCG/0.3ML Intramuscular Suspension Kevan Garg Newbill Work Phone: [facility] Work Phone: Comment on above: Series: 12-07-2020 Pfizer-BioNTech COVID-19 Vacc 30 MCG/0.3ML Intramuscular Suspension Kevan Garg [place] Work Phone: [facility] Work Phone: Comment on above: Series: 07-07-2020 influenza, injectabl e, quadrivalent, preservative free El Silveira MD Work Phone: [facility] Work Phone: 07-07-2020 influenza, seasonal, injectable Kevan Vaca Work Phone: [facility] Work Phone: Comment on above: Series: Payers Date Payer Category Payer Self-pay [id number] 2022 Medicare HUMANA MEDICARE HUMANA GOLD CHOICE [id number] 2022-Present [address] [place] [id number]. [id number] 2022 Medicare (Managed Care) HUMANA G OLD CHOICE [id number]. [id number] 2022 Private Health Insurance CHOICEC ARE HUMANA CHOICECARE HUMANA [id number] 2022-Present [address] [address] [place] [address] 1.2.840.109415.1.13.647. 2.7.3.919873.315 2022 Private Health Insurance [id number] 2019 Unknown MMO MMO SUPERMED PLUS [id number] 2019-Present [phone] [address] [place] [address] O [id number] 1.2.840.826908.1.13.159. 2.7.3.607581.315 2017 Unknown 1955 Unknown [id number] 2.16.840.1.073978.3.579. 2.356 1956 Unknown [id number] 2.16.840.1.443122.3.579. 2.124 1956 Unknown [id number] 2.16.840.1.689696.3.579. 2.124 1956 Unknown [id number] 2.16.840.1.310511.3.579. 2.1242 1956 Unknown [id number] 2.16.840.1.968023.3.579. 2.124 1956 Unknown [id number] 2.16.840.1.453828.3.579. 2.1242 1956 Unknown [id number] 2.16.840.1.149945.3.579. 2.124 1956 Unknown [id number] 2.16.840.1.753603.3.579. 2.124 1956 Unknown [id number] 2.16.840.1.597194.3.579. 2.124 1956 Unknown [id number] 2.16.840.1.887527.3.579. 2.124 1956 Unknown [id number] 2.16.840.1.569504.3.579. 2.124 1956 Unknown [id number] 2.16.840.1.258823.3.579. 2.1242 1956 Unknown [id number] 2.16.840.1.065174.3.579. 2.124 1956 Unknown [id number] 2.16.840.1.024218.3.579. 2.1243 1956 Unknown [id number] 2.16.840.1.368646.3.579. 2.3 1956 Unknown [id number] 2.16.840.1.586225.3.579. 2.1243 1956 Unknown [id number] 2.16.840.1.395782.3.579. 2.1242 1956 Unknown [id number] 2.16.840.1.715671.3.579. 2.124 1956 Unknown [id number] 2.16.840.1.414628.3.579. 2.1242 1956 Unknown [id number] 2.16.840.1.680494.3.579. 2.1242 1956 Unknown [id number] 2.16.840.1.631926.3.579. 2.1242 1956 Unknown [id number] 2.16.840.1.630415.3.579. 2.3 1956 Unknown [id number] 2.16.840.1.116510.3.579. 2.1242 1956 Unknown [id number] 2.16.840.1.461342.3.579. 2.3 1956 Unknown [id number] 2.16.840.1.446486.3.579. 2.1242 1956 Unknown [id number] 2.16.840.1.788457.3.579. 2.1242 1956 Unknown [id number] 2.16.840.1.242266.3.579. 2.1242 1956 Unknown [id number] 2.16.840.1.523881.3.579. 2.1242 1956 Unknown [id number] 2.16.840.1.185162.3.579. 2.1242 1956 Unknown [id number] 2.16.840.1.768376.3.579. 2.1243 1956 Unknown [id number] 2.16.840.1.758084.3.579. 2.1242 1956 Unknown [id number] 2.16.840.1.494419.3.579. 2.1242 1956 Unknown [id number] 2.16.840.1.966992.3.579. 2.1242 1956 Unknown [id number] 2.16.840.1.520420.3.579. 2.1242 1956 Unknown [id number] 2.16.840.1.643640.3.579. 2.1242 1956 Unknown [id number] 2.16.840.1.901592.3.579. 2.1242 1956 Unknown [id number] 2.16.840.1.143396.3.579. 2.1242 1956 Unknown [id number] 2.16.840.1.037799.3.579. 2.1242 1956 Unknown [id number] 2.16.840.1.985230.3.579. 2.1242 1956 Unknown [id number] 2.16.840.1.354318.3.579. 2.1242 1956 Unknown [id number] 2.16.840.1.018988.3.579. 2.1242 1956 Unknown [id number] 2.16.840.1.857710.3.579. 2.1242 1956 Unknown [id number] 2.16.840.1.779791.3.579. 2.1242 1956 Unknown [id number] 2.16.840.1.446421.3.579. 2.1242 1956 Unknown [id number] 2.16.840.1.793498.3.579. 2.1243 1956 Unknown [id number] 2.16.840.1.721650.3.579. 2.1244 1956 Unknown [id number] 2.16.840.1.073295.3.579. 2.1244 Medicare [id number] Unknown [id number] 2.16.840.1.371612.3.579. 2.462 Unknown [id number] 2.16.840.1.667259.3.579. 2.462 Unknown [id number] 2.16.840.1.402286.3.579. 2.462 Unknown [id number] 2.16.840.1.111996.3.579. 2.462 Unknown [id number] 2.16.840.1.916481.3.579. 2.462 Unknown [id number] 2.16.840.1.876127.3.579. 2.462 Social History Date Type Detail Facility Start: 02-13-2023 End: 01-15-2024 Patient consumes caffeinated coffee Patient consumes caffeinated coffee [facility] Work Phone: Start: 02-11-2011 End: 02-07-2025 Tobacco smoking status NHIS Never smoked tobacco [facility] Work Phone: Start: 07-11-2014 Alcohol intake Current non-drinker of alcohol (finding) [facility] Start: 1955 Sex Assigned At Not on file [facility] Start: 06-01-2022 End: 06-24-2023 Tobacco smoking status MOIS Unknown if ever smoked [facility] Start: 1955 Sex Assigned At Female [facility] Start: 02-13-2023 Tobacco use and exposure Smokeless tobacco non-user [facility] Work Phone: Start: 02-13-2023 End: 10-16-2023 Alcohol intake Current drinker of alcohol (finding) [facility] Work Phone: Start: 02-13-2023 End: 01-15-2024 Tobacco use panel [facility] Work Phone: Start: 02-13-2023 Alcohol Comment very rarely [facility] Work Phone: Start: 02-03-2023 End: 10-26-2024 Exposure to SARS-CoV-2 (event) Not sure [facility] Start: 10-30-2023 End: 10-26-2024 Alcohol intake Ex-drinker (finding) [facility] Work Phone: Sexual Orientation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 rarely Drug use: Never Physical Exam ED Triage Vitals Temperature Heart Rate Respirations BP 03/23/24 2220 03/23/24 2220 03/23/24 22203/23/24 221 36.9 C (98.4 F) 80 18 177/87 Pulse Ox Temp Source Heart Rate Source Patient Position 03/23/24220903/23/24221903/23/242219 -- 98 % Temporal Monitor BP Location FiO2 (%) -- -- Physical Exam Vitals and nursing note reviewed. Constitutional: General: She is not in acute distress. Appearance: Normal appearance. She is normal weight. She is not ill-appearing, toxic-appearing or diaphoretic. Comments: Appears uncomfortable and is holding her head slightly tilted to the left in a position of comfort. HENT: Head: Normocephalic and atraumatic. Nose: Nose normal. No rhinorrhea. Neck: Vascular: No carotid bruit. Comments: Trachea is midline. Patient has easily reproducible tenderness to palpation even with light touch over the distribution of the right posterior trapezius muscle. No midline tenderness with negative Nexus criteria. Cardiovascular: Rate and Rhythm: Normal rate and regular rhythm. Heart sounds: No murmur heard. Pulmonary: Effort: Pulmonary effort is normal. Breath sounds: Normal breath sounds. No wheezing. Musculoskeletal: General: Normal range of motion. Cervical back: Normal range of motion. Tenderness present. No rigidity. Lymphadenopathy: Cervical: No cervical adenopathy. Skin: General: Skin is warm and dry. Findings: No rash. Comments: No zoster rashes noted Neurological: General: No focal deficit present. Mental Status: She is alert and oriented to person, place, and time. Mental status is at baseline. Psychiatric: Mood and Affect: Mood normal. Behavior: Behavior normal. Thought Content: Thought content normal. Judgment: Judgment normal. ED Course & MDM Diagnoses as of 03/23/242226 Trapezius muscle spasm Medical Decision Making Patient presents secondary to muscular pain to the posterior right trapezius muscle. There is no history of injury and the patient has no peripheral neuropathic type symptoms. Differential considerations would include, but not limited to, muscle sprain versus strain. I feel she can be treated conser vatively with outpatient follow-up. Prescriptions for tramadol and cyclobenzaprine and she will be given a dose of cyclobenzaprine here as well as an injection of IM Toradol. I do not wish to place the patient on NSAIDs given that she is already anticoagulated due to her cardiac history. Limit activity as tolerated and recommended alternating heat with ice over the affected area. Return at anytime if worse. Procedure Procedures Richard Keyes DO 03/23/242229 documented in this [facility] Work Phone: [phone]) 723-917506-18-2024 Physician Emergency department Note* Richard Keyes DO - 03/23/2024 10:08 PM EDT HPI No chief complaint on file. Patient presents to the emergency department to be evaluated for right-sided neck pain. She states that this began approximately 24 hours ago. No history of trauma of any kind. Has used [id number] Tylenol which has not helped very much. Denies chest pain or shortness of breath. No other symptoms reported. 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; Laterality: N/A; 9-930 SECTION, CLASSIC OTHER SURGICAL HISTORY 08/22/2021 Appendectomy OTHER SURGICAL HISTORY 08/22/2021 Back surgery THROAT SURGERY goiter removed Family History Problem Relation Name Age of Onset Hypertension Mother Diabetes Mother Heart disease Father Stroke Father CVA Diabetes Father Hypertension Father Other (cardiac disorder) Father Social History Tobacco Use Smoking status: Never Smokeless tobacco: Never Vaping Use Vaping status: Never Used Substance Use Topics Alcohol use: Not Currently Comment: very rarely Drug use: Never Physical Exam ED Triage Vitals Temperature Heart Rate Respirations BP 03/23/24 2220 03/23/24 2220 03/23/24 22203/23/24 221 36.9 C (98.4 F) 80 18 177/87 Pulse Ox Temp Source Heart Rate Source Patient Position 03/23/24 2210 03/23/24 2220 03/23/24 222 -- 98 % Temporal Monitor BP Location FiO2 (%) -- -- Physical Exam Vitals and nursing note reviewed. Constitutional: General: She is not in acute distress. Appearance: Normal appearance. She is normal weight. She is not ill-appearing, toxic-appearing or diaphoretic. Comments: Appears uncomfortable and is holding her head slightly tilted to the left in a position of comfort. HENT: Head: Normocephalic and atraumatic. Nose: Nose normal. No rhinorrhea. Neck: Vascular: No carotid bruit. Comments: Trachea is midline. Patient has easily reproducible tenderness to palpation even with light touch over the distribution of the right posterior trapezius muscle. No midline tenderness with negative Nexus criteria. Cardiovascular: Rate and Rhythm: Normal rate and regular rhythm. Heart sounds: No murmur heard. Pulmonary: Effort: Pulmonary effort is normal. Breath sounds: Normal breath sounds. No wheezing. Musculoskeletal: General: Normal range of motion. Cervical back: Normal range of motion. Tenderness present. No rigidity. Lymphadenopathy: Cervical: No cervical adenopathy. Skin: General: Skin is warm and dry. Findings: No rash. Comments: No zoster rashes noted Neurological: General: No focal deficit present. Mental Status: She is alert and oriented to person, place, and time. Mental status is at baseline. Psychiatric: Mood and Affect: Mood normal. Behavior: Behavior normal. Thought Content: Thought content normal. Judgment: Judgment normal. ED Course & MDM Diagnoses as of 03/23/242226 Trapezius muscle spasm Medical Decision Making Patient presents secondary to muscular pain to the posterior right trapezius muscle. There is no history of injury and the patient has no peripheral neuropathic type symptoms. Differential considerations would include, but not limited to, muscle sprain versus strain. I feel she can be treated conser vatively with outpatient follow-up. Prescriptions for tramadol and cyclobenzaprine and she will be given a dose of cyclobenzaprine here as well as an injection of IM Toradol. I do not wish to place the patient on NSAIDs given that she is already anticoagulated due to her cardiac history. Limit activity as tolerated and recommended alternating heat with ice over the affected area. Return at anytime if worse. Procedure Procedures Richard Keyes DO 03/23/242229 [facility] Work Phone: [phone] History of Present illness Narrative* Guillermina Rizzo DO - 01/15/2024 11:40 AM EDT Chief Complaint: Medicare Wellness Exam/Comprehensive Problem Focused Follow Up and Physical Exam HPI: Patient is here today for MWV. Pt had a cardiac stent for Active Problem List Patient Active Problem List Diagnosis Hypertension Borderline glaucoma with ocular hypertension Eczematous dermatitis of eyelid Laceration of right heel Lumbosacral neuritis Meibomianitis Punctate keratitis Atherosclerosis Occlusion of left anterior descending (LAD) artery ([facility]) Obesity, morbid ([facility]) Comprehensive Medical/Surgical/Social/Family History Past Medical History: Diagnosis Date Hypertension Personal history of other diseases of the circulatory system History of hypertension Past Surgical History: Procedure Laterality Date CARDIAC CATHETERIZATION N/A 10/16/2023 Procedure: Left Heart Cath; Surgeon: El Silveira MD; 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;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; Laterality: N/A; 9-930 SECTION, CLASSIC OTHER SURGICAL HISTORY 08/22/2021 Appendectomy OTHER SURGICAL HISTORY 08/22/2021 Back surgery THROAT SURGERY goiter removed Social History Tobacco Use Smoking status: Never Smokeless tobacco: Never Vaping Use Vaping status: Never Used Substance Use Topics Alcohol use: Not Currently Comment: very rarely Drug use: Never Family History Problem Relation Name Age of Onset Hypertension Mother Diabetes Mother Heart disease Father Stroke Father CVA Diabetes Father Hypertension Father Other (cardiac disorder) Father Allergies and Medications Peanut, Augmentin [amoxicillin-pot clavulanate], Hydrocodone-acetaminophen, Penicillins, Propoxyphene n-acetaminophen, Propoxyphene-acetaminophen, and Sulfamethoxazole-trimethoprim Current Outpatient Medications on File Prior to Visit Medication Sig Dispense Refill amLODIPine (Norvasc) 5 mg tablet TAKE 1 TABLET BY MOUTH EVERY DAY DIRECTED 90 tablet 3 aspirin 81 mg chewable tablet Chew 1 tablet (81 mg) once daily. 30 tablet 11 atorvastatin (Lipitor) 40 mg tablet Take 1 tablet (40 mg) by mouth once daily. 30 tablet 11 clopidogrel (Plavix) 75 mg tablet Take 1 tablet (75 mg) by mouth once daily. 90 tablet 3 lisinopriL-hydrochlorothiazide 20-12.5 mg tablet Take 1 tablet by mouth 2 times a day. No current facility-administered medications on file prior to visit. Medicare Wellness Questionnaire How have you been on Medicare less than a year ? No Have you had a Medicare Wellness exam before ? No Have you had any surgeries in the last year ? Yes Have you developed any new diseases in the last year ? No Have any close family members developed new diseases in the last year ? No Have you been to a the hospital in the last year ? Yes Do you take any pills or supplements other than those prescribed for you ? Yes Do you take any opiates for pain such as Tramadol, Percocet or [place] ? No How do you consider your overall health ?Good Have you ever used tobacco products ? No Do you drink alcohol ? No Have you ever used illegal drugs at anytime in your life including Marijuana ? No Which of the following describes your diet ?Heart healthy How many days per week on average do you exercise ? 3 days days Do you have any loss of hearing ? No Do you have hearing aids ? No Have you or others noted you have loss of memory ? No Do you need someone to assist you with any of the following ? None Do you need someone to assist you with any of the following ? None Have you fallen in the last 6 months ? No Do you have any of the following in your house ? None Do you have a living will ? No Do you have a durable power of [place] for health care decisions ? No Medications and Supplements prescribed by me and other practitioners or clinical pharmacist (such as prescriptions, OTC's, herbal therapies and supplements) were reviewed and documented in the medical record. Tobacco/Alcohol/Opioid use, as well as Illicit Drug Use was screened for/reviewed and documented inSocial History section and medication list as appropriate Activities of Daily Living In your present state of health, do you have any difficulty performing the following activities?: Preparing food and eating?: No Bathing yourself: No Getting dressed: No Using the toilet:No Moving around from place to place: No In the past year have you fallen or had a near fall?:No Depression Screen (Note: if answer to either of the following is Yes, then a more complete depression screening is indicated) Q1: Over the past two weeks, have you felt down, depressed or hopeless? No Q2: Over the past two weeks, have you felt little interest or pleasure in doing things? No Current exercise habits: Home exercise routine includes treadmill. Dietary issues discussed: Yes Hearing difficulties: No Safe in current home environment: yes Visual Acuity assessed: no Cognitive Impairment assessed: yes Advance directives Advanced Care Planning (including a Living Will, Healthcare POA, as well as specific end of life choices and/or directives), was discussed for approximately 5 minutes with the patient and/or surrogate, voluntarily, and documented in the medical record. Cardiac Risk Assessment Cardiovascular risk was discussed and, if needed, lifestyle modifications recommended, including nutritional choices, exercise, and elimination of habits contributing to risk. We agreed on a plan to reduce the current cardiovascular risk based on above discussion as needed. Aspirin use/disuse was discussed after reviewing the updated guidelines below: Consider low dose Aspirin (81-162 mg) use if the benefit for cardiovascular disease prevention outweighs risk for bleeding complications. In general, low dose ASA should be considered: In patients WITHOUT prior CA/stroke/PAD (primary prevention): a. Age <60: Use if 10-year cardiovascular disease risk >20%, with discussion of risks and benefits with patient b. Age 60-<70: Use if 10-year cardiovascular disease risk >20% and low bleeding (e.g., gastrointenstinal) risk, with discussion of risks and benefits with patient c. Age >=70: Do not use In patients WITH prior CA/stroke/PAD (secondary prevention): Generally use unless extremely high bleeding (e.g., gastrointenstinal) risk, with discussion of risks and benefits with patient ROS otherwise negative aside from what was mentioned above in HPI. Vitals BP 133/83 Pulse 60 Ht 1.575 m (5' 2.01) Wt 87.1 kg (192 lb) BMI 35.11 kg/m Body mass index is 35.11 kg/m . Physical Exam Gen: Alert, NAD HEENT: PERRLA, EOMI, conjunctiva and sclera normal in appearance. Neck: Supple with FROM; No masses/nodes palpable; Thyroid nontender and without nodules; No ELIZABETH Respiratory: Lungs CTAB Cardiovascular: Heart RRR. No M/R/G. Peripheral pulses equal bilaterally Abdomen: Soft, nontender, BS present throughout; No R/G/R; No HSM or masses palpated Extremities: FROM all extremities; Muscle strength grossly normal with good tone Neuro: CN II-XII intact; Reflexes 2+/2+; Gross motor and sensory intact Skin: No suspicious lesions present Assessment and Plan: Problem List Items Addressed This Visit Hypertension - Primary Obesity, morbid (CMS/HCC) Immunizations Flu declines COVID received PNA recommended Shingles recommended RSV recommended Colon cancer screening declines Mammo 2020, declines to update Pap NA DeXA CAD s/p PCI to LAD, HTN, HLD - following with cardiology - continue norvasc 5mg po daily - continue statin - continue plavix - continue lisinopril-hctz 20-12.5mg po daily During the course of the visit the patient was educated and counseled about age appropriate screening and preventive services. Completed preventive screenings were documented in the chart and orders were placed for outstanding screenings/procedures as documented in the Assessment and Plan. Patient Instructions (the written plan) was given to the patient at check out. Guillermina Rizzo DO documented in this [facility] Work Phone: [phone] 343-357301-25-2024 History of Present illness Narrative* El Silveira MD - 10/30/2023 1:00 PM EST Chief Complaint Patient presents with Post-Cath HPI: I was requested by Dr. Vaca to evaluate this patient in consultation for cardiac assessment. Shanna Garcia is a 68 y.o. year old non-smoker female patient with past medical history significant forhypertension, S/P appendectomy, S/P back surgery, coming for cardiovascular assessment. She complains of shortness of breath and chest tightness for 3 weeks. Her history dates back 3 weeks ago when she was in a swimming pool for 6 hours, started feeling metallic taste on her mouth and had shortnessof breath on the upcoming days. 1 week ago, she was pushing the trash out of her home and felt SOB on exertion associated with chest tightness, that improved while resting. She was diagnosed with urinary infection and treated with antibiotics accordingly. She believes that her symptoms are partially explained by volume overloading for voluntary increasing in water intake to tackle the UTI. She denies palpitations, leg edema, lightheadedness, headaches, fever, chills, orthopnea, paroxysmal nocturnal dyspnea or syncope. Notably, her BP is usually on the higher side - ~140/80mmHg. The EKG today shows normal sinus rhythm with no signs of ACS. CXR showing cardiomegaly (long-term) Nuclear stress test is inconclusive for ischemia. Left Heart Catheterization (09/2023): 1. Left Coronary Artery system dominance (LCx). 2. Double Vessel Coronary Artery Disease. 3. Non-dominant RCA with 90% lesion. 4. Dominant LCx with non-obstructive lesions. 5. Severe obstruction in prox-mid LAD, heavily calcified diffuse 90% lesion in bifurcation with 1stand 2nd Dg. 6. S/P successful percutaneous coronary intervention to proximal-mid LAD using drug-eluting stent (ELSA) 2.75/24mm (post-dil 3.5mm) guided by intra-vascular ultrasound (IVUS). 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; Laterality: N/A; 90 SECTION, CLASSIC OTHER SURGICAL HISTORY 08/22/2021 Appendectomy OTHER SURGICAL HISTORY 08/22/2021 Back surgery THROAT SURGERY goiter removed Past Family History Family History Problem Relation Name Age of Onset Hypertension Mother Diabetes Mother Heart disease Father Stroke Father CVA Diabetes Father Hypertension Father Other (cardiac disorder) Father Allergy History Allergies Allergen Reactions Peanut Unknown Augmentin [Amoxicillin-Pot Clavulanate] GI Upset Hydrocodone-Acetaminophen Other vomiting Penicillins Unknown Propoxyphene N-Acetaminophen GI Upset Propoxyphene-Acetaminophen Unknown vomiting Sulfamethoxazole-Trimethoprim GI Upset Past Social History Social History Socioeconomic History Marital status: Spouse name: None Number of children: None Years of education: None Highest education level: None Occupational History None Tobacco Use Smoking status: Never Smokeless tobacco: Never Vaping Use Vaping Use: Never used Substance and Sexual Activity Alcohol use: Not Currently Comment: very rarely Drug use: Never Sexual activity: None Other Topics Concern None Social History Narrative None Social Determinants of Health Financial Resource Strain: Not on file Food Insecurity: Not on file Transportation Needs: Not on file Physical Activity: Not on file Stress: Not on file Social Connections: Not on file Intimate Partner Violence: Not on file Housing Stability: Not on file Social History Tobacco Use Smoking Status Never Smokeless Tobacco Never Review of Systems: Constitutional: not feeling poorly. Cardiovascular: no chest pain. Respiratory: no cough. Gastrointestinal: no change in bowel habits. Genitourinary: no dysuria. Objective Data: Last Recorded Vitals: Vitals: 10/30/23 1253 BP: 128/80 Pulse: 85 SpO2: 99% Weight: 89.5 kg (197 lb 4.8 oz) Height: 1.575 m (5' 2) Last Labs: CBC - 10/09/2023: 9:31 AM 7.3 13.1 248 41.0 CMP - 10/09/2023: 9:31 AM 9.0 _ _ --- _ _ _ _ _ PTT - No results in last year. _ _ _ No results found for: TROPHS, BNP, HGBA1C, LDLCALC, VLDL Patient Medications: Outpatient Encounter Medications as of 10/30/2023 Medication Sig Dispense Refill amLODIPine (Norvasc) 5 mg tablet TAKE 1 TABLET BY MOUTH EVERY DAY DIRECTED 90 tablet 3 aspirin 81 mg chewable tablet Chew 1 tablet (81 mg) once daily. 30 tablet 11 atorvastatin (Lipitor) 40 mg tablet Take 1 tablet (40 mg) by mouth once daily. 30 tablet 11 clopidogrel (Plavix) 75 mg tablet Take 1 tablet (75 mg) by mouth once daily. 90 tablet 3 lisinopriL-hydrochlorothiazide 20-12.5 mg tablet Take 1 tablet by mouth 2 times a day. No facility-administered encounter medications on file as of 10/30/2023. Physical Exam: General: alert, oriented and in no acute distress HEENT: NC/AT; EOMI; PERRLA, external ear is normal Neck: supple; no JVD Chest: CTAB; no wheezing CVS: regular rhythm, S1S2 normal, no murmurs Abdomen: Soft, NT/ND, no organomegaly Extremities: no clubbing/cyanosis/edema. Good healing access site Neuro: Grossly intact Psychiatric: Normal mood and affect Past Cardiology Results (Last 3 Years): EKG: ECG 12 lead 10/16/2023 Electrocardiogram 12 Lead 10/16/2023 ECG 12 lead STAT 10/16/2023 ECG 12 lead (Clinic Performed) 07/10/2023 ECG 12 Lead 07/10/2023 Echo: Echo Results: Transthoracic Echo (TTE) Complete 07/28/2023 [place] [address] [id number], TRANSTHORACIC ECHOCARDIOGRAM REPORT Patient Name: SHANNA GARCIA Reading Physician: [id number] Abraham Espinal MD Study Date: 07/28/2023 Ordering Provider: [id number] EL SILVEIRA MRN/PID: [id number] Fellow: Nurse: Yvonne Finn RN Date of /Age: 11 1955 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 Agitated saline used as a contrast agent for intraseptal flow evaluation and Definity used as a contrast agent for endocardial border definition. Total contrast used for this procedure was 2.00cc mL via IV push. PHYSICIAN INTERPRETATION: Left Ventricle: Left ventricular systolic function is normal, with an estimated ejection fraction of 60-65%. There are no regional wall motion abnormalities. The left ventricular cavity size is normal. Spectral Doppler shows a pseudonormal pattern of left ventricular diastolic filling. Left Atrium: The left atrium is normal in size. A bubble study using agitated saline was performed.Bubble study is negative. Right Ventricle: The right ventricle is normal in size. There is normal right ventricular global systolic function. Right Atrium: The right atrium was not well visualized. Aortic Valve: The aortic valve was not well visualized. There is no evidence of aortic valve regurgitation. The peak instantaneous gradient of the aortic valve is 13.5 mmHg. The mean gradient of the aortic valve is 8.0 mmHg. Mitral Valve: The mitral valve is normal in structure. There is no evidence of mitral valve regurgitation. Tricuspid Valve: The tricuspid valve was not well visualized. No evidence of tricuspid regurgitation. Pulmonic Valve: The pulmonic valve is not well visualized. The pulmonic valve regurgitation was notwell visualized. Pericardium: There is no pericardial effusion noted. Aorta: The aortic root is normal. Systemic Veins: The inferior vena cava appears to be of normal size. There is IVC inspiratory collapse greater than 50%. CONCLUSIONS: 1. Left ventricular systolic function is normal with a 60-65% estimated ejection fraction. 2. Spectral Doppler shows a pseudonormal pattern of left ventricular diastolic filling. QUANTITATIVE DATA SUMMARY: 2D MEASUREMENTS: Normal Ranges: Ao Root d: 3.40 cm (2.0-3.7cm) LAs: 3.90 cm (2.7-4.0cm) IVSd: 0.84 cm (0.6-1.1cm) LVPWd: 0.77 cm (0.6-1.1cm) LVIDd: 4.22 cm (3.9-5.9cm) LVIDs: 2.80 cm LV Mass Index: 54.4 g/m2 LV % FS 33.6 % LA VOLUME: Normal Ranges: LA Vol A4C: 22.3 ml (22+/-6mL/m2) LA Vol A2C: 18.2 ml LA Vol BP: 22.2 ml LA Vol Index A4C: 11.8ml/m2 LA Vol Index A2C: 9.6 ml/m2 LA Vol Index BP: 11.7 ml/m2 LA Area A4C: 11.5 cm2 LA Area A2C: 9.4 cm2 LA Major [place] A4C: 5.0 cm LA Major [place] A2C: 4.2 cm LA Volume Index: 11.5 ml/m2 LA Vol A4C: 21.8 ml LA Vol A2C: 18.2 ml LV SYSTOLIC FUNCTION BY 2D PLANIMETRY (MOD): Normal Ranges: EF-A4C View: 72.0 % (>=55%) EF-A2C View: 60.5 % EF-Biplane: 65.3 % LV DIASTOLIC FUNCTION: Normal Ranges: MV Peak E: 0.70 m/s (0.7-1.2 m/s) MV Peak A: 0.78 m/s (0.42-0.7 m/s) E/A Ratio: 0.90 (1.0-2.2) MV lateral e' 0.10 m/s MV medial e' 0.05 m/s MITRAL VALVE: Normal Ranges: MV DT: 197 msec (150-240msec) AORTIC VALVE: Normal Ranges: AoV Vmax: 1.84 m/s (<=1.7m/s) AoV Peak P.5 mmHg (<20mmHg) AoV Mean P.0 mmHg (1.7-11.5mmHg) LVOT Max Michael: 1.16 m/s (<=1.1m/s) AoV VTI: 37.80 cm (18-25cm) LVOT VTI: 23.10 cm LVOT Diameter: 1.80 cm (1.8-2.4cm) AoV Area, VTI: 1.56 cm2 (2.5-5.5cm2) AoV Area,Vmax: 1.60 cm2 (2.5-4.5cm2) AoV Dimensionless Index: 0.61 RIGHT VENTRICLE: RV Basal 3.79 cm RV Mid 2.75 cm RV Major 7.1 cm TAPSE: 16.9 mm RV s' 0.20 m/s [id number] Abraham Espinal MD Electronically signed on 07/28/2023 at 12:43:30 PM Final Cath: Cardiac catheterization - coronary 10/16/2023 CV NCDR CATHPCI V5 COLLECTION FORM Stress Test: Stress Test 07/28/2023 Cardiac Imaging: No results found for this or any previous visit from the past 1095 days. Assessment/Plan In summary, Mrs. Shanna Garcia is a 68 y.o. year old non-smoker female patient with past medical history significant for hypertension, S/P appendectomy, S/P back surgery, coming for cardiovascular assessment of SOB on exertion. Assessment # SOB on exertion / chest tightness - 3 weeks ago when she was in a swimming pool for 6 hours, started feeling metallic taste on her mouth and had shortness of breath on the upcoming days. 1 week ago, she was pushing the trash out of her home and felt SOB on exertion associated with chest tightness, that improved while resting. - She was diagnosed with urinary infection and treated with antibiotics accordingly. - She believes that her symptoms are partially explained by volume overloading for voluntary increasing in water intake to tackle the UTI. - The EKG today shows normal sinus rhythm with no signs of ACS. - CXR showing cardiomegaly. - The echocardiogram showed normal LVEF 60-65% with no wall motion abnormalities. Pseudonormal relaxation pattern of left ventricle diastolic filling. - CT calcium scoring is elevated 376. - Stress test is inconclusive for ischemia. - Left Heart Catheterization (09/2023): 1. Left Coronary Artery system dominance (LCx). 2. Double Vessel Coronary Artery Disease. 3. Non-dominant RCA with 90% lesion. 4. Dominant LCx with non-obstructive lesions. 5. Severe obstruction in prox-mid LAD, heavily calcified diffuse 90% lesion in bifurcation with 1stand 2nd Dg. 6. S/P successful percutaneous coronary intervention to proximal-mid LAD using drug-eluting stent (ELSA) 2.75/24mm (post-dil 3.5mm) guided by intra-vascular ultrasound (IVUS). - Keep ASA, Plavix, statin - Discuss beta-adelaida upon return. - Follow up in 6 months. # Hypertension - More controlled BP after increasing Lisinopril / hydrochlorothiazide - Keep Lisinopril/hydrochlorothiazide to 40/25mg dialy and keep Amlodipine 5mg daily. We have discussed the most common side effects of the prescribed medications, indications, drug interactions, risks, complications, and alternatives of medications/therapeutics were explained and discussed. The patient has been requested to monitor closely for any untoward side effects or complications of medications. The patient has been strongly advised to be compliant with the recommendations,all the questions and concerns have been addressed. The patient has been also instructed to call, to return sooner or to go to the emergency department if symptoms persist or get worsen. The patient voiced understanding and denies any further questions at this time. This note was transcribed using the [employer] Dictation system. There may be grammatical, punctuation,or verbiage errors that occur with voice recognition programs. Counseling greater than 50% of visit regarding all cardiac issues. Thank you for allowing me to participate in the care of this patient. Please do not hesitate to contact me with any further questions or concerns. El Silveira MD Cardiology documented in this [facility] Work Phone: [phone]) 884-927601-11-2024 Hospital Discharge instructions* Discharge Instructions* Tila Sneed, ELECTRONIC SYSTEMS SECURITY ASSESSMENT-HEEL LIFT GOUGER, DNP - 10/16/2023 12:42 PM EST Images from the original note were not included. CARDIAC CATHETERIZATION DISCHARGE INSTRUCTIONS FOR SUDDEN AND SEVERE CHEST PAIN, SHORTNESS OF BREATH, EXCESSIVE BLEEDING, SIGNS OF STROKE, OR CHANGES IN MENTAL STATUS YOU SHOULD CALL 911 IMMEDIATELY. If your provider has prescribed aspirin and/or clopidogrel (Plavix), or prasugrel (Effient), or ticagrelor (Brilinta), DO NOT STOP THESE MEDICATIONS for any reason without talking to your catering attendant first. If any of these were prescribed, you must take them every day without missing a single dose. If you are getting low on these medications, contact your provider immediately for a refill. FOR NEXT 24 HOURS - Upon discharge, you should return home and rest for the remainder of the day and evening. You do not have to stay on bed rest but should not be very active. It is recommended a responsible adult bewith you for the first 24 hours after the procedure. - No driving for 24 hours after procedure. Please arrange for someone to drive you home from the hospital today. - Do not drive, operate machinery, or use power tools for 24 hours after your procedure. - Do not make any legal decisions for 24 hours after your procedure. - Do not drink alcoholic beverages for 24 hours after your procedure. WOUND CARE *FOR FEMORAL (LEG) ACCESS* Avoid heavy lifting (over 10 pounds) for 7 days, squatting or excessive bending for 2 days, and strenuous exercise for 7 days. No submerged bathing, swimming, or hot tubs for the next 7 days, or until fully healed. Avoid sexual activity for 3-4 days until any groin discomfort has ceased. *FOR RADIAL (WRIST) ACCESS* No lifting more than 5 pounds or excessive use of the wrist for 24 hours - for example, treat your wrist as if it is sprained. Do not engage in vigorous activities (tennis, golf, bowling, weights) for at least 48 hours after the procedure. Do not submerge the wrist for 7 days after the procedure. You should expect mild tingling in your hand and tenderness at the puncture site for up to 3 days. - The transparent dressing should be removed from the site 24 hours after the procedure. Wash the site gently with soap and water. Rinse well and pat dry. Keep the area clean and dry. You may apply aBand-Aid to the site. Avoid lotions, ointments, or powders until fully healed. - You may shower the day after your procedure. - It is normal to notice a small bruise around the puncture site and/or a small grape sized or smaller lump. Any large bruising or large lump warrants a call to the office. - If bleeding should occur, lay down and apply pressure to the affected area for 10 minutes. If thebleeding stops notify your physician. If there is a large amount of bleeding or spurting of blood CALL [address] yourself to the hospital. - You may experience some tenderness, bruising or minimal inflammation. If you have any concerns, you may contact the Rocket Motor Mechanic or if any of these symptoms become excessive, contact your catering attendant or go to the emergency room. OTHER INSTRUCTIONS - You may take acetaminophen (Tylenol) as directed for discomfort. If pain is not relieved with acetaminophen (Tylenol), contact your doctor. - If you notice or experience any of the following, you should notify your doctor or seek medical attention Chest pain or discomfort Change in mental status or weakness in extremities. Dizziness, light headedness, or feeling faint. Change in the site where the procedure was performed, such as bleeding or an increased area of bruising or swelling. Tingling, numbness, pain, or coolness in the leg/arm beyond the site where the procedure was performed. Signs of infection (i.e. shaking chills, temperature > 100 degrees Fahrenheit, warmth, redness) in the leg/arm area where the procedure was performed. Changes in urination Bloody or black stools Vomiting blood Severe nose bleeds Any excessive bleeding - If you DO NOT have an appointment with your catering attendant within 2-4 weeks following your procedure, please contact their office. documented in this [facility] Work Phone: [phone]) 413-264501-11-2024 Miscellaneous Notes* Op Note - El Silveira MD - 10/16/2023 10:00 AM EST Left Heart Cath Operative Note Date: 10/16/2023 OR 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 Name: Shanna Garcia, : 1955, Age: 68 y.o., , Sex: female Diagnosis Pre-op Diagnosis * Atherosclerosis [I70.90] Post-op Diagnosis * Atherosclerosis [I70.90] Procedures Left Heart Cath 34500 - MD CATH PLMT L HRT & ARTS W/NJX & ANGIO IMG S&I Surgeons * El Silveira - Primary Resident/Fellow/Other Career And Guidance Counselor: Surgeon(s) and Role: Procedure Summary Anesthesia: Moderate Sedation ASA: ASA status not filed in the log. Anesthesia Staff: No anesthesia staff entered. Estimated Blood Loss: 05mL Intra-op Medications: * Intraprocedure medication information is unavailable because the case startand end events have not been set * Intraprocedure I/O Totals None Specimen: No specimens collected Staff: Devops: Sarah Velazquez RN; Jessica Clark RN Drains and/or Catheters: * None in log * Tourniquet Times: Implants: Implants Type Name Action Serial No. Stent STENT, SYNERGY XD, MR US, 2.75 X 24MM - [id number] Implanted Findings: Severe lesion proximal-mid LAD Indications: Shanna Garcia is an 68 y.o. female who is having surgery for Atherosclerosis [I70.90]. The patient was seen in the preoperative area. The risks, benefits, complications, treatment options, non-operative alternatives, expected recovery and outcomes were discussed with the patient. The possibilities of reaction to medication, pulmonary aspiration, injury to surrounding structures, bleeding, recurrent infection, the need for additional procedures, failure to diagnose a condition, and creating a complication requiring transfusion or operation were discussed with the patient. The patient concurred with the proposed plan, giving informed consent. The site of surgery was properly noted/marked if necessary per policy. The patient has been actively warmed in preoperative area. Procedure Details: Procedure: - Left Heart Catheterization - Percutaneous Coronary Intervention to prox-mid LAD with Drug-eluting Stent implantation, guided by IVUS R radial artery access with 6F sheath. Hemodynamic measurements. S/P Left heart catheterization (LHC) using JR 6F guide catheter showed: - Left Coronary Artery system dominance (LCx) - Double Vessel Coronary Artery Disease - Non-dominant RCA with 90% lesion - Prox-mid LAD with diffuse 90% disease - Dominant LCx with non-obstructive coronary artery disease Significant coronary artery disease with severe obstruction in the prox-mid LAD, heavily calcified 90% lesion. Heparinization 100ui/Kg. ACT > 250. S/P successful percutaneous coronary intervention to proximal-mid LAD using drug-eluting stent (ELSA) 2.75/24mm (post-dil 3.5mm) guided by intra-vascular ultrasound (IVUS). Patient remained stable during the entire procedure. No complications. Hemostasis with TR Band. Plan: Patient loaded with ASA 325mg and Plavix 600mg. Should be discharged home keeping ASA 81mg daily and Plavix 75mg. Compared to the pre-procedural EKG, post-procedural EKG with no new abnormalities and no signs of acute coronary syndrome. Keep hydration 100mL/h for at least 3 hours, ideally 6 hours. Patient may be discharged home after bed rest for 3 hours. Constant check for bleeding. Maintain compression band (CB) for 60 minutes past procedure. Remove 3mL of air from CB every 15 minutes until fully deflated. If recurrent bleeding occurs, re-inflate with enough air to fully restore hemostasis(2 to 3 mL, maximum of 18 mL). Maintain CB at this same level for 30 minutes before attempting to re-deflate. Once fully deflated, carefully remove CB and place a sterile dressing over access site. Observe for one hour, checking pulse every 15 minutes. Instruct patient not to use or bend their wrist for four hours. Would suggest GDMT for the other lesions. Complications: None; patient tolerated the procedure well. Disposition: Home Condition: stable Attending Attestation: I was present and scrubbed for the entire procedure. El Silveira * Pre-Sedation Documentation - CAROLYN Lin DNP - 10/16/2023 8:55 AM EST Sedation Plan ASA 2 Mallampati class: II. Risks, benefits, and alternatives discussed with patient. documented in this [facility] Work Phone: [phone] 363-114501-11-2024 Note* Op Note - El Silveira MD - 10/16/2023 10:00 AM EST Left Heart Cath Operative Note Date: 10/16/2023 OR 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 Name: Shanna Garcia, : 1955, Age: 68 y.o., , Sex: female Diagnosis Pre-op Diagnosis * Atherosclerosis [I70.90] Post-op Diagnosis * Atherosclerosis [I70.90] Procedures Left Heart Cath 82090 - MD CATH PLMT L HRT & ARTS W/NJX & ANGIO IMG S&I Surgeons * El Silveira - Primary Resident/Fellow/Other Career And Guidance Counselor: Surgeon(s) and Role: Procedure Summary Anesthesia: Moderate Sedation ASA: ASA status not filed in the log. Anesthesia Staff: No anesthesia staff entered. Estimated Blood Loss: 05mL Intra-op Medications: * Intraprocedure medication information is unavailable because the case startand end events have not been set * Intraprocedure I/O Totals None Specimen: No specimens collected Staff: Devops: Sarah Velazquez RN; Jessica Clark RN Drains and/or Catheters: * None in log * Tourniquet Times: Implants: Implants Type Name Action Serial No. Stent STENT, MALGORZATA XD, MR , 2.75 X 24MM - [id number] Implanted Findings: Severe lesion proximal-mid LAD Indications: Shanna Garcia is an 68 y.o. female who is having surgery for Atherosclerosis [I70.90]. The patient was seen in the preoperative area. The risks, benefits, complications, treatment options, non-operative alternatives, expected recovery and outcomes were discussed with the patient. The possibilities of reaction to medication, pulmonary aspiration, injury to surrounding structures, bleeding, recurrent infection, the need for additional procedures, failure to diagnose a condition, and creating a complication requiring transfusion or operation were discussed with the patient. The patient concurred with the proposed plan, giving informed consent. The site of surgery was properly noted/marked if necessary per policy. The patient has been actively warmed in preoperative area. Procedure Details: Procedure: - Left Heart Catheterization - Percutaneous Coronary Intervention to prox-mid LAD with Drug-eluting Stent implantation, guided by IVUS R radial artery access with 6F sheath. Hemodynamic measurements. S/P Left heart catheterization (LHC) using JR 6F guide catheter showed: - Left Coronary Artery system dominance (LCx) - Double Vessel Coronary Artery Disease - Non-dominant RCA with 90% lesion - Prox-mid LAD with diffuse 90% disease - Dominant LCx with non-obstructive coronary artery disease Significant coronary artery disease with severe obstruction in the prox-mid LAD, heavily calcified 90% lesion. Heparinization 100ui/Kg. ACT > 250. S/P successful percutaneous coronary intervention to proximal-mid LAD using drug-eluting stent (ELSA) 2.75/24mm (post-dil 3.5mm) guided by intra-vascular ultrasound (IVUS). Patient remained stable during the entire procedure. No complications. Hemostasis with TR Band. Plan: Patient loaded with ASA 325mg and Plavix 600mg. Should be discharged home keeping ASA 81mg daily and Plavix 75mg. Compared to the pre-procedural EKG, post-procedural EKG with no new abnormalities and no signs of acute coronary syndrome. Keep hydration 100mL/h for at least 3 hours, ideally 6 hours. Patient may be discharged home after bed rest for 3 hours. Constant check for bleeding. Maintain compression band (CB) for 60 minutes past procedure. Remove 3mL of air from CB every 15 minutes until fully deflated. If recurrent bleeding occurs, re-inflate with enough air to fully restore hemostasis(2 to 3 mL, maximum of 18 mL). Maintain CB at this same level for 30 minutes before attempting to re-deflate. Once fully deflated, carefully remove CB and place a sterile dressing over access site. Observe for one hour, checking pulse every 15 minutes. Instruct patient not to use or bend their wrist for four hours. Would suggest GDMT for the other lesions. Complications: None; patient tolerated the procedure well. Disposition: Home Condition: stable Attending Attestation: I was present and scrubbed for the entire procedure. El Silveira [facility] Work Phone: [phone]) 223-203301-11-2024 Note* Pre-Sedation Documentation - CAROLYN Lin DNP - 10/16/2023 8:55 AM EST Sedation Plan ASA 2 Mallampati class: II. Risks, benefits, and alternatives discussed with patient. [facility] Work Phone: [phone]) 887-761801-11-2024 History and physical note* CAROLYN Lin DNP - 10/16/2023 8:51 AM EST History Of Present Illness Shanna Garcia is a 68 y.o. year old non-smoker female patient with past medical history significant forhypertension, S/P appendectomy, S/P back surgery. Patient has been complaining of shortness of breath and chest tightness prompting a stress test to be ordered which was inconclusive for ischemia, therefore a LHC was recommended to rule out obstructive coronary artery disease. Past Medical History Past Medical History: Diagnosis Date Hypertension Personal history of other diseases of the circulatory system History of hypertension Surgical History Past Surgical History: Procedure Laterality Date SECTION, CLASSIC OTHER SURGICAL HISTORY 08/22/2021 Appendectomy OTHER SURGICAL HISTORY 08/22/2021 Back surgery THROAT SURGERY goiter removed Social History She reports that she has never smoked. She has never used smokeless tobacco. She reports current alcohol use. She reports that she does not use drugs. Family History Family History Problem Relation Name Age of Onset Hypertension Mother Diabetes Mother Heart disease Father Stroke Father CVA Diabetes Father Hypertension Father Other (cardiac disorder) Father Allergies Augmentin [amoxicillin-pot clavulanate], Hydrocodone-acetaminophen, Peanut, Penicillins, Propoxyphene n-acetaminophen, Propoxyphene-acetaminophen, and Sulfamethoxazole-trimethoprim Review of Systems A 10-point system review was completed and was negative except as noted in the HPI. Physical Exam General: awake, alert and oriented. No acute distress. Skin: Skin is warm, dry and intact without rashes or lesions. HEENT: normocephalic, atraumatic; conjunctivae are clear without exudates or hemorrhage. Sclera is non-icteric. Eyelids are normal in appearance without swelling or lesions. Hearing intact. Nares arepatent bilaterally. Moist mucous membranes. Cardiovascular: heart rate and rhythm are normal. No murmurs, gallops, or rubs are auscultated. S1 and S2 are heard and are of normal intensity. No JVD, no carotid bruits Respiratory: bilateral lung sounds clear to auscultations without rales, rhonchi, or wheezes. No accessory muscle use or stridor Gastrointestinal: non-distended, non-tender Genitourinary: exam deferred Musculoskeletal: ROM intact, no deformities Extremities: pulses palpable bilaterally; no swelling or erythema Neurological: no focal deficits; gait steady Psychiatric: appropriate mood and affect; good judgment and insight Last Recorded Vitals Blood pressure (!) 164/92, pulse 90, temperature 36.9 C (98.4 F), temperature source Temporal, resp. rate 18, height 1.575 m (5' 2.01), weight 89.7 kg (197 lb 12 oz), SpO2 99 %. Relevant Results Exercise Stress Test Patient Name: SHANNA GARCIA Ordering Provider: [id number] SILVEIRA Study Date: 07/28/2023 Reading Physician: Gustavo Silveira MD MRN/PID: [id number] Supervising Physician: Gustavo Silveira MD Fellow: Date of /Age: 11 1955 Fellow: years Gender: F Nurse: ADRIÁN Admit Date: 07/28/2023 Press Worker Helper: Jayjay Aranda ASBESTOS ABATEMENT TECHNICIAN Admission Status: Outpatient Wood Machinist: ADRIÁN Height: 157.48 cm Technologist: Weight: 88.45 kg Additional Staff: BSA: 1.89 m2 BMI: 35.67 kg/m2 Patient Location: Study Type: STRESS TEST ONLY Diagnosis/ICD: Dyspnea, unspecified-R06.00 Indication: Dyspnea on Exertion CPT Codes: Stress Test Interpretation-95653; Stress Test Supervision-[id number] Falls Risk: Low: Patient has low risk for sustaining a fall; environmental safety interventions in place. Study Details: Correct procedure and correct patient verified verbally and with ID Band checked. Patient History: Family history of coronary artery disease. Allergies: Augmentin, PCN, Sulfa Drugs,. Smoker: Never. Diabetes: No. Patient Performance: The peak heart rate achieved was 133 bpm, which was 87 % of the age predicted target heart rate of 153 bpm. The resting blood pressure was 148/98 mmHg with a heart rate of 81 bpm. The standing blood pressure was 154/95 mmHg with a heart rate of 85 bpm. The patient's functional capacity was average. The patient developed shortness of breath during the stress exam. The symptoms resolved with rest. The blood pressure response was normal. The test was terminated due to: dyspneaand fatigue. Baseline ECG: Resting ECG showed normal sinus rhythm with frequent premature ventricular contractions and normal tracing. Stress ECG: Stress ECG showed normal sinus rhythm, with frequent premature ventricular contractions. Stress Stage Data: + +---+------+-------+ HR Sys BP Hartman BP + +---+------+-------+ Baseline Resting 81 148 98 + +---+------+-------+ Baseline Standing 85 154 95 + +---+------+-------+ Stage I 123 149 86 + +---+------+-------+ Stage II 133 175 86 + +---+------+-------+ Recovery ECG: Recovery ECG showed normal sinus rhythm, with no abnormal findings. The heart rate recovery was normal. + +---+------+-------+ HR Sys BP Hartman BP + +---+------+-------+ Recovery I 121 + +---+------+-------+ Recovery II 103 164 86 + +---+------+-------+ Recovery III 101 + +---+------+-------+ Recovery IV 97 150 91 + +---+------+-------+ Summary: 1. Baseline EKG showing normal sinus rhythm with non-specific ST-T segment changes and frequent PVCs. 2. Patient exercised for 4 min. 3. Heart rate response to exercise is normal. Blood pressure response to exercise is normal. 4. Exercise capacity is below average for age. 5. The test was terminated due to symptoms: dyspnea and fatigue. 6. With exercise, patient developed symptoms of shortness of breath that improved by resting. 7. With exercise, EKG tracing with bad quality that could not be interpreted. 8. Exercise stress EKG is indeterminate for ischemia. Would suggest alternative method for evaluation. 9. Adequate level of stress achieved. [id number] El Silveira MD Electronically signed on 07/28/2023 at 4:55:11 PM Assessment/Plan Principal Problem: Atherosclerosis Chest pain Shortness of breath Tila Sneed, ELECTRONIC SYSTEMS SECURITY ASSESSMENT-HEEL LIFT GOUGER, DNP [facility] Work Phone: 1(283) 309-483601-11-2024 History and physical note* Tila Sneed, ELECTRONIC SYSTEMS SECURITY ASSESSMENT-HEEL LIFT GOUGER, DNP - 10/16/2023 8:51 AM EST History Of Present Illness Shanna Garcia is a 68 y.o. year old non-smoker female patient with past medical history significant forhypertension, S/P appendectomy, S/P back surgery. Patient has been complaining of shortness of breath and chest tightness prompting a stress test to be ordered which was inconclusive for ischemia, therefore a C was recommended to rule out obstructive coronary artery disease. Past Medical History Past Medical History: Diagnosis Date Hypertension Personal history of other diseases of the circulatory system History of hypertension Surgical History Past Surgical History: Procedure Laterality Date SECTION, CLASSIC OTHER SURGICAL HISTORY 08/22/2021 Appendectomy OTHER SURGICAL HISTORY 08/22/2021 Back surgery THROAT SURGERY goiter removed Social History She reports that she has never smoked. She has never used smokeless tobacco. She reports current alcohol use. She reports that she does not use drugs. Family History Family History Problem Relation Name Age of Onset Hypertension Mother Diabetes Mother Heart disease Father Stroke Father CVA Diabetes Father Hypertension Father Other (cardiac disorder) Father Allergies Augmentin [amoxicillin-pot clavulanate], Hydrocodone-acetaminophen, Peanut, Penicillins, Propoxyphene n-acetaminophen, Propoxyphene-acetaminophen, and Sulfamethoxazole-trimethoprim Review of Systems A 10-point system review was completed and was negative except as noted in the HPI. Physical Exam General: awake, alert and oriented. No acute distress. Skin: Skin is warm, dry and intact without rashes or lesions. HEENT: normocephalic, atraumatic; conjunctivae are clear without exudates or hemorrhage. Sclera is non-icteric. Eyelids are normal in appearance without swelling or lesions. Hearing intact. Nares arepatent bilaterally. Moist mucous membranes. Cardiovascular: heart rate and rhythm are normal. No murmurs, gallops, or rubs are auscultated. S1 and S2 are heard and are of normal intensity. No JVD, no carotid bruits Respiratory: bilateral lung sounds clear to auscultations without rales, rhonchi, or wheezes. No accessory muscle use or stridor Gastrointestinal: non-distended, non-tender Genitourinary: exam deferred Musculoskeletal: ROM intact, no deformities Extremities: pulses palpable bilaterally; no swelling or erythema Neurological: no focal deficits; gait steady Psychiatric: appropriate mood and affect; good judgment and insight Last Recorded Vitals Blood pressure (!) 164/92, pulse 90, temperature 36.9 C (98.4 F), temperature source Temporal, resp. rate 18, height 1.575 m (5' 2.01), weight 89.7 kg (197 lb 12 oz), SpO2 99 %. Relevant Results Exercise Stress Test Patient Name: SHANNA GARCIA Ordering Provider: [id number] SILVEIRA Study Date: 07/28/2023 Reading Physician: Gustavo Silveira MD MRN/PID: [id number] Supervising Physician: Gustavo Silveira MD Fellow: Date of /Age: 11 1955 Fellow: years Gender: F Nurse: ADRIÁN Admit Date: 07/28/2023 Press Worker Helper: Jayjay Aranda ASBESTOS ABATEMENT TECHNICIAN Admission Status: Outpatient Wood Machinist: ADRIÁN Height: 157.48 cm Technologist: Weight: 88.45 kg Additional Staff: BSA: 1.89 m2 BMI: 35.67 kg/m2 Patient Location: Study Type: STRESS TEST ONLY Diagnosis/ICD: Dyspnea, unspecified-R06.00 Indication: Dyspnea on Exertion CPT Codes: Stress Test Interpretation-86776; Stress Test Supervision-[id number] Falls Risk: Low: Patient has low risk for sustaining a fall; environmental safety interventions in place. Study Details: Correct procedure and correct patient verified verbally and with ID Band checked. Patient History: Family history of coronary artery disease. Allergies: Augmentin, PCN, Sulfa Drugs,. Smoker: Never. Diabetes: No. Patient Performance: The peak heart rate achieved was 133 bpm, which was 87 % of the age predicted target heart rate of 153 bpm. The resting blood pressure was 148/98 mmHg with a heart rate of 81 bpm. The standing blood pressure was 154/95 mmHg with a heart rate of 85 bpm. The patient's functional capacity was average. The patient developed shortness of breath during the stress exam. The symptoms resolved with rest. The blood pressure response was normal. The test was terminated due to: dyspneaand fatigue. Baseline ECG: Resting ECG showed normal sinus rhythm with frequent premature ventricular contractions and normal tracing. Stress ECG: Stress ECG showed normal sinus rhythm, with frequent premature ventricular contractions. Stress Stage Data: + +---+------+-------+ HR Sys BP Hartman BP + +---+------+-------+ Baseline Resting 81 148 98 + +---+------+-------+ Baseline Standing 85 154 95 + +---+------+-------+ Stage I 123 149 86 + +---+------+-------+ Stage II 133 175 86 + +---+------+-------+ Recovery ECG: Recovery ECG showed normal sinus rhythm, with no abnormal findings. The heart rate recovery was normal. + +---+------+-------+ HR Sys BP Hartman BP + +---+------+-------+ Recovery I 121 + +---+------+-------+ Recovery II 103 164 86 + +---+------+-------+ Recovery III 101 + +---+------+-------+ Recovery IV 97 150 91 + +---+------+-------+ Summary: 1. Baseline EKG showing normal sinus rhythm with non-specific ST-T segment changes and frequent PVCs. 2. Patient exercised for 4 min. 3. Heart rate response to exercise is normal. Blood pressure response to exercise is normal. 4. Exercise capacity is below average for age. 5. The test was terminated due to symptoms: dyspnea and fatigue. 6. With exercise, patient developed symptoms of shortness of breath that improved by resting. 7. With exercise, EKG tracing with bad quality that could not be interpreted. 8. Exercise stress EKG is indeterminate for ischemia. Would suggest alternative method for evaluation. 9. Adequate level of stress achieved. [id number] El Silveira MD Electronically signed on 07/28/2023 at 4:55:11 PM Assessment/Plan Principal Problem: Atherosclerosis Chest pain Shortness of breath Tila Sneed, ELECTRONIC SYSTEMS SECURITY ASSESSMENT-HEEL LIFT GOUGER, DNP documented in this [facility] Work Phone: [phone]) 864-279212-05-2023 History of Present illness Narrative* El Silveira MD - 09/09/2023 10:45 AM EST No chief complaint on file. HPI: I was requested by Dr. Vaca to evaluate this patient in consultation for cardiac assessment. Shanna Garcia is a 68 y.o. year old non-smoker female patient with past medical history significant forhypertension, S/P appendectomy, S/P back surgery, coming for cardiovascular assessment. She complains of shortness of breath and chest tightness for 3 weeks. Her history dates back 3 weeks ago when she was in a swimming pool for 6 hours, started feeling metallic taste on her mouth and had shortnessof breath on the upcoming days. 1 week ago, she was pushing the trash out of her home and felt SOB on exertion associated with chest tightness, that improved while resting. She was diagnosed with urinary infection and treated with antibiotics accordingly. She believes that her symptoms are partially explained by volume overloading for voluntary increasing in water intake to tackle the UTI. She denies palpitations, leg edema, lightheadedness, headaches, fever, chills, orthopnea, paroxysmal nocturnal dyspnea or syncope. Notably, her BP is usually on the higher side - ~140/80mmHg. The EKG today shows normal sinus rhythm with no signs of ACS. CXR showing cardiomegaly (long-term) Nuclear stress test is inconclusive for ischemia. Past Medical History Past Medical History: Diagnosis Date Hypertension Personal history of other diseases of the circulatory system History of hypertension Past Surgical History Past Surgical History: Procedure Laterality Date SECTION, CLASSIC OTHER SURGICAL HISTORY 08/22/2021 Appendectomy OTHER SURGICAL HISTORY 08/22/2021 Back surgery THROAT SURGERY goiter removed Past Family History Family History Problem Relation Name Age of Onset Hypertension Mother Diabetes Mother Heart disease Father Stroke Father CVA Diabetes Father Hypertension Father Other (cardiac disorder) Father Allergy History Allergies Allergen Reactions Augmentin [Amoxicillin-Pot Clavulanate] Unknown Hydrocodone-Acetaminophen Other vomiting Peanut Unknown Penicillins Unknown Propoxyphene N-Acetaminophen Unknown Propoxyphene-Acetaminophen Unknown vomiting Sulfamethoxazole-Trimethoprim Unknown Past Social History Social History Socioeconomic History Marital status: Spouse name: None Number of children: None Years of education: None Highest education level: None Occupational History None Tobacco Use Smoking status: Never Smokeless tobacco: Never Vaping Use Vaping Use: Never used Substance and Sexual Activity Alcohol use: Yes Comment: very rarely Drug use: Never Sexual activity: None Other Topics Concern None Social History Narrative None Social Determinants of Health Financial Resource Strain: Not on file Food Insecurity: Not on file Transportation Needs: Not on file Physical Activity: Not on file Stress: Not on file Social Connections: Not on file Intimate Partner Violence: Not on file Housing Stability: Not on file Social History Tobacco Use Smoking Status Never Smokeless Tobacco Never Review of Systems: Constitutional: not feeling poorly. Cardiovascular: no chest pain. Respiratory: no cough. Gastrointestinal: no change in bowel habits. Genitourinary: no dysuria. Objective Data: Last Recorded Vitals: Vitals: 09/09/23 1027 BP: 122/86 Pulse: 65 SpO2: 97% Weight: 88.5 kg (195 lb) Height: 1.575 m (5' 2) Last Labs: CBC - No results in last year. _ _ _ _ CMP - No results in last year. _ _ _ --- _ _ _ _ _ PTT - No results in last year. _ _ _ No results found for: TROPHS, BNP, HGBA1C, LDLCALC, VLDL Patient Medications: Outpatient Encounter Medications as of 09/09/2023 Medication Sig Dispense Refill lisinopriL-hydrochlorothiazide 20-12.5 mg tablet Take 1 tablet by mouth 2 times a day. amLODIPine (Norvasc) 5 mg tablet TAKE 1 TABLET BY MOUTH EVERY DAY DIRECTED 90 tablet 3 No facility-administered encounter medications on file as of 09/09/2023. Physical Exam: General: alert, oriented and in no acute distress HEENT: NC/AT; EOMI; PERRLA, external ear is normal Neck: supple; no JVD Chest: CTAB; no wheezing CVS: regular rhythm, S1S2 normal, no murmurs Abdomen: Soft, NT/ND, no organomegaly Extremities: no clubbing/cyanosis/edema Neuro: Grossly intact Psychiatric: Normal mood and affect Past Cardiology Results (Last 3 Years): EKG: ECG 12 lead (Clinic Performed) 07/10/2023 ECG 12 Lead 07/10/2023 Echo: Echo Results: Transthoracic Echo (TTE) Complete 07/28/2023 [place] [address] [phone], TRANSTHORACIC ECHOCARDIOGRAM REPORT Patient Name: SHANNA GARCIA Reading Physician: [id number] Abraham Espinal MD Study Date: 07/28/2023 Ordering Provider: [id number] EL SILVEIRA MRN/PID: [id number] Fellow: Nurse: Yvonne Finn RN Date of /Age: 11 1955 Wood Machinist: Winston Najera RDCS years Gender: F Additional Staff: Height: 157.48 cm Admit Date: Weight: 88.45 kg Admission Status: Outpatient BSA: 1.89 m2 Department Location: [facility] Echo Lab Blood Pressure: 125 /78 mmHg Study Type: TRANSTHORACIC ECHO (TTE) COMPLETE Diagnosis/ICD: Shortness of breath-R06.02 CPT Codes: Echo Complete w Full Doppler-13842 Study Detail: The following Echo studies were performed: 2D, M-Mode, Doppler and color flow. Agitated saline used as a contrast agent for intraseptal flow evaluation and Definity used as a contrast agent for endocardial border definition. Total contrast used for this procedure was 2.00cc mL via IV push. PHYSICIAN INTERPRETATION: Left Ventricle: Left ventricular systolic function is normal, with an estimated ejection fraction of 60-65%. There are no regional wall motion abnormalities. The left ventricular cavity size is normal. Spectral Doppler shows a pseudonormal pattern of left ventricular diastolic filling. Left Atrium: The left atrium is normal in size. A bubble study using agitated saline was performed.Bubble study is negative. Right Ventricle: The right ventricle is normal in size. There is normal right ventricular global systolic function. Right Atrium: The right atrium was not well visualized. Aortic Valve: The aortic valve was not well visualized. There is no evidence of aortic valve regurgitation. The peak instantaneous gradient of the aortic valve is 13.5 mmHg. The mean gradient of the aortic valve is 8.0 mmHg. Mitral Valve: The mitral valve is normal in structure. There is no evidence of mitral valve regurgitation. Tricuspid Valve: The tricuspid valve was not well visualized. No evidence of tricuspid regurgitation. Pulmonic Valve: The pulmonic valve is not well visualized. The pulmonic valve regurgitation was notwell visualized. Pericardium: There is no pericardial effusion noted. Aorta: The aortic root is normal. Systemic Veins: The inferior vena cava appears to be of normal size. There is IVC inspiratory collapse greater than 50%. CONCLUSIONS: 1. Left ventricular systolic function is normal with a 60-65% estimated ejection fraction. 2. Spectral Doppler shows a pseudonormal pattern of left ventricular diastolic filling. QUANTITATIVE DATA SUMMARY: 2D MEASUREMENTS: Normal Ranges: Ao Root d: 3.40 cm (2.0-3.7cm) LAs: 3.90 cm (2.7-4.0cm) IVSd: 0.84 cm (0.6-1.1cm) LVPWd: 0.77 cm (0.6-1.1cm) LVIDd: 4.22 cm (3.9-5.9cm) LVIDs: 2.80 cm LV Mass Index: 54.4 g/m2 LV % FS 33.6 % LA VOLUME: Normal Ranges: LA Vol A4C: 22.3 ml (22+/-6mL/m2) LA Vol A2C: 18.2 ml LA Vol BP: 22.2 ml LA Vol Index A4C: 11.8ml/m2 LA Vol Index A2C: 9.6 ml/m2 LA Vol Index BP: 11.7 ml/m2 LA Area A4C: 11.5 cm2 LA Area A2C: 9.4 cm2 LA Major [place] A4C: 5.0 cm LA Major [place] A2C: 4.2 cm LA Volume Index: 11.5 ml/m2 LA Vol A4C: 21.8 ml LA Vol A2C: 18.2 ml LV SYSTOLIC FUNCTION BY 2D PLANIMETRY (MOD): Normal Ranges: EF-A4C View: 72.0 % (>=55%) EF-A2C View: 60.5 % EF-Biplane: 65.3 % LV DIASTOLIC FUNCTION: Normal Ranges: MV Peak E: 0.70 m/s (0.7-1.2 m/s) MV Peak A: 0.78 m/s (0.42-0.7 m/s) E/A Ratio: 0.90 (1.0-2.2) MV lateral e' 0.10 m/s MV medial e' 0.05 m/s MITRAL VALVE: Normal Ranges: MV DT: 197 msec (150-240msec) AORTIC VALVE: Normal Ranges: AoV Vmax: 1.84 m/s (<=1.7m/s) AoV Peak P.5 mmHg (<20mmHg) AoV Mean P.0 mmHg (1.7-11.5mmHg) LVOT Max Michael: 1.16 m/s (<=1.1m/s) AoV VTI: 37.80 cm (18-25cm) LVOT VTI: 23.10 cm LVOT Diameter: 1.80 cm (1.8-2.4cm) AoV Area, VTI: 1.56 cm2 (2.5-5.5cm2) AoV Area,Vmax: 1.60 cm2 (2.5-4.5cm2) AoV Dimensionless Index: 0.61 RIGHT VENTRICLE: RV Basal 3.79 cm RV Mid 2.75 cm RV Major 7.1 cm TAPSE: 16.9 mm RV s' 0.20 m/s [id number] Abraham Espinal MD Electronically signed on 07/28/2023 at 12:43:30 PM Final Cath: No results found for this or any previous visit from the past 1095 days. CV NCDR CATHPCI V5 COLLECTION FORM Stress Test: Stress Test 07/28/2023 Stress test: 1. Baseline EKG showing normal sinus rhythm with non-specific ST-T segment changes and frequent PVCs. 2. Patient exercised for 4 min. 3. Heart rate response to exercise is normal. Blood pressure response to exercise is normal. 4. Exercise capacity is below average for age. 5. The test was terminated due to symptoms: dyspnea and fatigue. 6. With exercise, patient developed symptoms of shortness of breath that improved by resting. 7. With exercise, EKG tracing with bad quality that could not be interpreted. 8. Exercise stress EKG is indeterminate for ischemia. Would suggest alternative method for evaluation. 9. Adequate level of stress achieved Cardiac Imaging: No results found for this or any previous visit from the past 1095 days. Assessment/Plan In summary, Mrs. Shanna Garcia is a 68 y.o. year old non-smoker female patient with past medical history significant for hypertension, S/P appendectomy, S/P back surgery, coming for cardiovascular assessment of SOB on exertion. Assessment # SOB on exertion / chest tightness - 3 weeks ago when she was in a swimming pool for 6 hours, started feeling metallic taste on her mouth and had shortness of breath on the upcoming days. 1 week ago, she was pushing the trash out of her home and felt SOB on exertion associated with chest tightness, that improved while resting. - She was diagnosed with urinary infection and treated with antibiotics accordingly. - She believes that her symptoms are partially explained by volume overloading for voluntary increasing in water intake to tackle the UTI. - The EKG today shows normal sinus rhythm with no signs of ACS. - CXR showing cardiomegaly. - The echocardiogram showed normal LVEF 60-65% with no wall motion abnormalities. Pseudonormal relaxation pattern of left ventricle diastolic filling. - CT calcium scoring is elevated 376. - Stress test is inconclusive for ischemia. - Will request treadmill stress test, echocardiogram, CT calcium scoring - Will request [facility]. - The natural history of atherosclerosis was discussed with the patient. The treatment options including GDMT, percutaneous intervention or surgical intervention were discussed with the patient. All the risks, benefits and alternative procedures were discussed. Complications of the procedure were also discussed, including but not limited to risk of bleeding, stroke, infarct, infection, urgent cardiac surgery or . All questions were answered and the informed consent was obtained. After aforementioned testing and consultation, Left Heart Catheterization with potential Percutaneous CoronaryIntervention would be a reasonable approach - Will start ASA 81mg daily, Atorvastatin 40mg daily. - Discuss beta-adelaida upon returnif the patient is candidate. # Hypertension - More controlled BP after increasing Lisinopril / hydrochlorothiazide - Keep Lisinopril/hydrochlorothiazide to 40/25mg dialy and keep Amlodipine 5mg daily. We have discussed the most common side effects of the prescribed medications, indications, drug interactions, risks, complications, and alternatives of medications/therapeutics were explained and discussed. The patient has been requested to monitor closely for any untoward side effects or complications of medications. The patient has been strongly advised to be compliant with the recommendations,all the questions and concerns have been addressed. The patient has been also instructed to call, to return sooner or to go to the emergency department if symptoms persist or get worsen. The patient voiced understanding and denies any further questions at this time. This note was transcribed using the [employer] Dictation system. There may be grammatical, punctuation,or verbiage errors that occur with voice recognition programs. Counseling greater than 50% of visit regarding all cardiac issues. Thank you for allowing me to participate in the care of this patient. Please do not hesitate to contact me with any further questions or concerns. El Silveira MD Cardiology documented in this [facility] Work Phone: 1(772) 613-202110-05-2023 History of Present illness Narrative* El Silveira MD - 07/10/2023 2:00 PM EDT HPI: I was requested by Dr. Vaca to evaluate this patient in consultation for cardiac assessment. Shanna Garcia is a 67 y.o. year old non-smoker female patient with past medical history significant forhypertension, S/P appendectomy, S/P back surgery, coming for cardiovascular assessment. She complains of shortness of breath and chest tightness for 3 weeks. Her history dates back 3 weeks ago when she was in a swimming pool for 6 hours, started feeling metallic taste on her mouth and had shortnessof breath on the upcoming days. 1 week ago, she was pushing the trash out of her home and felt SOB on exertion associated with chest tightness, that improved while resting. She was diagnosed with urinary infection and treated with antibiotics accordingly. She believes that her symptoms are partially explained by volume overloading for voluntary increasing in water intake to tackle the UTI. She denies palpitations, leg edema, lightheadedness, headaches, fever, chills, orthopnea, paroxysmal nocturnal dyspnea or syncope. Notably, her BP is usually on the higher side - ~140/80mmHg. The EKG today shows normal sinus rhythm with no signs of ACS. CXR showing cardiomegaly (long-term) Review of Systems Constitutional: not feeling poorly. Cardiovascular: no chest pain. Respiratory: no cough. Gastrointestinal: no change in bowel habits. Genitourinary: no dysuria. Past Medical History Past Medical History: Diagnosis Date Hypertension Personal history of other diseases of the circulatory system History of hypertension Past Surgical History Past Surgical History: Procedure Laterality Date SECTION, CLASSIC OTHER SURGICAL HISTORY 08/22/2021 Appendectomy OTHER SURGICAL HISTORY 08/22/2021 Back surgery THROAT SURGERY goiter removed Past Family History Family History Problem Relation Name Age of Onset Hypertension Mother Diabetes Mother Heart disease Father Stroke Father CVA Diabetes Father Hypertension Father Other (cardiac disorder) Father Allergy History Allergies Allergen Reactions Augmentin [Amoxicillin-Pot Clavulanate] Unknown Hydrocodone-Acetaminophen Other vomiting Peanut Unknown Penicillins Unknown Propoxyphene N-Acetaminophen Unknown Propoxyphene-Acetaminophen Unknown vomiting Sulfamethoxazole-Trimethoprim Unknown Past Social History Social History Socioeconomic History Marital status: Spouse name: None Number of children: None Years of education: None Highest education level: None Occupational History None Tobacco Use Smoking status: Never Smokeless tobacco: Never Vaping Use Vaping Use: Never used Substance and Sexual Activity Alcohol use: Yes Comment: very rarely Drug use: Never Sexual activity: None Other Topics Concern None Social History Narrative None Social Determinants of Health Financial Resource Strain: Not on file Food Insecurity: Not on file Transportation Needs: Not on file Physical Activity: Not on file Stress: Not on file Social Connections: Not on file Intimate Partner Violence: Not on file Housing Stability: Not on file Objective Data: Last Recorded Vitals: Vitals: 07/10/23 1417 BP: 140/88 Pulse: 77 SpO2: 97% Weight: 88.5 kg (195 lb) Height: 1.575 m (5' 2) Last Labs: CBC - No results in last year. _ _ _ _ CMP - No results in last year. _ _ _ --- _ _ _ _ _ PTT - No results in last year. _ _ _ No results found for: TROPHS, BNP, HGBA1C, LDLCALC, VLDL Patient Medications: Outpatient Encounter Medications as of 07/10/2023 Medication Sig Dispense Refill amLODIPine (Norvasc) 5 mg tablet TAKE 1 TABLET BY MOUTH EVERY DAY DIRECTED 90 tablet 3 lisinopriL-hydrochlorothiazide 20-12.5 mg tablet Take 1 tablet by mouth once daily. No facility-administered encounter medications on file as of 07/10/2023. Physical Exam: General: alert, oriented and in no acute distress HEENT: NC/AT; EOMI; PERRLA, external ear is normal Neck: supple; no JVD Chest: CTAB; no wheezing CVS: regular rhythm, S1S2 normal, no murmurs Abdomen: Soft, NT/ND, no organomegaly Extremities: no clubbing/cyanosis/edema Neuro: Grossly intact Psychiatric: Normal mood and affect Assessment/Plan In summary, Mrs. Shanna Garcia is a 67 y.o. year old non-smoker female patient with past medical history significant for hypertension, S/P appendectomy, S/P back surgery, coming for cardiovascular assessment of SOB on exertion. Assessment # SOB on exertion / chest tightness - 3 weeks ago when she was in a swimming pool for 6 hours, started feeling metallic taste on her mouth and had shortness of breath on the upcoming days. 1 week ago, she was pushing the trash out of her home and felt SOB on exertion associated with chest tightness, that improved while resting. - She was diagnosed with urinary infection and treated with antibiotics accordingly. - She believes that her symptoms are partially explained by volume overloading for voluntary increasing in water intake to tackle the UTI. - The EKG today shows normal sinus rhythm with no signs of ACS. - CXR showing cardiomegaly - Will request treadmill stress test, echocardiogram, CT calcium scoring - Follow up after tests. # Hypertension - Notably, her BP is usually on the higher side - ~140/80mmHg. - Will increase Lisinopril/hydrochlorothiazide to 40/25mg dialy - Keep Amlodipine 5mg daily. We have discussed the most common side effects of the prescribed medications, indications, drug interactions, risks, complications, and alternatives of medications/therapeutics were explained and discussed. The patient has been requested to monitor closely for any untoward side effects or complications of medications. The patient has been strongly advised to be compliant with the recommendations,all the questions and concerns have been addressed. The patient has been also instructed to call, to return sooner or to go to the emergency department if symptoms persist or get worsen. The patient voiced understanding and denies any further questions at this time. This note was transcribed using the [employer] Dictation system. There may be grammatical, punctuation,or verbiage errors that occur with voice recognition programs. Thank you, Dr. Vaca, for allowing me to participate in the care of this patient. Please do not hesitate to contact me with any further questions or concerns. I spent 60 minutes in the professional and overall care of this patient. El Silveira MD Cardiology documented in this [facility] Work Phone: [phone] 383-852009-25-2023 History of Present illness Narrative* Kevan Vaca PA-C - 06/30/2023 8:50 AM EDT Subjective Patient ID: Shanna Garcia is a 67 y.o. female who presents for Shortness of Breath ([facility] ER seen last week for SOB with exertion. Patient states x-rays and EKG done with normal results. Patient states overthe weekend ended up going to ER again for severe SOB with exertion./Patient states SOB better overthe past 2 days.). Shortness of Breath Pt presents in ER follow up. Pt was seen 2x over the past week for SOB on exertion. On first ER visit, pt underwent full cardiac work up that was negative. Pt had similar presentation the next day and went back. Abbreviated follow up work up was unremarkable. Since then, symptoms have resolved. Pt was able to walk the dog and engage in normal ADLs without further SOB. Review of Systems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
--- NOTE | 2025-06-18 08:49 | MRI_ITS ---
PROCEDURE: LOWER EXT JOINT ONLY (ROUTINE) 06/18/2025 REASON FOR EXAM: ACHILLES TENDINITIS,PLANTAR FASCIITIS TECHNIQUE: Procedure Code: MRILEJ Modality: MR Procedure: LOWER EXT JOINT ONLY (ROUTINE) T1, T2, stir, multiplanar and multisequence images of the left hindfoot and ankle were obtained without IV contrast administration. COMPARISON: COMPARISON : None FINDINGS: Bones: There is a 0.7 x 0.5 cm developing osteochondral defect in the superior medial talar dome with no free fragment. There is subcortical cyst formation with adjacent marrow edema in the proximal pole of the middle cuneiform. There is normal articulation of the ankle joint. No acute fractures or dislocations. Achilles tendon: There is mild distal Achilles tendinitis with a trace amount of fluid in the pre Achilles bursa, with bursitis. There is increased T2 signal, thickening and attenuation at the plantar fascia origin with thickening to a maximum of 1.5 cm with edema in the adjacent calcaneus at the insertion, and adjacent soft tissue edema, with plantar fasciitis. This is most severe in the medial band. Tendons: Evaluation of the peroneal tendons demonstrates no evidence of tendinosis or dislocation. There is increased fluid in the posterior tibial tendon sheath without tendon tear or retraction, mild tenosynovitis. The flexor digitorum longus and flexor hallucis longus tendons are intact. The extensor tendons are intact. The extensor retinaculum is intact and normal in signal. Sinus Tarsi: The subtalar joint is intact. Signal in the sinus tarsi is normal. Transverse and cervical ligaments are intact. Ligaments: Lateral syndesmotic ankle ligaments including the anterior and posterior tibiofibular ligaments are intact. The anterior and posterior talofibular ligaments are intact. The medial ankle ligaments including the deltoid and spring ligaments are intact. Effusion: There is no joint effusion. MRI/Lower Ext Joint Only (Routine) IMPRESSION: There is a 0.7 x 0.5 cm developing osteochondral defect in the superior medial talar dome with no free fragment. There is subcortical cyst formation with adjacent marrow edema in the proximal pole of the middle cuneiform. There is mild distal Achilles tendinitis with a trace amount of fluid in the pr e Achilles bursa, with bursitis. There is increased T2 signal, thickening and attenuation at the plantar fascia origin with thickening to a maximum of 1.5 cm with edema in the adjacent calcaneus at the insertion, and adjacent soft tissue vilma a, with plantar fasciitis. There is increased fluid in the posterior tibial tendon sheath without tendon t ear or retraction, mild tenosynovitis. Reading [facility]
== END | disposition home or self-care (01) ==
LOC: MRI 08:30
PROVIDERS: PCP Internal Medicine; Referring Provider Podiatrist; Visit Provider Podiatrist
DX: M76.62 Achilles tendinitis, left leg (principal); M72.2 Plantar fascial fibromatosis
CPT/HCPCS: 73721